=== PATIENT | female | born 1960 | race African-American/Black ===

== ENCOUNTER 2016-03-31 08:25 | Emergency (ER) | payer OTHER ==
[~2016-03-31] VITALS: Ht 162.6 cm; Wt 68.1 kg
[~2016-03-31 08:25] MED LIST: ALBU8HFA IH; COMBIH IH; GLYB5TAB8 PO; METF500T4 PO; PANT20TA PO; PRAV40 PO; QUET100T PO
[2016-03-31 09:14] LABS: BASOPHILS # (AUTO) 0.02 K/uL (0.00-0.20); BASOPHILS % (AUTO) 0.3 % (0.0-2.0); EOSINOPHILS % (AUTO) 8.27 % (1.0-6.0); HEMATOCRIT 48.9 % (36-46); HEMOGLOBIN 16.1 g/dL (12.0-16.0); MEAN CORPUSCULAR HEMOGLOBIN 30.4 pg (26.0-34.0); MEAN CORPUSCULAR HGB CONC 32.9 G/dL (31.0-37.0); MEAN CORPUSCULAR VOLUME 93 fL (80-100); MONOCYTES # (AUTO) 0.3 K/uL (0.1-1.0); NEUTROPHILS # (AUTO) 3.3 K/uL (1.8-7.7); NEUTROPHILS % (AUTO) 54.5 % (40.0-70.0); PLATELET COUNT (AUTO) 249 K/uL (150-450); RED BLOOD CELL COUNT(AUTO) 5.29 MIL/uL (4.00-5.20); RED CELL DISTRIBUTION WIDTH 14.2 % (11.5-14.5); WHITE BLOOD COUNT (AUTO) 6.1 K/uL (4.5-11.0)
[2016-03-31] MEDS ORDERED: INSULIN REGULAR, HUMAN 100 UNITS/ML IVP ONE ×2 (09:15→12:15)
[2016-03-31] MEDS ORDERED: ALBUTEROL SULFATE 5 MG/ML 20 ML NEB SOLN [BULK] NEB ONE (09:15)
[2016-03-31] MEDS ORDERED: IPRATROPIUM BROMIDE 0.5 MG/2.5 ML NEB SOLUTION NEB ONE ×2 (09:15→12:15)
[2016-03-31] MEDS ORDERED: 0.9% SODIUM CHLORIDE 5 ML NEB SOLUTION NEB ONE ×2 (09:21→12:27)
[2016-03-31 09:41] LABS: ANION GAP 8 mmol/L (8-16); CALCIUM, TOTAL 9.7 mg/dL (8.8-10.5); CARBON DIOXIDE 30 mmol/L (22-29); CHLORIDE 97 mmol/L (98-107); CREATININE 0.95 mg/dL (0.60-1.30); GLOMERULAR FILTR. RATE CALC > 60 mL/min (>60); POTASSIUM 4.5 mmol/L (3.5-5.1); SODIUM SERUM 135 mmol/L (136-145); UREA NITROGEN, BLOOD 11 mg/dL (7-18)
[2016-03-31 09:58] LABS: ALANINE AMINOTRANSFERASE 49 U/L (12-78); ALBUMIN 3.9 g/dL (3.4-5.0); ASPARTATE AMINOTRANSFERASE 34 U/L (15-37); BILIRUBIN,TOTAL 0.2 mg/dL (0.1-1.0); CREATINE KINASE MB 1.2 ng/mL (0-5); CREATINE KINASE, TOTAL 211 U/L (26-192); TOTAL PROTEIN, SERUM 8.2 g/dL (6.4-8.2)
[2016-03-31] MEDS ORDERED: KETOROLAC TROMETHAMINE 30 MG/ML VIAL IVP ONE (11:15)
[2016-03-31 11:51] LABS: GLUCOSE,POINT OF CARE 251 MG/DL (70-110)
[2016-03-31] MEDS ORDERED: ALBUTEROL SULFATE 2.5 MG/0.5 ML NEB SOLUTION NEB ONE (12:15)
[2016-03-31] MEDS ORDERED: PredniSONE 20 MG TABLET PO ONE (12:15)
[2016-03-31 12:16] LABS: GLUCOSE,POINT OF CARE 294 MG/DL (70-110)
[2016-03-31 13:01] LABS: GLUCOSE,POINT OF CARE 202 MG/DL (70-110)
[2016-03-31 13:20] VITALS: BP 135/75
[2016-08-25] MEDS ORDERED: PERCT PO (09:18)
[2016-08-25] MEDS ORDERED: PRED5 PO (09:19)
== END 2016-03-31 14:37 | disposition home or self-care (01) ==
LOC: EMS 08:28
DX: J44.1 Chronic obstructive pulmonary disease with (acute) exacerbation (principal); J45.901 Unspecified asthma with (acute) exacerbation; E11.9 Type 2 diabetes mellitus without complications; F17.210 Nicotine dependence, cigarettes, uncomplicated; Z88.0 Allergy status to penicillin; Z88.1 Allergy status to other antibiotic agents
CPT/HCPCS: 36415; 71010; 80053; 82550; 82553; 82962; 84484; 85025; 93005; 94644; 96374; 96375; 96376; 99285; 99406; J1815; J1885; J7512; J7611; J7613; 94640

== ENCOUNTER 2016-04-29 00:24 | Emergency (ER) | payer OTHER ==
[~2016-04-29] VITALS: Ht 162.6 cm; Wt 68.2 kg
[2016-04-29] MEDS ORDERED: IPRATROPIUM BROMIDE 0.5 MG/2.5 ML NEB SOLUTION NEB ONE ×2 (00:45→02:15)
[2016-04-29] MEDS ORDERED: ALBUTEROL SULFATE 5 MG/ML 20 ML NEB SOLN [BULK] NEB ONE ×2 (00:45→02:15)
[2016-04-29] MEDS ORDERED: 0.9% SODIUM CHLORIDE 5 ML NEB SOLUTION NEB ONE ×2 (00:57→02:28)
[2016-04-29] MEDS ORDERED: MethylPREDNISolone SOD SUCC 125 MG/2 ML VIAL IVP ONE (02:15)
[2016-04-29 03:50] VITALS: BP 125/81
[2016-08-25] MEDS ORDERED: PERCT PO (09:18)
[2016-08-25] MEDS ORDERED: PRED5 PO (09:19)
== END 2016-04-29 04:26 | disposition home or self-care (01) ==
LOC: EMS 00:26
DX: J45.901 Unspecified asthma with (acute) exacerbation (principal); J44.1 Chronic obstructive pulmonary disease with (acute) exacerbation; E11.9 Type 2 diabetes mellitus without complications; F17.210 Nicotine dependence, cigarettes, uncomplicated; Z88.1 Allergy status to other antibiotic agents; Z88.0 Allergy status to penicillin
CPT/HCPCS: 82962; 94644; 94645; 96374; 99285; 99406; J2930; J7611

== ENCOUNTER 2016-04-30 13:08 | Emergency (ER) | payer OTHER ==
[~2016-04-30] VITALS: Ht 167.6 cm; Wt 70.9 kg
[2016-04-30] MEDS ORDERED: ALBUTEROL SULFATE 5 MG/ML 20 ML NEB SOLN [BULK] NEB ONE (13:15)
[2016-04-30] MEDS ORDERED: IPRATROPIUM BROMIDE 0.5 MG/2.5 ML NEB SOLUTION NEB ONE (13:15)
[2016-04-30] MEDS ORDERED: 0.9% SODIUM CHLORIDE 15 ML NEB SOLUTION NEB ONE (13:20)
[2016-04-30 13:21] LABS: GLUCOSE,POINT OF CARE 467 MG/DL (70-110)
[2016-04-30] MEDS ORDERED: MethylPREDNISolone SOD SUCC 125 MG/2 ML VIAL IVP ONE (15:00)
[2016-04-30] MEDS ORDERED: AZITHROMYCIN 250 MG TABLET PO ONE (15:00)
[2016-04-30 15:05] LABS: BASOPHILS % (AUTO) 0.7 % (0.0-2.0); EOSINOPHILS % (AUTO) 3.3 % (1.0-6.0); HEMATOCRIT 48.5 % (36-46); HEMOGLOBIN 15.7 g/dL (12.0-16.0); LYMPHOCYTES # (AUTO) 3.1 K/uL (1.0-4.8); LYMPHOCYTES % (AUTO) 39.3 % (22.0-44.0); MEAN CORPUSCULAR HEMOGLOBIN 30.2 pg (26.0-34.0); MEAN CORPUSCULAR HGB CONC 32.4 G/dL (31.0-37.0); MEAN CORPUSCULAR VOLUME 93 fL (80-100); MONOCYTES # (AUTO) 0.4 K/uL (0.1-1.0); MONOCYTES % (AUTO) 5.3 % (2.0-9.0); NEUTROPHILS % (AUTO) 51.4 % (40.0-70.0); PLATELET COUNT (AUTO) 209 K/uL (150-450); RED BLOOD CELL COUNT(AUTO) 5.19 MIL/uL (4.00-5.20); WHITE BLOOD COUNT (AUTO) 7.9 K/uL (4.5-11.0)
[2016-04-30 15:22] LABS: ANION GAP 7 mmol/L (8-16); CALCIUM, TOTAL 9.8 mg/dL (8.8-10.5); CARBON DIOXIDE 31 mmol/L (22-29); CHLORIDE 97 mmol/L (98-107); CREATININE 1.12 mg/dL (0.60-1.30); GLOMERULAR FILTR. RATE CALC > 60 mL/min (>60); POTASSIUM 3.8 mmol/L (3.5-5.1); SODIUM SERUM 135 mmol/L (136-145); UREA NITROGEN, BLOOD 12 mg/dL (7-18)
[2016-04-30 15:26] LABS: ALANINE AMINOTRANSFERASE 24 U/L (12-78); ALBUMIN 3.7 g/dL (3.4-5.0); ASPARTATE AMINOTRANSFERASE 10 U/L (15-37); BILIRUBIN,TOTAL 0.2 mg/dL (0.1-1.0); TOTAL PROTEIN, SERUM 8.3 g/dL (6.4-8.2)
[2016-04-30 15:34] LABS: B-TYPE NATRIURETIC PEPTIDE 22 pg/mL (0-100)
[2016-04-30 15:46] VITALS: BP 137/72
[2016-08-25] MEDS ORDERED: PERCT PO (09:18)
[2016-08-25] MEDS ORDERED: PRED5 PO (09:19)
== END 2016-04-30 16:15 | disposition home or self-care (01) ==
LOC: EMS 13:09
DX: J45.901 Unspecified asthma with (acute) exacerbation (principal); J44.1 Chronic obstructive pulmonary disease with (acute) exacerbation; E11.9 Type 2 diabetes mellitus without complications; F17.210 Nicotine dependence, cigarettes, uncomplicated; Z88.1 Allergy status to other antibiotic agents; Z88.0 Allergy status to penicillin
CPT/HCPCS: 36415; 71010; 80053; 82962; 83880; 84484; 85025; 93005; 94644; 96374; 99285; J2930; J7611

== ENCOUNTER 2016-05-16 01:37 | Emergency (ER) | payer OTHER ==
[~2016-05-16] VITALS: Ht 165.1 cm; Wt 70.0 kg
[2016-05-16 01:55] VITALS: BP 148/98
[2016-05-16 02:11] LABS: GLUCOSE,POINT OF CARE 365 MG/DL (70-110)
[2016-05-16] MEDS ORDERED: ALBUTEROL SULFATE 2.5 MG/0.5 ML NEB SOLUTION NEB ONE (02:15)
[2016-05-16] MEDS ORDERED: IPRATROPIUM BROMIDE 0.5 MG/2.5 ML NEB SOLUTION NEB ONE (02:15)
[2016-05-16] MEDS ORDERED: 0.9% SODIUM CHLORIDE 5 ML NEB SOLUTION NEB ONE (02:22)
[2016-05-16 04:43] LABS: ADD UA MICROSCOPIC YES; APPEARANCE,URINE CLEAR (CLEAR); GLUCOSE, URINE (UA) 500 mg/dL (NEGATIVE); KETONES,URINE NEGATIVE (NEGATIVE); LEUKOCYTE ESTERASE ,URINE NEGATIVE (NEGATIVE); OCCULT BLOOD,URINE TRACE-LYSE (NEGATIVE); PROTEIN,URINE NEGATIVE (NEGATIVE)
[2016-05-16 04:49] LABS: SQUAMOUS EPITHELIAL CELL,UR Rare /LPF (None Seen)
[2016-05-16] MEDS ORDERED: DiphenhydrAMINE HCL 25 MG CAPSULE PO ONE (05:00)
[2016-08-25] MEDS ORDERED: PERCT PO (09:18)
[2016-08-25] MEDS ORDERED: PRED5 PO (09:19)
== END 2016-05-16 05:19 | disposition home or self-care (01) ==
LOC: EMS 01:40
DX: N76.0 Acute vaginitis (principal); J44.9 Chronic obstructive pulmonary disease, unspecified; J45.909 Unspecified asthma, uncomplicated; E11.9 Type 2 diabetes mellitus without complications; F17.210 Nicotine dependence, cigarettes, uncomplicated; Z88.0 Allergy status to penicillin; Z88.1 Allergy status to other antibiotic agents
CPT/HCPCS: 81001; 82962; 94640; 99283; J7613

== ENCOUNTER 2016-05-28 18:40 | Emergency (ER) | payer OTHER ==
[~2016-05-28] VITALS: Ht 162.6 cm; Wt 68.2 kg
[2016-05-28 18:52] LABS: GLUCOSE,POINT OF CARE 556 MG/DL (70-110)
[2016-05-28] MEDS ORDERED: ALBUTEROL SULFATE 5 MG/ML 20 ML NEB SOLN [BULK] NEB ONE (19:00)
[2016-05-28] MEDS ORDERED: IPRATROPIUM BROMIDE 0.5 MG/2.5 ML NEB SOLUTION NEB ONE (19:00)
[2016-05-28] MEDS ORDERED: 0.9% SODIUM CHLORIDE 5 ML NEB SOLUTION NEB ONE ×2 (19:02→19:43)
[2016-05-28] MEDS ORDERED: PredniSONE 20 MG TABLET PO ONE (19:15)
[2016-05-28 20:27] LABS: BASOPHILS % (AUTO) 0.5 % (0.0-2.0); EOSINOPHILS % (AUTO) 4.4 % (1.0-6.0); HEMATOCRIT 47.5 % (36-46); HEMOGLOBIN 15.7 g/dL (12.0-16.0); LYMPHOCYTES # (AUTO) 2.1 K/uL (1.0-4.8); LYMPHOCYTES % (AUTO) 39.2 % (22.0-44.0); MEAN CORPUSCULAR HEMOGLOBIN 30.4 pg (26.0-34.0); MEAN CORPUSCULAR HGB CONC 33.1 G/dL (31.0-37.0); MEAN CORPUSCULAR VOLUME 92 fL (80-100); MONOCYTES # (AUTO) 0.4 K/uL (0.1-1.0); MONOCYTES % (AUTO) 7.5 % (2.0-9.0); NEUTROPHILS # (AUTO) 2.6 K/uL (1.8-7.7); NEUTROPHILS % (AUTO) 48.4 % (40.0-70.0); PLATELET COUNT (AUTO) 220 K/uL (150-450); RED BLOOD CELL COUNT(AUTO) 5.18 MIL/uL (4.00-5.20); WHITE BLOOD COUNT (AUTO) 5.4 K/uL (4.5-11.0)
[2016-05-28 20:43] LABS: ALANINE AMINOTRANSFERASE 38 U/L (12-78); ALBUMIN 3.7 g/dL (3.4-5.0); ANION GAP 8 mmol/L (8-16); ASPARTATE AMINOTRANSFERASE 22 U/L (15-37); BILIRUBIN,TOTAL 0.3 mg/dL (0.1-1.0); CALCIUM, TOTAL 9.2 mg/dL (8.8-10.5); CARBON DIOXIDE 30 mmol/L (22-29); CHLORIDE 95 mmol/L (98-107); CREATININE 1.02 mg/dL (0.60-1.30); GLOMERULAR FILTR. RATE CALC > 60 mL/min (>60); POTASSIUM 4.5 mmol/L (3.5-5.1); SODIUM SERUM 133 mmol/L (136-145); TOTAL PROTEIN, SERUM 8.2 g/dL (6.4-8.2); UREA NITROGEN, BLOOD 12 mg/dL (7-18)
[2016-05-28] MEDS ORDERED: SODIUM CHLORIDE 0.9% 1,000 ML IV ONE ×2 (21:00→22:00)
[2016-05-28] MEDS ORDERED: INSULIN REGULAR, HUMAN 100 UNITS/ML IVP ONE ×2 (21:15→23:00)
[2016-05-28 22:12] LABS: GLUCOSE COMMENT 1 Doctor Notified; GLUCOSE,POINT OF CARE 341 MG/DL (70-110)
[2016-05-28 22:57] LABS: GLUCOSE COMMENT 1 Doctor Notified; GLUCOSE,POINT OF CARE 379 MG/DL (70-110)
[2016-05-28 23:29] VITALS: BP 140/78
[2016-05-28 23:32] LABS: GLUCOSE COMMENT 1 Doctor Notified; GLUCOSE,POINT OF CARE 396 MG/DL (70-110)
[2016-08-25] MEDS ORDERED: PERCT PO (09:18)
[2016-08-25] MEDS ORDERED: PRED5 PO (09:19)
== END 2016-05-28 23:45 | disposition home or self-care (01) ==
LOC: EMS 18:44
DX: J45.909 Unspecified asthma, uncomplicated (principal); E11.65 Type 2 diabetes mellitus with hyperglycemia; J44.9 Chronic obstructive pulmonary disease, unspecified; F17.210 Nicotine dependence, cigarettes, uncomplicated; Z88.0 Allergy status to penicillin; Z88.1 Allergy status to other antibiotic agents
CPT/HCPCS: 36415; 71010; 80053; 82948; 82962; 84484; 85025; 93005; 94644; 96361; 96374; 96376; 99285; J1815; J7030; J7512; J7611

== ENCOUNTER 2016-05-30 10:16 | Inpatient (IN) | payer OTHER ==
[~2016-05-30] VITALS: Ht 162.6 cm; Wt 68.3 kg
[2016-05-30] MEDS ORDERED: AZIT250T6 PO (10:20)
[2016-05-30] MEDS ORDERED: PRED1 PO (10:20)
[2016-05-30] MEDS ORDERED: MethylPREDNISolone SOD SUCC 125 MG/2 ML VIAL IVP ONE ×2 (11:30→13:45)
[2016-05-30] MEDS ORDERED: IPRATROPIUM BROMIDE 0.5 MG/2.5 ML NEB SOLUTION NEB ONE ×2 (11:30→15:00)
[2016-05-30] MEDS ORDERED: ALBUTEROL SULFATE 5 MG/ML 20 ML NEB SOLN [BULK] NEB ONE ×3 (11:30→15:00)
[2016-05-30 12:27] LABS: BASOPHILS % (AUTO) 0.6 % (0.0-2.0); EOSINOPHILS % (AUTO) 5.3 % (1.0-6.0); HEMOGLOBIN 16.4 g/dL (12.0-16.0); LYMPHOCYTES # (AUTO) 2.3 K/uL (1.0-4.8); LYMPHOCYTES % (AUTO) 42.2 % (22.0-44.0); MEAN CORPUSCULAR HEMOGLOBIN 30.4 pg (26.0-34.0); MEAN CORPUSCULAR HGB CONC 32.9 G/dL (31.0-37.0); MEAN CORPUSCULAR VOLUME 92 fL (80-100); MONOCYTES # (AUTO) 0.4 K/uL (0.1-1.0); MONOCYTES % (AUTO) 7.4 % (2.0-9.0); NEUTROPHILS # (AUTO) 2.5 K/uL (1.8-7.7); NEUTROPHILS % (AUTO) 44.5 % (40.0-70.0); PLATELET COUNT (AUTO) 211 K/uL (150-450); RED BLOOD CELL COUNT(AUTO) 5.41 MIL/uL (4.00-5.20); RED CELL DISTRIBUTION WIDTH 14.1 % (11.5-14.5); WHITE BLOOD COUNT (AUTO) 5.5 K/uL (4.5-11.0)
[2016-05-30 12:39] LABS: ANION GAP 7 mmol/L (8-16); CARBON DIOXIDE 31 mmol/L (22-29); CHLORIDE 96 mmol/L (98-107); CREATININE 0.78 mg/dL (0.60-1.30); GLOMERULAR FILTR. RATE CALC > 60 mL/min (>60); POTASSIUM 4.2 mmol/L (3.5-5.1); SODIUM SERUM 134 mmol/L (136-145); UREA NITROGEN, BLOOD 7 mg/dL (7-18)
[2016-05-30 12:54] LABS: ALANINE AMINOTRANSFERASE 44 U/L (12-78); ASPARTATE AMINOTRANSFERASE 34 U/L (15-37); BILIRUBIN,TOTAL 0.4 mg/dL (0.1-1.0); TOTAL PROTEIN, SERUM 8.6 g/dL (6.4-8.2)
[2016-05-30] MEDS ORDERED: TraMADol HCL 50 MG TABLET PO ONE (14:00)
[2016-05-30 14:52] LABS: GLUCOSE,POINT OF CARE 311 MG/DL (70-110)
[2016-05-30] MEDS ORDERED: SODIUM CHLORIDE 0.9% 500 ML IV ONE (15:00)
[2016-05-30] MEDS ORDERED: INSULIN REGULAR, HUMAN 100 UNITS/ML IVP ONE (15:00)
[2016-05-30] MEDS ORDERED: LEVOFLOXACIN 750 MG/D5% WATER 150 ML IV ONE (16:00)
[2016-05-30] MEDS ORDERED: 0.9% SODIUM CHLORIDE 10 ML SYRINGE IVP PRN (16:15)
[2016-05-30] MEDS ORDERED: ACETAMINOPHEN 325 MG TABLET PO PRN ×2 (16:15→21:00)
[2016-05-30] MEDS ORDERED: INSULIN ASPART 100 UNITS/ML SQ PRN (17:00)
[2016-05-30] MEDS ORDERED: DEXTROSE 50%-WATER 25 GM/50 ML SYRINGE IVP PRN ×2 (17:00→21:00)
[2016-05-30 17:02] LABS: GLUCOSE,POINT OF CARE 257 MG/DL (70-110)
[2016-05-30 17:32] LABS: GLUCOSE COMMENT 1 Doctor Notified; GLUCOSE,POINT OF CARE 294 MG/DL (70-110)
[2016-05-30 18:41] LABS: GLUCOSE COMMENT 1 Doctor Notified; GLUCOSE,POINT OF CARE 308 MG/DL (70-110)
[2016-05-30] MEDS ORDERED: ALBUTEROL SULFATE 2.5 MG/0.5 ML NEB SOLUTION NEB SCH (19:00)
[2016-05-30] MEDS ORDERED: IPRATROPIUM BROMIDE 0.5 MG/2.5 ML NEB SOLUTION NEB SCH (19:00)
[2016-05-30] MEDS ORDERED: IPRATROPIUM BROMIDE 0.5 MG/2.5 ML NEB SOLUTION NEB PRN (21:00)
[2016-05-30] MEDS ORDERED: MAGNESIUM HYDROXIDE SUSPENSION 30 ML UDCUP PO PRN (21:00)
[2016-05-30] MEDS ORDERED: ALBUTEROL SULFATE 2.5 MG/0.5 ML NEB SOLUTION NEB PRN (21:00)
[2016-05-30 21:27] VITALS: BP 139/81
[2016-05-30 21:29] VITALS: BP 139/52
[2016-05-30] MEDS ORDERED: INSULIN ASPART 100 UNITS/ML SQ ONE (21:45)
[2016-05-30] MEDS: DOCUSATE SODIUM 100 MG CAPSULE PO SCH (21:52)
[2016-05-30] MEDS: PANTOPRAZOLE SODIUM 40 MG DR TABLET PO SCH (21:52)
[2016-05-30] MEDS: OxyCODONE HCL/ACETAMINOPHEN 5-325 MG TABLET PO PRN (21:52)
[2016-05-30] MEDS: QUEtiapine FUMARATE 25 MG TABLET PO SCH (21:53)
[2016-05-30] MEDS: INSULIN ASPART 100 UNITS/ML SQ PRN (21:55)
[2016-05-30] MEDS ORDERED: INFLUENZA VIRUS VACCINE QVS 2016-17 (3YR+)/PF 60 MCG/0.5 ML SYRINGE IM ONE (23:15)
[2016-05-30 23:27] LABS: GLUCOSE COMMENT 1 Received Meds; GLUCOSE,POINT OF CARE 557 MG/DL (70-110)
[2016-05-30 23:27] LABS: GLUCOSE,POINT OF CARE 567 MG/DL (70-110)
[2016-05-31] MEDS ORDERED: MethylPREDNISolone SOD SUCC 125 MG/2 ML VIAL IVP SCH
[2016-05-31 00:02] VITALS: BP 143/54
[2016-05-31] MEDS: HEPARIN SODIUM,PORCINE 5,000 UNITS/ML VIAL SQ SCH ×4 (00:42→23:14)
[2016-05-31 05:06] VITALS: BP 148/89
[2016-05-31 06:31] LABS: BASOPHILS # (AUTO) 0.02 K/uL (0.00-0.20); BASOPHILS % (AUTO) 0.3 % (0.0-2.0); EOSINOPHILS # (AUTO) 0.01 K/uL (0.00-0.70); HEMATOCRIT 42.4 % (36-46); HEMOGLOBIN 13.9 g/dL (12.0-16.0); LYMPHOCYTES # (AUTO) 0.6 K/uL (1.0-4.8); LYMPHOCYTES % (AUTO) 9.8 % (22.0-44.0); MEAN CORPUSCULAR HEMOGLOBIN 30.2 pg (26.0-34.0); MEAN CORPUSCULAR HGB CONC 32.9 G/dL (31.0-37.0); MEAN CORPUSCULAR VOLUME 92 fL (80-100); MONOCYTES % (AUTO) 0.7 % (2.0-9.0); PLATELET COUNT (AUTO) 192 K/uL (150-450); RED BLOOD CELL COUNT(AUTO) 4.61 MIL/uL (4.00-5.20); RED CELL DISTRIBUTION WIDTH 13.7 % (11.5-14.5); WHITE BLOOD COUNT (AUTO) 5.6 K/uL (4.5-11.0)
[2016-05-31] MEDS: GlipiZIDE 5 MG TABLET PO SCH ×2 (06:31→17:51)
[2016-05-31] MEDS ORDERED: DEXTROSE 50%-WATER 25 GM/50 ML SYRINGE IVP PRN (06:45)
[2016-05-31] MEDS: INSULIN ASPART 100 UNITS/ML SQ PRN ×5 (06:53→21:09)
[2016-05-31 07:00] LABS: ALANINE AMINOTRANSFERASE 34 U/L (12-78); ALBUMIN 3.4 g/dL (3.4-5.0); ANION GAP 11 mmol/L (8-16); ASPARTATE AMINOTRANSFERASE 14 U/L (15-37); BILIRUBIN,TOTAL 0.3 mg/dL (0.1-1.0); CALCIUM, TOTAL 8.6 mg/dL (8.8-10.5); CARBON DIOXIDE 28 mmol/L (22-29); CHLORIDE 94 mmol/L (98-107); CREATININE 1.04 mg/dL (0.60-1.30); GLOMERULAR FILTR. RATE CALC > 60 mL/min (>60); POTASSIUM 4.3 mmol/L (3.5-5.1); SODIUM SERUM 133 mmol/L (136-145); TOTAL PROTEIN, SERUM 7.8 g/dL (6.4-8.2); UREA NITROGEN, BLOOD 17 mg/dL (7-18)
[2016-05-31 07:28] LABS: HEMOGLOBIN A1C 12.2 % (4.5-6.2)
[2016-05-31 07:30] VITALS: BP 141/79
[2016-05-31] MEDS: MethylPREDNISolone SOD SUCC 40 MG/ML VIAL IVP SCH ×2 (09:01→16:19)
[2016-05-31] MEDS: MetFORMIN HCL 850 MG TABLET PO SCH ×2 (09:01→17:51)
[2016-05-31] MEDS: DOCUSATE SODIUM 100 MG CAPSULE PO SCH ×2 (09:02→20:51)
[2016-05-31] MEDS: PANTOPRAZOLE SODIUM 40 MG DR TABLET PO SCH (09:02)
[2016-05-31] MEDS ORDERED: MAGNESIUM HYDROXIDE SUSPENSION 30 ML UDCUP PO PRN (09:45)
[2016-05-31 12:38] LABS: GLUCOSE COMMENT 1 Doctor Notified; GLUCOSE,POINT OF CARE 531 MG/DL (70-110)
[2016-05-31 12:38] LABS: GLUCOSE COMMENT 1 Received Meds; GLUCOSE,POINT OF CARE 241 MG/DL (70-110)
[2016-05-31 12:46] VITALS: BP 155/97
[2016-05-31] MEDS ORDERED: SODIUM CHLORIDE 0.9% 100 ML ONE (15:44)
[2016-05-31] MEDS ORDERED: LEVOFLOXACIN 500 MG/D5% WATER 100 ML IV SCH (16:00)
[2016-05-31 16:39] VITALS: BP 121/67
[2016-05-31] MEDS: QUEtiapine FUMARATE 25 MG TABLET PO SCH (20:52)
[2016-05-31] MEDS: OxyCODONE HCL/ACETAMINOPHEN 5-325 MG TABLET PO PRN (20:52)
[2016-05-31 21:37] LABS: GLUCOSE,POINT OF CARE 429 MG/DL (70-110)
[2016-05-31 22:22] LABS: GLUCOSE COMMENT 1 Received Meds; GLUCOSE,POINT OF CARE 161 MG/DL (70-110)
[2016-05-31 23:35] VITALS: BP 142/92
[2016-06-01 05:02] VITALS: BP 141/79
[2016-06-01] MEDS: GlipiZIDE 5 MG TABLET PO SCH (06:01)
[2016-06-01] MEDS: INSULIN ASPART 100 UNITS/ML SQ PRN (06:01)
[2016-06-01] MEDS: OxyCODONE HCL/ACETAMINOPHEN 5-325 MG TABLET PO PRN (06:05)
[2016-06-01 06:14] LABS: ALANINE AMINOTRANSFERASE 24 U/L (12-78); ALBUMIN 3.1 g/dL (3.4-5.0); ANION GAP 4 mmol/L (8-16); ASPARTATE AMINOTRANSFERASE 11 U/L (15-37); BILIRUBIN,TOTAL 0.2 mg/dL (0.1-1.0); CALCIUM, TOTAL 9.1 mg/dL (8.8-10.5); CARBON DIOXIDE 30 mmol/L (22-29); CHLORIDE 96 mmol/L (98-107); CREATININE 0.92 mg/dL (0.60-1.30); GLOMERULAR FILTR. RATE CALC > 60 mL/min (>60); POTASSIUM 3.9 mmol/L (3.5-5.1); SODIUM SERUM 130 mmol/L (136-145); TOTAL PROTEIN, SERUM 6.9 g/dL (6.4-8.2); UREA NITROGEN, BLOOD 16 mg/dL (7-18)
[2016-06-01 06:34] LABS: BASOPHILS # (AUTO) 0.01 K/uL (0.00-0.20); BASOPHILS % (AUTO) 0.1 % (0.0-2.0); EOSINOPHILS # (AUTO) 0.02 K/uL (0.00-0.70); EOSINOPHILS % (AUTO) 0.26 % (1.0-6.0); HEMATOCRIT 42.6 % (36-46); HEMOGLOBIN 14.3 g/dL (12.0-16.0); LYMPHOCYTES # (AUTO) 2.2 K/uL (1.0-4.8); LYMPHOCYTES % (AUTO) 23.4 % (22.0-44.0); MEAN CORPUSCULAR HEMOGLOBIN 31.2 pg (26.0-34.0); MEAN CORPUSCULAR HGB CONC 33.7 G/dL (31.0-37.0); MEAN CORPUSCULAR VOLUME 93 fL (80-100); MONOCYTES # (AUTO) 0.4 K/uL (0.1-1.0); MONOCYTES % (AUTO) 4.6 % (2.0-9.0); NEUTROPHILS # (AUTO) 6.7 K/uL (1.8-7.7); NEUTROPHILS % (AUTO) 71.6 % (40.0-70.0); PLATELET COUNT (AUTO) 192 K/uL (150-450); RED BLOOD CELL COUNT(AUTO) 4.59 MIL/uL (4.00-5.20); RED CELL DISTRIBUTION WIDTH 14.4 % (11.5-14.5); WHITE BLOOD COUNT (AUTO) 9.3 K/uL (4.5-11.0)
[2016-06-01 07:22] VITALS: BP 151/91
[2016-06-01 07:27] LABS: GLUCOSE COMMENT 1 Received Meds; GLUCOSE,POINT OF CARE 276 MG/DL (70-110)
[2016-06-01] MEDS: PANTOPRAZOLE SODIUM 40 MG DR TABLET PO SCH (08:13)
[2016-06-01] MEDS: HEPARIN SODIUM,PORCINE 5,000 UNITS/ML VIAL SQ SCH (08:14)
[2016-06-01] MEDS: DOCUSATE SODIUM 100 MG CAPSULE PO SCH (08:14)
[2016-06-01] MEDS: MetFORMIN HCL 850 MG TABLET PO SCH (08:14)
[2016-08-25] MEDS ORDERED: PERCT PO (09:18)
[2016-08-25] MEDS ORDERED: PRED5 PO (09:19)
== END 2016-06-01 10:00 | disposition home or self-care (01) | DRG 140 ==
LOC: EMS 10:17 → 6N 19:30
PROVIDERS: ADMIT Internal Medicine; ATTEND Internal Medicine
DX: J44.0 Chronic obstructive pulmonary disease with (acute) lower respiratory infection (principal); E11.65 Type 2 diabetes mellitus with hyperglycemia; J44.1 Chronic obstructive pulmonary disease with (acute) exacerbation; E78.5 Hyperlipidemia, unspecified; F31.9 Bipolar disorder, unspecified; J20.9 Acute bronchitis, unspecified; J45.909 Unspecified asthma, uncomplicated; K21.9 Gastro-esophageal reflux disease without esophagitis; F17.210 Nicotine dependence, cigarettes, uncomplicated; Z88.0 Allergy status to penicillin; Z88.1 Allergy status to other antibiotic agents; Z91.013 Allergy to seafood; Z79.84 Long term (current) use of oral hypoglycemic drugs; Z79.899 Other long term (current) drug therapy
CPT/HCPCS: 71020; 82306; 82962; 83036; 87040; 94640; 94644; 96361; 96365; 96372; 96375; 99285; 99406; J1644; J1815; J1956; J2920; J2930; J7040; J7050

== ENCOUNTER 2016-06-12 22:07 | Emergency (ER) | payer OTHER ==
[~2016-06-12] VITALS: Ht 162.6 cm; Wt 68.2 kg
[~2016-06-12 22:07] MED LIST changes: +AZIT250T6 PO; +PRED1 PO
[2016-06-12] MEDS ORDERED: ALBUTEROL SULFATE 5 MG/ML 20 ML NEB SOLN [BULK] NEB ONE (22:15)
[2016-06-12] MEDS ORDERED: IPRATROPIUM BROMIDE 0.5 MG/2.5 ML NEB SOLUTION NEB ONE (22:15)
[2016-06-12] MEDS ORDERED: 0.9% SODIUM CHLORIDE 5 ML NEB SOLUTION NEB ONE (22:30)
[2016-06-12 23:37] LABS: GLUCOSE,POINT OF CARE 376 MG/DL (70-110)
[2016-06-13 00:02] VITALS: BP 142/86
[2016-06-13] MEDS ORDERED: ACETAMINOPHEN 325 MG TABLET PO ONE (00:15)
== END 2016-06-13 00:34 | disposition home or self-care (01) ==
LOC: EMS 22:08
DX: J44.1 Chronic obstructive pulmonary disease with (acute) exacerbation (principal); J45.901 Unspecified asthma with (acute) exacerbation; L84 Corns and callosities; E11.9 Type 2 diabetes mellitus without complications; F17.210 Nicotine dependence, cigarettes, uncomplicated; Z88.0 Allergy status to penicillin; Z88.1 Allergy status to other antibiotic agents
CPT/HCPCS: 82962; 94644; 99285; J7611

== ENCOUNTER 2016-06-19 18:03 | Emergency (ER) | payer OTHER ==
[~2016-06-19] VITALS: Ht 162.6 cm; Wt 68.2 kg
[2016-06-19 18:22] LABS: GLUCOSE,POINT OF CARE 331 MG/DL (70-110)
[2016-06-19] MEDS ORDERED: 0.9% SODIUM CHLORIDE 5 ML NEB SOLUTION NEB ONE (19:05)
[2016-06-19] MEDS: IPRATROPIUM BROMIDE 0.5 MG/2.5 ML NEB SOLUTION NEB ONE (19:07)
[2016-06-19] MEDS: ALBUTEROL SULFATE 5 MG/ML 20 ML NEB SOLN [BULK] NEB ONE (19:08)
[2016-06-19] MEDS: DOXYCYCLINE 100 MG CAPSULE PO ONE (21:16)
[2016-06-19] MEDS: PredniSONE 20 MG TABLET PO ONE (21:16)
[2016-06-19 21:40] VITALS: BP 142/81
== END 2016-06-19 22:21 | disposition home or self-care (01) ==
LOC: EMS 18:04
DX: J44.1 Chronic obstructive pulmonary disease with (acute) exacerbation (principal); J45.909 Unspecified asthma, uncomplicated; F17.210 Nicotine dependence, cigarettes, uncomplicated; E11.9 Type 2 diabetes mellitus without complications; Z88.1 Allergy status to other antibiotic agents; Z88.0 Allergy status to penicillin
CPT/HCPCS: 82962; 94644; 99285; 99406; J7512; J7611

== ENCOUNTER 2016-07-04 14:58 | Emergency (ER) | payer OTHER ==
[~2016-07-04] VITALS: Ht 162.6 cm; Wt 68.2 kg
[~2016-07-04 14:58] MED LIST changes: -AZIT250T6 PO
[2016-07-04] MEDS ORDERED: INSULIN REGULAR, HUMAN 100 UNITS/ML SQ ONE (15:30)
[2016-07-04] MEDS ORDERED: ACETAMINOPHEN 325 MG TABLET PO ONE (15:30)
[2016-07-04] MEDS ORDERED: ALBUTEROL SULFATE 5 MG/ML 20 ML NEB SOLN [BULK] NEB ONE (15:30)
[2016-07-04] MEDS ORDERED: IPRATROPIUM BROMIDE 0.5 MG/2.5 ML NEB SOLUTION NEB ONE (15:30)
[2016-07-04 16:41] VITALS: BP 155/85
[2016-07-04 16:47] LABS: GLUCOSE,POINT OF CARE 408 MG/DL (70-110)
[2016-07-04 17:37] LABS: GLUCOSE,POINT OF CARE 358 MG/DL (70-110)
== END 2016-07-04 17:59 | disposition home or self-care (01) ==
LOC: EMS 15:01
DX: J45.909 Unspecified asthma, uncomplicated (principal); J44.9 Chronic obstructive pulmonary disease, unspecified; M54.5 Low back pain; G89.29 Other chronic pain; E11.65 Type 2 diabetes mellitus with hyperglycemia; F17.210 Nicotine dependence, cigarettes, uncomplicated; Z88.0 Allergy status to penicillin; Z88.1 Allergy status to other antibiotic agents
CPT/HCPCS: 82948; 82962; 94644; 96372; 99285; 99406; J1815; J7611

== ENCOUNTER 2016-07-26 15:19 | Emergency (ER) | payer OTHER ==
[~2016-07-26] VITALS: Ht 165.1 cm; Wt 70.5 kg
[2016-07-26] MEDS ORDERED: SODIUM CHLORIDE 0.9% 1,000 ML IV ONE (16:00)
[2016-07-26] MEDS ORDERED: INSULIN REGULAR, HUMAN 100 UNITS/ML IVP ONE (16:00)
[2016-07-26] MEDS ORDERED: KETOROLAC TROMETHAMINE 30 MG/ML VIAL IVP ONE (16:30)
[2016-07-26 17:39] VITALS: BP 170/92
[2016-07-26] MEDS ORDERED: DiphenhydrAMINE HCL 50 MG CAPSULE PO ONE (17:45)
[2016-07-26 17:47] LABS: GLUCOSE,POINT OF CARE 130 MG/DL (70-110)
[2016-07-26] MEDS ORDERED: ALBUTEROL SULFATE 2.5 MG/0.5 ML NEB SOLUTION NEB ONE (18:15)
[2016-07-26] MEDS ORDERED: IPRATROPIUM BROMIDE 0.5 MG/2.5 ML NEB SOLUTION NEB ONE (18:15)
[2016-07-26] MEDS ORDERED: 0.9% SODIUM CHLORIDE 5 ML NEB SOLUTION NEB ONE (18:34)
== END 2016-07-26 19:33 | disposition home or self-care (01) ==
LOC: EMS 15:20
DX: S60.222A Contusion of left hand, initial encounter (principal); E11.65 Type 2 diabetes mellitus with hyperglycemia; J45.909 Unspecified asthma, uncomplicated; J44.9 Chronic obstructive pulmonary disease, unspecified; E11.9 Type 2 diabetes mellitus without complications; F17.210 Nicotine dependence, cigarettes, uncomplicated; Z88.0 Allergy status to penicillin; Z88.1 Allergy status to other antibiotic agents; W23.0XXA Caught, crushed, jammed, or pinched between moving objects, initial encounter; Y93.89 Activity, other specified; Y92.89 Other specified places as the place of occurrence of the external cause; Y99.8 Other external cause status
CPT/HCPCS: 73130; 82962; 94640; 96374; 96375; 99284; 99406; J1815; J1885; J7030; J7613

== ENCOUNTER 2016-08-14 11:26 | Emergency (ER) | payer OTHER ==
[~2016-08-14] VITALS: Ht 167.6 cm; Wt 70.9 kg
[2016-08-14 11:37] LABS: GLUCOSE,POINT OF CARE 159 MG/DL (70-110)
[2016-08-14] MEDS ORDERED: ALBUTEROL SULFATE 2.5 MG/0.5 ML NEB SOLUTION NEB PRN (11:45)
[2016-08-14] MEDS ORDERED: IPRATROPIUM BROMIDE 0.5 MG/2.5 ML NEB SOLUTION NEB PRN (11:45)
[2016-08-14] MEDS ORDERED: DEXAMETHASONE SOD PHOS 4 MG/ML 5 ML VIAL IVP ONE (16:00)
[2016-08-14] MEDS ORDERED: LEVOFLOXACIN 750 MG/D5% WATER 150 ML IV ONE (16:00)
[2016-08-14 17:08] VITALS: BP 153/93
[2016-08-14] MEDS ORDERED: ALBUTEROL SULFATE HFA 90 MCG/PUFF 8 GM INHALER IH ONE (17:15)
== END 2016-08-14 17:47 | disposition home or self-care (01) ==
LOC: EMS 11:27
DX: J44.1 Chronic obstructive pulmonary disease with (acute) exacerbation (principal); J45.901 Unspecified asthma with (acute) exacerbation; J06.9 Acute upper respiratory infection, unspecified; K21.9 Gastro-esophageal reflux disease without esophagitis; E11.9 Type 2 diabetes mellitus without complications; I10 Essential (primary) hypertension; F17.210 Nicotine dependence, cigarettes, uncomplicated; Z88.0 Allergy status to penicillin; Z88.1 Allergy status to other antibiotic agents
CPT/HCPCS: 71010; 82962; 94640; 96365; 96375; 99284; J1100; J1956; J7613; J3535

== ENCOUNTER 2016-09-08 12:18 | Emergency (ER) | payer OTHER ==
[~2016-09-08] VITALS: Ht 162.6 cm; Wt 68.2 kg
[~2016-09-08 12:18] MED LIST changes: +PERCT PO; -PRED1 PO; +PRED5 PO
[2016-09-08 12:42] LABS: GLUCOSE,POINT OF CARE 330 MG/DL (70-110)
[2016-09-08] MEDS ORDERED: 0.9% SODIUM CHLORIDE 5 ML NEB SOLUTION NEB ONE ×2 (13:30)
[2016-09-08] MEDS ORDERED: ALBUTEROL SULFATE 5 MG/ML 20 ML NEB SOLN [BULK] NEB ONE (13:30)
[2016-09-08] MEDS ORDERED: IPRATROPIUM BROMIDE 0.5 MG/2.5 ML NEB SOLUTION NEB ONE (13:30)
[2016-09-08] MEDS ORDERED: DEXAMETHASONE SOD PHOS 4 MG/ML 5 ML VIAL IM ONE (13:30)
[2016-09-08 14:40] VITALS: BP 152/83
== END 2016-09-08 16:08 | disposition home or self-care (01) ==
LOC: EMS 12:21
DX: J44.1 Chronic obstructive pulmonary disease with (acute) exacerbation (principal); J45.901 Unspecified asthma with (acute) exacerbation; E11.9 Type 2 diabetes mellitus without complications; F31.9 Bipolar disorder, unspecified; F17.210 Nicotine dependence, cigarettes, uncomplicated; K21.9 Gastro-esophageal reflux disease without esophagitis; I10 Essential (primary) hypertension; Z88.0 Allergy status to penicillin; Z88.1 Allergy status to other antibiotic agents
CPT/HCPCS: 82962; 94644; 96372; 99285; 99407; J1100; J7611

== ENCOUNTER 2016-09-09 12:20 | Emergency (ER) | payer OTHER ==
[~2016-09-09] VITALS: Ht 162.6 cm; Wt 63.6 kg
[~2016-09-09 12:20] MED LIST changes: -PERCT PO; -PRED5 PO
[2016-09-09 12:57] LABS: GLUCOSE,POINT OF CARE 189 MG/DL (70-110)
[2016-09-09] MEDS ORDERED: IPRATROPIUM BROMIDE 0.5 MG/2.5 ML NEB SOLUTION NEB ONE (13:45)
[2016-09-09] MEDS ORDERED: MethylPREDNISolone SOD SUCC 125 MG/2 ML VIAL IVP ONE ×2 (13:45→15:15)
[2016-09-09] MEDS ORDERED: ALBUTEROL SULFATE 2.5 MG/0.5 ML NEB SOLUTION NEB ONE (13:45)
[2016-09-09 13:56] LABS: BASOPHILS # (AUTO) 0.06 K/uL (0.00-0.20); BASOPHILS % (AUTO) 0.8 % (0.0-2.0); EOSINOPHILS % (AUTO) 0.05 % (1.0-6.0); HEMATOCRIT 43.8 % (36-46); HEMOGLOBIN 14.4 g/dL (12.0-16.0); LYMPHOCYTES # (AUTO) 1.8 K/uL (1.0-4.8); LYMPHOCYTES % (AUTO) 22.3 % (22.0-44.0); MEAN CORPUSCULAR HGB CONC 32.8 G/dL (31.0-37.0); MEAN CORPUSCULAR VOLUME 94 fL (80-100); MONOCYTES # (AUTO) 0.4 K/uL (0.1-1.0); MONOCYTES % (AUTO) 4.5 % (2.0-9.0); NEUTROPHILS # (AUTO) 5.7 K/uL (1.8-7.7); NEUTROPHILS % (AUTO) 72.4 % (40.0-70.0); PLATELET COUNT (AUTO) 261 K/uL (150-450); RED BLOOD CELL COUNT(AUTO) 4.64 MIL/uL (4.00-5.20); WHITE BLOOD COUNT (AUTO) 7.9 K/uL (4.5-11.0)
[2016-09-09 14:04] LABS: ANION GAP 12 mmol/L (8-16); CALCIUM, TOTAL 9.5 mg/dL (8.8-10.5); CARBON DIOXIDE 24 mmol/L (22-29); CHLORIDE 104 mmol/L (98-107); CREATININE 1.19 mg/dL (0.60-1.30); GLOMERULAR FILTR. RATE CALC 57 mL/min (>60); POTASSIUM 3.7 mmol/L (3.5-5.1); SODIUM SERUM 140 mmol/L (136-145); UREA NITROGEN, BLOOD 11 mg/dL (7-18)
[2016-09-09 14:17] LABS: B-TYPE NATRIURETIC PEPTIDE 51 pg/mL (0-100)
[2016-09-09 14:30] LABS: ALANINE AMINOTRANSFERASE 35 U/L (12-78); ALBUMIN 3.9 g/dL (3.4-5.0); ASPARTATE AMINOTRANSFERASE 21 U/L (15-37); BILIRUBIN,TOTAL 0.4 mg/dL (0.1-1.0); CREATINE KINASE MB 1.4 ng/mL (0-5); CREATINE KINASE, TOTAL 163 U/L (26-192); TOTAL PROTEIN, SERUM 7.9 g/dL (6.4-8.2)
[2016-09-09] MEDS ORDERED: LEVOFLOXACIN 500 MG/D5% WATER 100 ML IV ONE (15:15)
[2016-09-09] MEDS ORDERED: ALBUTEROL SULFATE HFA 90 MCG/PUFF 8 GM INHALER IH ONE (16:00)
[2016-09-09 17:36] VITALS: BP 150/92
== END 2016-09-09 17:52 | disposition home or self-care (01) ==
LOC: EMS 12:24
DX: J44.9 Chronic obstructive pulmonary disease, unspecified (principal); J45.909 Unspecified asthma, uncomplicated; I10 Essential (primary) hypertension; E11.9 Type 2 diabetes mellitus without complications; K21.9 Gastro-esophageal reflux disease without esophagitis; F17.210 Nicotine dependence, cigarettes, uncomplicated; Z88.0 Allergy status to penicillin; Z88.1 Allergy status to other antibiotic agents
CPT/HCPCS: 36415; 71010; 80053; 82550; 82553; 82962; 83880; 84484; 85025; 93005; 94640; 96365; 96375; 96376; 99285; G0480; J1956; J2930; J7613; J3535

== ENCOUNTER 2016-09-17 01:48 | Emergency (ER) | payer OTHER ==
[~2016-09-17] VITALS: Ht 162.6 cm; Wt 73.0 kg
[2016-09-17 02:07] LABS: GLUCOSE,POINT OF CARE 301 MG/DL (70-110)
[2016-09-17] MEDS ORDERED: KETOROLAC TROMETHAMINE 30 MG/ML VIAL IVP ONE (05:45)
[2016-09-17] MEDS ORDERED: IPRATROPIUM BROMIDE 0.5 MG/2.5 ML NEB SOLUTION NEB ONE (05:45)
[2016-09-17] MEDS ORDERED: SODIUM CHLORIDE 0.9% 1,000 ML IV ONE (05:45)
[2016-09-17] MEDS ORDERED: LEVALBUTEROL HCL 1.25 MG/0.5 ML NEB SOLUTION NEB ONE (05:45)
[2016-09-17 06:03] LABS: GLUCOSE,POINT OF CARE 202 MG/DL (70-110)
[2016-09-17 06:17] LABS: BASOPHILS # (AUTO) 0.06 K/uL (0.00-0.20); BASOPHILS % (AUTO) 1.2 % (0.0-2.0); EOSINOPHILS # (AUTO) 0.09 K/uL (0.00-0.70); EOSINOPHILS % (AUTO) 1.89 % (1.0-6.0); HEMATOCRIT 41.7 % (36-46); HEMOGLOBIN 14.4 g/dL (12.0-16.0); LYMPHOCYTES # (AUTO) 2.1 K/uL (1.0-4.8); LYMPHOCYTES % (AUTO) 45.5 % (22.0-44.0); MEAN CORPUSCULAR HEMOGLOBIN 31.5 pg (26.0-34.0); MEAN CORPUSCULAR HGB CONC 34.5 G/dL (31.0-37.0); MEAN CORPUSCULAR VOLUME 91 fL (80-100); MONOCYTES # (AUTO) 0.4 K/uL (0.1-1.0); NEUTROPHILS % (AUTO) 42.4 % (40.0-70.0); PLATELET COUNT (AUTO) 234 K/uL (150-450); RED BLOOD CELL COUNT(AUTO) 4.56 MIL/uL (4.00-5.20); RED CELL DISTRIBUTION WIDTH 13.6 % (11.5-14.5); WHITE BLOOD COUNT (AUTO) 4.7 K/uL (4.5-11.0)
[2016-09-17 06:54] LABS: ANION GAP 7 mmol/L (8-16); CALCIUM, TOTAL 9.2 mg/dL (8.8-10.5); CARBON DIOXIDE 29 mmol/L (22-29); CHLORIDE 100 mmol/L (98-107); CREATININE 0.86 mg/dL (0.60-1.30); GLOMERULAR FILTR. RATE CALC > 60 mL/min (>60); POTASSIUM 4.2 mmol/L (3.5-5.1); SODIUM SERUM 136 mmol/L (136-145); UREA NITROGEN, BLOOD 12 mg/dL (7-18)
[2016-09-17 06:59] LABS: ALANINE AMINOTRANSFERASE 29 U/L (12-78); ALBUMIN 3.4 g/dL (3.4-5.0); ASPARTATE AMINOTRANSFERASE 14 U/L (15-37); BILIRUBIN,TOTAL 0.3 mg/dL (0.1-1.0); TOTAL PROTEIN, SERUM 7.1 g/dL (6.4-8.2)
[2016-09-17] MEDS ORDERED: ALBUTEROL SULFATE 2.5 MG/0.5 ML NEB SOLUTION NEB ONE (07:30)
[2016-09-17] MEDS ORDERED: 0.9% SODIUM CHLORIDE 5 ML NEB SOLUTION NEB ONE (07:35)
[2016-09-17 07:44] VITALS: BP 142/78
== END 2016-09-17 07:55 | disposition home or self-care (01) ==
LOC: EMS 01:49
DX: J44.9 Chronic obstructive pulmonary disease, unspecified (principal); J45.909 Unspecified asthma, uncomplicated; I10 Essential (primary) hypertension; E11.9 Type 2 diabetes mellitus without complications; K21.9 Gastro-esophageal reflux disease without esophagitis; F17.210 Nicotine dependence, cigarettes, uncomplicated; Z88.0 Allergy status to penicillin; Z88.1 Allergy status to other antibiotic agents
CPT/HCPCS: 36415; 71010; 80053; 82962; 85025; 94640; 96361; 96374; 99285; J1885; J7030; J7613

== ENCOUNTER 2016-10-02 09:32 | Emergency (ER) | payer OTHER ==
[~2016-10-02] VITALS: Ht 162.6 cm; Wt 68.2 kg
[2016-10-02 09:42] LABS: GLUCOSE,POINT OF CARE 186 MG/DL (70-110)
[2016-10-02] MEDS ORDERED: ALBUTEROL SULFATE 5 MG/ML 20 ML NEB SOLN [BULK] NEB ONE (10:00)
[2016-10-02] MEDS ORDERED: PredniSONE 20 MG TABLET PO ONE (10:00)
[2016-10-02] MEDS ORDERED: IPRATROPIUM BROMIDE 0.5 MG/2.5 ML NEB SOLUTION NEB ONE (10:00)
[2016-10-02 12:36] VITALS: BP 101/70
== END 2016-10-02 12:47 | disposition home or self-care (01) ==
LOC: EMS 09:33
DX: J45.901 Unspecified asthma with (acute) exacerbation (principal); J44.1 Chronic obstructive pulmonary disease with (acute) exacerbation; E11.9 Type 2 diabetes mellitus without complications; I10 Essential (primary) hypertension; F17.210 Nicotine dependence, cigarettes, uncomplicated; K21.9 Gastro-esophageal reflux disease without esophagitis; Z88.0 Allergy status to penicillin; Z88.1 Allergy status to other antibiotic agents
CPT/HCPCS: 82962; 94644; 99285; 99406; J7512

== ENCOUNTER 2016-10-10 10:25 | Emergency (ER) | payer OTHER ==
[~2016-10-10] VITALS: Ht 162.6 cm; Wt 68.2 kg
[2016-10-10 10:57] LABS: GLUCOSE,POINT OF CARE 208 MG/DL (70-110)
[2016-10-10] MEDS ORDERED: IPRATROPIUM BROMIDE 0.5 MG/2.5 ML NEB SOLUTION NEB ONE (11:15)
[2016-10-10] MEDS ORDERED: ALBUTEROL SULFATE 5 MG/ML 20 ML NEB SOLN [BULK] NEB ONE (11:15)
[2016-10-10] MEDS ORDERED: 0.9% SODIUM CHLORIDE 5 ML NEB SOLUTION NEB ONE (11:24)
[2016-10-10 13:32] VITALS: BP 141/84
== END 2016-10-10 13:41 | disposition home or self-care (01) ==
LOC: EMS 10:27
DX: J44.1 Chronic obstructive pulmonary disease with (acute) exacerbation (principal); F17.210 Nicotine dependence, cigarettes, uncomplicated; E11.9 Type 2 diabetes mellitus without complications; I10 Essential (primary) hypertension; J45.901 Unspecified asthma with (acute) exacerbation; K21.9 Gastro-esophageal reflux disease without esophagitis; Z88.0 Allergy status to penicillin; Z88.1 Allergy status to other antibiotic agents
CPT/HCPCS: 82962; 94644; 99285; 99406; J7611

== ENCOUNTER 2016-11-04 21:48 | Emergency (ER) | payer OTHER ==
[~2016-11-04] VITALS: Ht 162.6 cm; Wt 68.0 kg
[2016-11-04 22:13] LABS: GLUCOSE,POINT OF CARE 141 MG/DL (70-110)
[2016-11-04] MEDS ORDERED: ALBUTEROL SULFATE 2.5 MG/0.5 ML NEB SOLUTION NEB ONE (22:30)
[2016-11-04] MEDS ORDERED: IPRATROPIUM BROMIDE 0.5 MG/2.5 ML NEB SOLUTION NEB ONE (22:30)
[2016-11-04] MEDS ORDERED: 0.9% SODIUM CHLORIDE 5 ML NEB SOLUTION NEB ONE (22:40)
[2016-11-04] MEDS ORDERED: DiphenhydrAMINE HCL 50 MG CAPSULE PO ONE (22:45)
[2016-11-04 22:49] VITALS: BP 148/99
== END 2016-11-04 23:21 | disposition home or self-care (01) ==
LOC: EMS 21:51
DX: L85.3 Xerosis cutis (principal); J44.9 Chronic obstructive pulmonary disease, unspecified; J45.909 Unspecified asthma, uncomplicated; E11.9 Type 2 diabetes mellitus without complications; K21.9 Gastro-esophageal reflux disease without esophagitis; I10 Essential (primary) hypertension; F17.210 Nicotine dependence, cigarettes, uncomplicated; Z88.0 Allergy status to penicillin; Z88.1 Allergy status to other antibiotic agents
CPT/HCPCS: 82962; 94640; 99283; 99406; J7613

== ENCOUNTER 2016-11-10 12:33 | Emergency (ER) | payer OTHER ==
[~2016-11-10] VITALS: Ht 162.6 cm; Wt 76.0 kg
[2016-11-10 12:57] LABS: GLUCOSE,POINT OF CARE 210 MG/DL (70-110)
[2016-11-10] MEDS ORDERED: IPRATROPIUM BROMIDE 0.5 MG/2.5 ML NEB SOLUTION NEB ONE (14:45)
[2016-11-10] MEDS ORDERED: ALBUTEROL SULFATE 5 MG/ML 20 ML NEB SOLN [BULK] NEB ONE (14:45)
[2016-11-10] MEDS ORDERED: 0.9% SODIUM CHLORIDE 5 ML NEB SOLUTION NEB ONE (15:08)
[2016-11-10] MEDS ORDERED: PredniSONE 20 MG TABLET PO ONE (16:00)
[2016-11-10 16:10] VITALS: BP 148/89
== END 2016-11-10 16:11 | disposition home or self-care (01) ==
LOC: EMS 12:34
DX: J44.1 Chronic obstructive pulmonary disease with (acute) exacerbation (principal); E11.9 Type 2 diabetes mellitus without complications; K21.9 Gastro-esophageal reflux disease without esophagitis; I10 Essential (primary) hypertension; F17.210 Nicotine dependence, cigarettes, uncomplicated; Z88.0 Allergy status to penicillin; Z88.1 Allergy status to other antibiotic agents
CPT/HCPCS: 71010; 82962; 94640; 99283; 99406; J7512; J7611

== ENCOUNTER 2016-11-18 08:51 | Emergency (ER) | payer OTHER ==
[~2016-11-18] VITALS: Ht 162.6 cm; Wt 68.0 kg
[~2016-11-18 08:51] MED LIST changes: -PRAV40 PO; +PRAV40TA4 PO
[2016-11-18 09:08] LABS: GLUCOSE,POINT OF CARE 212 MG/DL (70-110)
[2016-11-18] MEDS ORDERED: ALBUTEROL SULFATE 2.5 MG/0.5 ML NEB SOLUTION NEB ONE (10:30)
[2016-11-18] MEDS ORDERED: IPRATROPIUM BROMIDE 0.5 MG/2.5 ML NEB SOLUTION NEB ONE (10:30)
[2016-11-18] MEDS ORDERED: IBUPROFEN 600 MG TABLET PO ONE (10:30)
[2016-11-18] MEDS ORDERED: 0.9% SODIUM CHLORIDE 5 ML NEB SOLUTION NEB ONE (10:31)
[2016-11-18 11:26] VITALS: BP 145/91
== END 2016-11-18 11:30 | disposition home or self-care (01) ==
LOC: EMS 08:53
DX: L02.412 Cutaneous abscess of left axilla (principal); J45.909 Unspecified asthma, uncomplicated; J44.9 Chronic obstructive pulmonary disease, unspecified; E11.9 Type 2 diabetes mellitus without complications; I10 Essential (primary) hypertension; K21.9 Gastro-esophageal reflux disease without esophagitis; F17.210 Nicotine dependence, cigarettes, uncomplicated; Z88.0 Allergy status to penicillin; Z88.1 Allergy status to other antibiotic agents
CPT/HCPCS: 82962; 94640; 99283; J7613

== ENCOUNTER 2016-11-28 21:30 | Emergency (ER) | payer OTHER ==
[~2016-11-28] VITALS: Ht 162.6 cm; Wt 68.0 kg
[2016-11-28 21:48] LABS: GLUCOSE,POINT OF CARE 366 MG/DL (70-110)
[2016-11-28] MEDS ORDERED: IPRATROPIUM BROMIDE 0.5 MG/2.5 ML NEB SOLUTION NEB ONE ×2 (22:15→23:45)
[2016-11-28] MEDS ORDERED: PredniSONE 20 MG TABLET PO ONE (22:15)
[2016-11-28] MEDS ORDERED: ALBUTEROL SULFATE 5 MG/ML 20 ML NEB SOLN [BULK] NEB ONE ×2 (22:15→23:45)
[2016-11-28 22:39] LABS: BASOPHILS % (AUTO) 0.6 % (0.0-2.0); HEMATOCRIT 45.1 % (36-46); HEMOGLOBIN 15.3 g/dL (12.0-16.0); LYMPHOCYTES # (AUTO) 2.1 K/uL (1.0-4.8); MEAN CORPUSCULAR HEMOGLOBIN 32.2 pg (26.0-34.0); MEAN CORPUSCULAR VOLUME 95 fL (80-100); MONOCYTES # (AUTO) 0.4 K/uL (0.1-1.0); MONOCYTES % (AUTO) 7.6 % (2.0-9.0); NEUTROPHILS % (AUTO) 51.8 % (40.0-70.0); PLATELET COUNT (AUTO) 244 K/uL (150-450); RED BLOOD CELL COUNT(AUTO) 4.77 MIL/uL (4.00-5.20); RED CELL DISTRIBUTION WIDTH 13.7 % (11.5-14.5); WHITE BLOOD COUNT (AUTO) 5.7 K/uL (4.5-11.0)
[2016-11-28] MEDS ORDERED: 0.9% SODIUM CHLORIDE 5 ML NEB SOLUTION NEB ONE ×2 (22:44→23:49)
[2016-11-28 22:47] LABS: ANION GAP 7 mmol/L (8-16); CALCIUM, TOTAL 9.6 mg/dL (8.8-10.5); CARBON DIOXIDE 31 mmol/L (22-29); CHLORIDE 101 mmol/L (98-107); CREATININE 1.03 mg/dL (0.60-1.30); GLOMERULAR FILTR. RATE CALC > 60 mL/min (>60); POTASSIUM 4.1 mmol/L (3.5-5.1); SODIUM SERUM 139 mmol/L (136-145); UREA NITROGEN, BLOOD 8 mg/dL (7-18)
[2016-11-28 22:53] LABS: ALANINE AMINOTRANSFERASE 22 U/L (12-78); ALBUMIN 3.9 g/dL (3.4-5.0); ASPARTATE AMINOTRANSFERASE 14 U/L (15-37); BILIRUBIN,TOTAL 0.3 mg/dL (0.1-1.0); TOTAL PROTEIN, SERUM 8.3 g/dL (6.4-8.2)
[2016-11-28 23:02] LABS: B-TYPE NATRIURETIC PEPTIDE 8 pg/mL (0-100)
[2016-11-28] MEDS ORDERED: INSULIN REGULAR, HUMAN 100 UNITS/ML IVP ONE (23:30)
[2016-11-28 23:53] LABS: GLUCOSE COMMENT 1 Doctor Notified; GLUCOSE,POINT OF CARE 242 MG/DL (70-110)
[2016-11-29 01:00] VITALS: BP 125/71
== END 2016-11-29 01:09 | disposition home or self-care (01) ==
LOC: EMS 21:33
DX: J44.9 Chronic obstructive pulmonary disease, unspecified (principal); K21.9 Gastro-esophageal reflux disease without esophagitis; I10 Essential (primary) hypertension; E11.9 Type 2 diabetes mellitus without complications; Z88.0 Allergy status to penicillin
CPT/HCPCS: 36415; 71010; 80053; 82962; 83880; 84484; 85025; 93005; 94640; 99285; J7512; J7611; J1815

== ENCOUNTER 2016-11-30 20:33 | Emergency (ER) | payer OTHER ==
[~2016-11-30] VITALS: Ht 162.6 cm; Wt 68.2 kg
[2016-11-30] MEDS ORDERED: IPRATROPIUM BROMIDE 0.5 MG/2.5 ML NEB SOLUTION NEB ONE (20:45)
[2016-11-30] MEDS ORDERED: ALBUTEROL SULFATE 5 MG/ML 20 ML NEB SOLN [BULK] NEB ONE (20:45)
[2016-11-30] MEDS ORDERED: 0.9% SODIUM CHLORIDE 15 ML NEB SOLUTION NEB ONE (21:08)
[2016-11-30 21:27] LABS: BASOPHILS % (AUTO) 0.3 % (0.0-2.0); EOSINOPHILS % (AUTO) 2.9 % (1.0-6.0); HEMATOCRIT 41.9 % (36-46); HEMOGLOBIN 14.4 g/dL (12.0-16.0); LYMPHOCYTES # (AUTO) 2.4 K/uL (1.0-4.8); LYMPHOCYTES % (AUTO) 41.4 % (22.0-44.0); MEAN CORPUSCULAR HEMOGLOBIN 32.4 pg (26.0-34.0); MEAN CORPUSCULAR HGB CONC 34.3 G/dL (31.0-37.0); MEAN CORPUSCULAR VOLUME 95 fL (80-100); MONOCYTES # (AUTO) 0.4 K/uL (0.1-1.0); NEUTROPHILS # (AUTO) 2.9 K/uL (1.8-7.7); NEUTROPHILS % (AUTO) 49.4 % (40.0-70.0); PLATELET COUNT (AUTO) 252 K/uL (150-450); RED BLOOD CELL COUNT(AUTO) 4.43 MIL/uL (4.00-5.20); WHITE BLOOD COUNT (AUTO) 5.8 K/uL (4.5-11.0)
[2016-11-30] MEDS ORDERED: ACETAMINOPHEN/CODEINE 300-30 MG TABLET PO ONE (21:30)
[2016-11-30] MEDS ORDERED: INSULIN REGULAR, HUMAN 100 UNITS/ML SQ ONE (21:30)
[2016-11-30] MEDS ORDERED: CEPHALEXIN MONOHYDRATE 500 MG CAPSULE PO ONE (21:30)
[2016-11-30] MEDS ORDERED: PredniSONE 20 MG TABLET PO ONE (21:30)
[2016-11-30 21:56] LABS: ANION GAP 10 mmol/L (8-16); CALCIUM, TOTAL 9.5 mg/dL (8.8-10.5); CARBON DIOXIDE 29 mmol/L (22-29); CHLORIDE 98 mmol/L (98-107); CREATININE 1.12 mg/dL (0.60-1.30); GLOMERULAR FILTR. RATE CALC > 60 mL/min (>60); POTASSIUM 4.2 mmol/L (3.5-5.1); SODIUM SERUM 137 mmol/L (136-145); UREA NITROGEN, BLOOD 14 mg/dL (7-18)
[2016-11-30 22:01] LABS: ALANINE AMINOTRANSFERASE 19 U/L (12-78); ALBUMIN 3.4 g/dL (3.4-5.0); ASPARTATE AMINOTRANSFERASE 7 U/L (15-37); BILIRUBIN,TOTAL 0.2 mg/dL (0.1-1.0); TOTAL PROTEIN, SERUM 7.5 g/dL (6.4-8.2)
[2016-12-01] VITALS: BP 133/81
[2016-12-01 00:43] LABS: GLUCOSE,POINT OF CARE 336 MG/DL (70-110)
[2016-12-01 09:59] LABS: GLUCOSE COMMENT 1 Doctor Notified; GLUCOSE,POINT OF CARE 333 MG/DL (70-110)
[2016-12-01 09:59] LABS: GLUCOSE COMMENT 1 Doctor Notified; GLUCOSE,POINT OF CARE 340 MG/DL (70-110)
== END 2016-12-01 00:27 | disposition home or self-care (01) ==
LOC: EMS 20:35
DX: J45.901 Unspecified asthma with (acute) exacerbation (principal); J44.1 Chronic obstructive pulmonary disease with (acute) exacerbation; E11.65 Type 2 diabetes mellitus with hyperglycemia; K21.9 Gastro-esophageal reflux disease without esophagitis; I10 Essential (primary) hypertension; F17.210 Nicotine dependence, cigarettes, uncomplicated; Z59.0 Homelessness; Z88.0 Allergy status to penicillin; Z88.1 Allergy status to other antibiotic agents
CPT/HCPCS: 36415; 71010; 80053; 82962; 84484; 85025; 94644; 96372; 99285; 99406; J1815; J7512; J7611

== ENCOUNTER 2016-12-10 03:43 | Emergency (ER) | payer OTHER ==
[~2016-12-10] VITALS: Ht 162.6 cm; Wt 68.0 kg
[2016-12-10 03:58] LABS: GLUCOSE,POINT OF CARE 251 MG/DL (70-110)
[2016-12-10] MEDS ORDERED: ALBUTEROL SULFATE 5 MG/ML 20 ML NEB SOLN [BULK] NEB ONE (04:30)
[2016-12-10] MEDS ORDERED: PredniSONE 20 MG TABLET PO ONE (04:30)
[2016-12-10] MEDS ORDERED: IPRATROPIUM BROMIDE 0.5 MG/2.5 ML NEB SOLUTION NEB ONE (04:45)
[2016-12-10 04:47] LABS: BASOPHILS # (AUTO) 0.05 K/uL (0.00-0.20); BASOPHILS % (AUTO) 0.8 % (0.0-2.0); EOSINOPHILS # (AUTO) 0.18 K/uL (0.00-0.70); HEMATOCRIT 44.8 % (36-46); HEMOGLOBIN 15.4 g/dL (12.0-16.0); LYMPHOCYTES # (AUTO) 2.4 K/uL (1.0-4.8); LYMPHOCYTES % (AUTO) 42.9 % (22.0-44.0); MEAN CORPUSCULAR HGB CONC 34.4 G/dL (31.0-37.0); MEAN CORPUSCULAR VOLUME 93 fL (80-100); MONOCYTES # (AUTO) 0.3 K/uL (0.1-1.0); MONOCYTES % (AUTO) 5.5 % (2.0-9.0); NEUTROPHILS # (AUTO) 2.7 K/uL (1.8-7.7); NEUTROPHILS % (AUTO) 47.5 % (40.0-70.0); PLATELET COUNT (AUTO) 230 K/uL (150-450); RED BLOOD CELL COUNT(AUTO) 4.81 MIL/uL (4.00-5.20); RED CELL DISTRIBUTION WIDTH 13.5 % (11.5-14.5); WHITE BLOOD COUNT (AUTO) 5.7 K/uL (4.5-11.0)
[2016-12-10] MEDS ORDERED: 0.9% SODIUM CHLORIDE 5 ML NEB SOLUTION NEB ONE (04:53)
[2016-12-10 04:55] LABS: ANION GAP 9 mmol/L (8-16); CALCIUM, TOTAL 9.3 mg/dL (8.8-10.5); CARBON DIOXIDE 29 mmol/L (22-29); CHLORIDE 95 mmol/L (98-107); GLOMERULAR FILTR. RATE CALC > 60 mL/min (>60); POTASSIUM 3.7 mmol/L (3.5-5.1); SODIUM SERUM 133 mmol/L (136-145); UREA NITROGEN, BLOOD 7 mg/dL (7-18)
[2016-12-10 05:01] LABS: ALANINE AMINOTRANSFERASE 23 U/L (12-78); ALBUMIN 3.8 g/dL (3.4-5.0); ASPARTATE AMINOTRANSFERASE 18 U/L (15-37); BILIRUBIN,TOTAL 0.4 mg/dL (0.1-1.0)
[2016-12-10 05:46] VITALS: BP 139/68
== END 2016-12-10 06:06 | disposition home or self-care (01) ==
LOC: EMS 03:45
DX: J44.9 Chronic obstructive pulmonary disease, unspecified (principal); M54.6 Pain in thoracic spine; J45.909 Unspecified asthma, uncomplicated; E11.9 Type 2 diabetes mellitus without complications; K21.9 Gastro-esophageal reflux disease without esophagitis; I10 Essential (primary) hypertension; F17.210 Nicotine dependence, cigarettes, uncomplicated; Z88.0 Allergy status to penicillin; Z88.1 Allergy status to other antibiotic agents
CPT/HCPCS: 36415; 71010; 80053; 82962; 84484; 85025; 85379; 94640; 99285; 99406; J7512; J7611

== ENCOUNTER 2016-12-31 23:37 | Emergency (ER) | payer OTHER ==
[~2016-12-31] VITALS: Ht 162.6 cm; Wt 63.5 kg
[2017-01-01] MEDS ORDERED: ALBUTEROL SULFATE 5 MG/ML 20 ML NEB SOLN [BULK] NEB ONE ×2 (01:00→02:15)
[2017-01-01] MEDS ORDERED: IPRATROPIUM BROMIDE 0.5 MG/2.5 ML NEB SOLUTION NEB ONE ×2 (01:00→02:15)
[2017-01-01] MEDS ORDERED: PredniSONE 20 MG TABLET PO ONE (01:00)
[2017-01-01] MEDS ORDERED: 0.9% SODIUM CHLORIDE 5 ML NEB SOLUTION NEB ONE ×2 (01:10→02:17)
[2017-01-01] MEDS ORDERED: INSULIN REGULAR, HUMAN 100 UNITS/ML SQ ONE ×2 (04:45→06:00)
[2017-01-01 04:47] LABS: GLUCOSE COMMENT 1 Doctor Notified; GLUCOSE COMMENT 2 Received Meds; GLUCOSE,POINT OF CARE > 600 MG/DL (70-110)
[2017-01-01 05:14] LABS: CALCIUM, TOTAL 9.2 mg/dL (8.8-10.5); CREATININE 1.21 mg/dL (0.60-1.30)
[2017-01-01] MEDS ORDERED: ACETAMINOPHEN 325 MG TABLET PO ONE (05:30)
[2017-01-01 05:58] LABS: GLUCOSE COMMENT 1 Doctor Notified; GLUCOSE COMMENT 2 Received Meds; GLUCOSE,POINT OF CARE > 600 MG/DL (70-110)
[2017-01-01] MEDS ORDERED: SODIUM CHLORIDE 0.9% 1,000 ML IV ONE ×2 (06:15→07:30)
[2017-01-01 07:32] LABS: GLUCOSE COMMENT 1 Doctor Notified; GLUCOSE,POINT OF CARE 471 MG/DL (70-110)
[2017-01-01 08:36] VITALS: BP 156/87
[2017-01-01 08:52] LABS: GLUCOSE,POINT OF CARE 358 MG/DL (70-110)
== END 2017-01-01 09:28 | disposition home or self-care (01) ==
LOC: EMS 23:38
DX: J44.1 Chronic obstructive pulmonary disease with (acute) exacerbation (principal); S00.31XA Abrasion of nose, initial encounter; E11.9 Type 2 diabetes mellitus without complications; I10 Essential (primary) hypertension; F17.210 Nicotine dependence, cigarettes, uncomplicated; K21.9 Gastro-esophageal reflux disease without esophagitis; Z79.4 Long term (current) use of insulin; Z88.0 Allergy status to penicillin; X58.XXXA Exposure to other specified factors, initial encounter; Y93.89 Activity, other specified; Y92.89 Other specified places as the place of occurrence of the external cause; Y99.8 Other external cause status
CPT/HCPCS: 36415; 80048; 82948; 82962; 94644; 94645; 96360; 96361; 96372; 99285; J1815; J7030; J7512; J7611

== ENCOUNTER 2017-01-07 11:12 | Emergency (ER) | payer OTHER ==
[~2017-01-07] VITALS: Ht 162.6 cm; Wt 63.6 kg
[2017-01-07 11:22] LABS: GLUCOSE,POINT OF CARE 282 MG/DL (70-110)
[2017-01-07] MEDS ORDERED: IPRATROPIUM BROMIDE 0.5 MG/2.5 ML NEB SOLUTION NEB ONE ×2 (11:30→13:00)
[2017-01-07] MEDS ORDERED: ALBUTEROL SULFATE 5 MG/ML 20 ML NEB SOLN [BULK] NEB ONE ×3 (11:30→15:00)
[2017-01-07] MEDS ORDERED: 0.9% SODIUM CHLORIDE 15 ML NEB SOLUTION NEB ONE ×3 (11:37→15:24)
[2017-01-07] MEDS ORDERED: PredniSONE 20 MG TABLET PO ONE (15:00)
[2017-01-07] MEDS ORDERED: AZITHROMYCIN 250 MG TABLET PO ONE (15:00)
[2017-01-07 17:24] VITALS: BP 136/84
== END 2017-01-07 17:25 | disposition home or self-care (01) ==
LOC: EMS 11:14
DX: J44.1 Chronic obstructive pulmonary disease with (acute) exacerbation (principal); J45.901 Unspecified asthma with (acute) exacerbation; E11.9 Type 2 diabetes mellitus without complications; K21.9 Gastro-esophageal reflux disease without esophagitis; F17.210 Nicotine dependence, cigarettes, uncomplicated; I10 Essential (primary) hypertension; Z88.1 Allergy status to other antibiotic agents; Z88.0 Allergy status to penicillin
CPT/HCPCS: 82962; 94644; 94645; 99285; 99406; J7512; J7611; 94640

== ENCOUNTER 2017-01-11 13:03 | Emergency (ER) | payer OTHER ==
[~2017-01-11] VITALS: Ht 162.6 cm; Wt 54.0 kg
[2017-01-11 13:20] LABS: GLUCOSE,POINT OF CARE 407 MG/DL (70-110)
[2017-01-11 14:00] LABS: BASOPHILS % (AUTO) 0.5 % (0.0-2.0); EOSINOPHILS % (AUTO) 4.1 % (1.0-6.0); HEMATOCRIT 47.9 % (36-46); HEMOGLOBIN 16.4 g/dL (12.0-16.0); LYMPHOCYTES # (AUTO) 1.8 K/uL (1.0-4.8); MEAN CORPUSCULAR HEMOGLOBIN 31.9 pg (26.0-34.0); MEAN CORPUSCULAR HGB CONC 34.3 G/dL (31.0-37.0); MEAN CORPUSCULAR VOLUME 93 fL (80-100); MONOCYTES # (AUTO) 0.4 K/uL (0.1-1.0); MONOCYTES % (AUTO) 9.8 % (2.0-9.0); NEUTROPHILS # (AUTO) 1.9 K/uL (1.8-7.7); NEUTROPHILS % (AUTO) 43.6 % (40.0-70.0); PLATELET COUNT (AUTO) 249 K/uL (150-450); RED BLOOD CELL COUNT(AUTO) 5.16 MIL/uL (4.00-5.20)
[2017-01-11] MEDS ORDERED: ALBUTEROL SULFATE 5 MG/ML 20 ML NEB SOLN [BULK] NEB ONE ×2 (14:30→16:00)
[2017-01-11] MEDS ORDERED: SODIUM CHLORIDE 0.9% 1,000 ML IV ONE (14:30)
[2017-01-11] MEDS ORDERED: IPRATROPIUM BROMIDE 0.5 MG/2.5 ML NEB SOLUTION NEB ONE ×2 (14:30→16:00)
[2017-01-11 14:37] LABS: ALANINE AMINOTRANSFERASE 22 U/L (12-78); ALBUMIN 3.8 g/dL (3.4-5.0); ALKALINE PHOSPHATASE 164 U/L (46-116); ANION GAP 8 mmol/L (8-16); ASPARTATE AMINOTRANSFERASE 13 U/L (15-37); BILIRUBIN,TOTAL 0.3 mg/dL (0.1-1.0); CALCIUM, TOTAL 9.8 mg/dL (8.8-10.5); CARBON DIOXIDE 29 mmol/L (22-29); CHLORIDE 98 mmol/L (98-107); CREATININE 1.04 mg/dL (0.60-1.30); GLOMERULAR FILTR. RATE CALC > 60 mL/min (>60); LIPASE 275 U/L (73-393); POTASSIUM 4.1 mmol/L (3.5-5.1); SODIUM SERUM 135 mmol/L (136-145); UREA NITROGEN, BLOOD 14 mg/dL (7-18)
[2017-01-11 14:38] LABS: GLUCOSE,RANDOM 458 mg/dL (70-110)
[2017-01-11] MEDS ORDERED: 0.9% SODIUM CHLORIDE 5 ML NEB SOLUTION NEB ONE ×2 (14:45→16:23)
[2017-01-11] MEDS ORDERED: INSULIN REGULAR, HUMAN 100 UNITS/ML IVP ONE ×2 (15:15→16:00)
[2017-01-11 15:59] LABS: GLUCOSE,POINT OF CARE 303 MG/DL (70-110)
[2017-01-11 16:54] LABS: GLUCOSE,POINT OF CARE 291 MG/DL (70-110)
[2017-01-11] MEDS ORDERED: KETOROLAC TROMETHAMINE 30 MG/ML VIAL IM ONE (17:30)
[2017-01-11 17:34] VITALS: BP 120/82
[2017-01-11] MEDS ORDERED: KETOROLAC TROMETHAMINE 30 MG/ML VIAL IVP ONE (17:45)
== END 2017-01-11 17:56 | disposition home or self-care (01) ==
LOC: EMS 13:04
DX: J44.9 Chronic obstructive pulmonary disease, unspecified (principal); J45.909 Unspecified asthma, uncomplicated; E11.9 Type 2 diabetes mellitus without complications; K21.9 Gastro-esophageal reflux disease without esophagitis; I10 Essential (primary) hypertension; F17.210 Nicotine dependence, cigarettes, uncomplicated; Z88.0 Allergy status to penicillin; Z88.1 Allergy status to other antibiotic agents
CPT/HCPCS: 36415; 71010; 80053; 82948; 82962; 83690; 83880; 84484; 85025; 93005; 94644; 96361; 96374; 96375; 96376; 99291; J1815; J1885; J7030; J7611

== ENCOUNTER 2017-01-14 22:57 | Emergency (ER) | payer OTHER ==
[~2017-01-14] VITALS: Ht 162.6 cm; Wt 68.0 kg
[2017-01-14 23:13] LABS: GLUCOSE,POINT OF CARE 276 MG/DL (70-110)
[2017-01-15] MEDS ORDERED: LORazepam 2 MG/ML VIAL IM ONE (01:00)
[2017-01-15] MEDS ORDERED: DEXAMETHASONE SOD PHOS 4 MG/ML 5 ML VIAL IM ONE (01:00)
[2017-01-15] MEDS ORDERED: MORPHINE SULFATE 4 MG/ML SYRINGE IM ONE (01:00)
[2017-01-15 05:27] VITALS: BP 127/65
== END 2017-01-15 05:29 | disposition home or self-care (01) ==
LOC: EMS 23:00
DX: M54.41 Lumbago with sciatica, right side (principal); J45.909 Unspecified asthma, uncomplicated; J44.9 Chronic obstructive pulmonary disease, unspecified; E11.9 Type 2 diabetes mellitus without complications; K21.9 Gastro-esophageal reflux disease without esophagitis; I10 Essential (primary) hypertension; F17.210 Nicotine dependence, cigarettes, uncomplicated; Z88.0 Allergy status to penicillin; Z88.1 Allergy status to other antibiotic agents
CPT/HCPCS: 73502; 82962; 96372; 99284; J1100; J2060; J2270

== ENCOUNTER 2017-01-19 10:26 | Inpatient (IN) | payer OTHER ==
[~2017-01-19] VITALS: Ht 162.6 cm; Wt 60.6 kg
[2017-01-19 10:43] LABS: GLUCOSE,POINT OF CARE 256 MG/DL (70-110)
[2017-01-19] MEDS ORDERED: IPRATROPIUM BROMIDE 0.5 MG/2.5 ML NEB SOLUTION NEB ONE ×2 (10:45→12:00)
[2017-01-19] MEDS ORDERED: PredniSONE 20 MG TABLET PO ONE (10:45)
[2017-01-19] MEDS ORDERED: ALBUTEROL SULFATE 5 MG/ML 20 ML NEB SOLN [BULK] NEB ONE ×2 (10:45→12:00)
[2017-01-19] MEDS ORDERED: ACETAMINOPHEN 500 MG TABLET PO ONE (10:45)
[2017-01-19] MEDS ORDERED: 0.9% SODIUM CHLORIDE 5 ML NEB SOLUTION NEB ONE ×3 (10:48→12:01)
[2017-01-19 13:44] LABS: BASOPHILS # (AUTO) 0.01 K/uL (0.00-0.20); BASOPHILS % (AUTO) 0.1 % (0.0-2.0); EOSINOPHILS # (AUTO) 0.03 K/uL (0.00-0.70); EOSINOPHILS % (AUTO) 0.33 % (1.0-6.0); HEMATOCRIT 44.8 % (36-46); HEMOGLOBIN 14.9 g/dL (12.0-16.0); LYMPHOCYTES # (AUTO) 1.9 K/uL (1.0-4.8); LYMPHOCYTES % (AUTO) 19.1 % (22.0-44.0); MEAN CORPUSCULAR HEMOGLOBIN 31.2 pg (26.0-34.0); MEAN CORPUSCULAR HGB CONC 33.2 G/dL (31.0-37.0); MEAN CORPUSCULAR VOLUME 94 fL (80-100); MONOCYTES % (AUTO) 0.3 % (2.0-9.0); NEUTROPHILS # (AUTO) 8.1 K/uL (1.8-7.7); NEUTROPHILS % (AUTO) 80.1 % (40.0-70.0); PLATELET COUNT (AUTO) 201 K/uL (150-450); RED BLOOD CELL COUNT(AUTO) 4.76 MIL/uL (4.00-5.20); RED CELL DISTRIBUTION WIDTH 12.9 % (11.5-14.5); WHITE BLOOD COUNT (AUTO) 10.1 K/uL (4.5-11.0)
[2017-01-19 14:08] LABS: CREATININE 1.17 mg/dL (0.60-1.30); POTASSIUM 3.8 mmol/L (3.5-5.1)
[2017-01-19] MEDS ORDERED: ACETAMINOPHEN 325 MG TABLET PO PRN ×2 (14:30→16:45)
[2017-01-19] MEDS ORDERED: SODIUM CHLORIDE 0.9% 1,000 ML IV ONE ×2 (14:30)
[2017-01-19] MEDS ORDERED: INSULIN REGULAR, HUMAN 100 UNITS/ML IVP ONE (14:30)
[2017-01-19] MEDS ORDERED: INSULIN REGULAR, HUMAN 100 UNITS/ML SQ PRN (14:30)
[2017-01-19] MEDS ORDERED: ONDANSETRON HCL 4 MG/2 ML VIAL IVP PRN ×2 (14:30→16:45)
[2017-01-19] MEDS ORDERED: DEXTROSE 50%-WATER 25 GM/50 ML SYRINGE IVP PRN ×2 (14:30→19:00)
[2017-01-19 14:37] LABS: GLUCOSE COMMENT 1 Repeated; GLUCOSE,POINT OF CARE > 600 MG/DL (70-110)
[2017-01-19] MEDS ORDERED: ALBUTEROL SULFATE 2.5 MG/0.5 ML NEB SOLUTION NEB SCH (15:00)
[2017-01-19] MEDS ORDERED: IPRATROPIUM BROMIDE 0.5 MG/2.5 ML NEB SOLUTION NEB SCH (15:00)
[2017-01-19 15:52] LABS: GLUCOSE COMMENT 1 Repeated; GLUCOSE COMMENT 2 Doctor Notified; GLUCOSE,POINT OF CARE 591 MG/DL (70-110)
[2017-01-19 16:25] VITALS: BP 111/75
[2017-01-19] MEDS ORDERED: ZOLPIDEM TARTRATE 5 MG TABLET PO PRN (16:45)
[2017-01-19] MEDS ORDERED: BISACODYL 10 MG RECTAL RECTAL SUPPOSITORY PR PRN (16:45)
[2017-01-19] MEDS ORDERED: ALBUTEROL SULFATE 2.5 MG/0.5 ML NEB SOLUTION NEB PRN (16:45)
[2017-01-19] MEDS ORDERED: MAGNESIUM HYDROXIDE SUSPENSION 30 ML UDCUP PO PRN (16:45)
[2017-01-19] MEDS ORDERED: IPRATROPIUM BROMIDE 0.5 MG/2.5 ML NEB SOLUTION NEB PRN (16:45)
[2017-01-19] MEDS ORDERED: MORPHINE SULFATE 2 MG/ML SYRINGE IVP PRN (16:45)
[2017-01-19] MEDS: MethylPREDNISolone SOD SUCC 125 MG/2 ML VIAL IVP SCH ×2 (17:24→23:54)
[2017-01-19] MEDS: MetFORMIN HCL 500 MG TABLET PO SCH (17:26)
[2017-01-19] MEDS: GlyBURIDE 5 MG TABLET PO SCH (17:26)
[2017-01-19] MEDS ORDERED: INFLUENZA VIRUS VACCINE QVS 2017-18 (3YR+)/PF 60 MCG/0.5 ML SYRINGE IM ONE (18:00)
[2017-01-19 18:58] LABS: GLUCOSE COMMENT 1 Doctor Notified; GLUCOSE COMMENT 2 Received Meds; GLUCOSE,POINT OF CARE 508 MG/DL (70-110)
[2017-01-19] MEDS ORDERED: PNEUMOCOCCAL VACCINE POLYVALENT 0.5 ML VIAL [PPSV23] IM ONE (19:00)
[2017-01-19] MEDS ORDERED: INSULIN ASPART 100 UNITS/ML SQ ONE (19:00)
[2017-01-19] MEDS: IPRATROPIUM BROMIDE 0.5 MG/2.5 ML NEB SOLUTION NEB SCH ×2 (19:05→23:08)
[2017-01-19] MEDS: ALBUTEROL SULFATE 2.5 MG/0.5 ML NEB SOLUTION NEB SCH ×2 (19:05→23:08)
[2017-01-19 19:46] VITALS: BP 160/73
[2017-01-19] MEDS ORDERED: QUEtiapine FUMARATE 100 MG TABLET PO SCH (21:00)
[2017-01-19] MEDS ORDERED: PRAVASTATIN SODIUM 40 MG TABLET PO SCH (21:00)
[2017-01-19] MEDS: DOCUSATE SODIUM 100 MG CAPSULE PO SCH (21:25)
[2017-01-19] MEDS: OxyCODONE HCL/ACETAMINOPHEN 5-325 MG TABLET PO PRN (21:25)
[2017-01-19] MEDS: INSULIN ASPART 100 UNITS/ML SQ PRN (21:26)
[2017-01-19 23:48] LABS: GLUCOSE,POINT OF CARE 333 MG/DL (70-110)
[2017-01-19] MEDS: HEPARIN SODIUM,PORCINE 5,000 UNITS/ML VIAL SQ SCH (23:53)
[2017-01-19 23:59] VITALS: BP 124/65
[2017-01-20] MEDS: ALBUTEROL SULFATE 2.5 MG/0.5 ML NEB SOLUTION NEB SCH ×4 (02:54→15:36)
[2017-01-20] MEDS: IPRATROPIUM BROMIDE 0.5 MG/2.5 ML NEB SOLUTION NEB SCH ×4 (02:54→15:36)
[2017-01-20 03:30] VITALS: BP 126/68
[2017-01-20] MEDS ORDERED: INSULIN ASPART 100 UNITS/ML SQ ONE (05:30)
[2017-01-20] MEDS: MethylPREDNISolone SOD SUCC 125 MG/2 ML VIAL IVP SCH ×2 (05:57→12:00)
[2017-01-20 06:13] LABS: GLUCOSE COMMENT 1 Doctor Notified; GLUCOSE,POINT OF CARE 476 MG/DL (70-110)
[2017-01-20 07:44] VITALS: BP 141/71
[2017-01-20] MEDS: DOCUSATE SODIUM 100 MG CAPSULE PO SCH (08:17)
[2017-01-20] MEDS: HEPARIN SODIUM,PORCINE 5,000 UNITS/ML VIAL SQ SCH (08:17)
[2017-01-20] MEDS: MetFORMIN HCL 500 MG TABLET PO SCH (08:17)
[2017-01-20] MEDS: GlyBURIDE 5 MG TABLET PO SCH (08:17)
[2017-01-20] MEDS ORDERED: [UNRECOGNIZED DRUG - OTHER] PO SCH (09:00)
[2017-01-20] MEDS ORDERED: PANTOPRAZOLE SODIUM 40 MG DR TABLET PO SCH (09:00)
[2017-01-20 11:07] LABS: GLUCOSE COMMENT 1 Doctor Notified; GLUCOSE COMMENT 2 Received Meds; GLUCOSE,POINT OF CARE 467 MG/DL (70-110)
[2017-01-20] MEDS: INSULIN ASPART 100 UNITS/ML SQ PRN (11:34)
[2017-01-20] MEDS: OxyCODONE HCL/ACETAMINOPHEN 5-325 MG TABLET PO PRN (11:38)
[2017-01-20 11:42] VITALS: BP 139/85
[2017-01-20 14:13] LABS: GLUCOSE COMMENT 1 Repeated; GLUCOSE,POINT OF CARE 156 MG/DL (70-110)
[2017-01-20] MEDS ORDERED: PRED5 PO (15:35)
[2017-01-20] MEDS ORDERED: HYDR-305 PO (15:35)
== END 2017-01-20 15:55 | disposition home or self-care (01) | DRG 140 ==
LOC: EMS 10:30 → 6N 14:45
PROVIDERS: ADMIT Hospitalist; ATTEND Hospitalist
DX: J44.1 Chronic obstructive pulmonary disease with (acute) exacerbation (principal); I42.9 Cardiomyopathy, unspecified; E11.42 Type 2 diabetes mellitus with diabetic polyneuropathy; E11.65 Type 2 diabetes mellitus with hyperglycemia; I10 Essential (primary) hypertension; F31.9 Bipolar disorder, unspecified; F41.9 Anxiety disorder, unspecified; K21.9 Gastro-esophageal reflux disease without esophagitis; M54.40 Lumbago with sciatica, unspecified side; F17.210 Nicotine dependence, cigarettes, uncomplicated; I25.10 Atherosclerotic heart disease of native coronary artery without angina pectoris; E78.00 Pure hypercholesterolemia, unspecified; Z90.710 Acquired absence of both cervix and uterus; Z98.891 History of uterine scar from previous surgery; Z82.3 Family history of stroke; Z83.3 Family history of diabetes mellitus; Z88.1 Allergy status to other antibiotic agents; Z79.899 Other long term (current) drug therapy; Z88.0 Allergy status to penicillin; Z91.013 Allergy to seafood; Z79.84 Long term (current) use of oral hypoglycemic drugs; Z95.0 Presence of cardiac pacemaker; Z84.89 Family history of other specified conditions; Z80.9 Family history of malignant neoplasm, unspecified; Z82.5 Family history of asthma and other chronic lower respiratory diseases; Z82.0 Family history of epilepsy and other diseases of the nervous system; Z59.0 Homelessness; Z82.49 Family history of ischemic heart disease and other diseases of the circulatory system; E87.1 Hypo-osmolality and hyponatremia
CPT/HCPCS: 82962; 94640; 94644; 94645; 96360; 99285; J1644; J1815; J2930; J7030

== ENCOUNTER 2017-01-26 09:43 | Emergency (ER) | payer OTHER ==
[~2017-01-26] VITALS: Ht 167.6 cm; Wt 79.5 kg
[~2017-01-26 09:43] MED LIST changes: +HYDR-305 PO; +PRED5 PO
[2017-01-26 09:52] LABS: GLUCOSE,POINT OF CARE 267 MG/DL (70-110)
[2017-01-26] MEDS ORDERED: ALBUTEROL SULFATE 2.5 MG/0.5 ML NEB SOLUTION NEB ONE (10:15)
[2017-01-26] MEDS ORDERED: IPRATROPIUM BROMIDE 0.5 MG/2.5 ML NEB SOLUTION NEB ONE ×2 (10:15→10:30)
[2017-01-26] MEDS ORDERED: PredniSONE 20 MG TABLET PO ONE (10:30)
[2017-01-26] MEDS ORDERED: ALBUTEROL SULFATE 5 MG/ML 20 ML NEB SOLN [BULK] NEB ONE (10:30)
[2017-01-26] MEDS ORDERED: LEVOFLOXACIN 250 MG TABLET PO ONE (10:30)
[2017-01-26 12:08] VITALS: BP 150/90
== END 2017-01-26 12:21 | disposition home or self-care (01) ==
LOC: EMS 09:45
DX: J44.1 Chronic obstructive pulmonary disease with (acute) exacerbation (principal); J45.901 Unspecified asthma with (acute) exacerbation; I10 Essential (primary) hypertension; E11.9 Type 2 diabetes mellitus without complications; F17.210 Nicotine dependence, cigarettes, uncomplicated; Z88.0 Allergy status to penicillin; Z88.1 Allergy status to other antibiotic agents
CPT/HCPCS: 71010; 82962; 94640; 99284; J7512; J7611; J7613

== ENCOUNTER 2017-01-30 05:15 | Inpatient (IN) | payer OTHER ==
[~2017-01-30] VITALS: Ht 162.6 cm; Wt 64.1 kg
[2017-01-30] MEDS ORDERED: ALBUTEROL SULFATE 5 MG/ML 20 ML NEB SOLN [BULK] NEB ONE ×2 (05:30→08:00)
[2017-01-30] MEDS ORDERED: IPRATROPIUM BROMIDE 0.5 MG/2.5 ML NEB SOLUTION NEB ONE ×2 (05:30→08:00)
[2017-01-30] MEDS ORDERED: 0.9% SODIUM CHLORIDE 5 ML NEB SOLUTION NEB ONE (05:31)
[2017-01-30 05:38] LABS: GLUCOSE,POINT OF CARE 300 MG/DL (70-110)
[2017-01-30] MEDS ORDERED: 0.9% SODIUM CHLORIDE 15 ML NEB SOLUTION NEB ONE (07:53)
[2017-01-30] MEDS ORDERED: SODIUM CHLORIDE 0.9% 1,000 ML IV ONE (08:00)
[2017-01-30] MEDS ORDERED: DEXAMETHASONE SOD PHOS 4 MG/ML 5 ML VIAL IVP ONE (08:00)
[2017-01-30 08:03] LABS: BASOPHILS # (AUTO) 0.06 K/uL (0.00-0.20); BASOPHILS % (AUTO) 0.9 % (0.0-2.0); EOSINOPHILS # (AUTO) 0.13 K/uL (0.00-0.70); EOSINOPHILS % (AUTO) 1.87 % (1.0-6.0); HEMATOCRIT 43.8 % (36-46); HEMOGLOBIN 14.4 g/dL (12.0-16.0); LYMPHOCYTES # (AUTO) 2.6 K/uL (1.0-4.8); LYMPHOCYTES % (AUTO) 37.2 % (22.0-44.0); MEAN CORPUSCULAR HGB CONC 32.9 G/dL (31.0-37.0); MEAN CORPUSCULAR VOLUME 94 fL (80-100); MONOCYTES # (AUTO) 0.5 K/uL (0.1-1.0); MONOCYTES % (AUTO) 7.4 % (2.0-9.0); NEUTROPHILS # (AUTO) 3.6 K/uL (1.8-7.7); NEUTROPHILS % (AUTO) 52.7 % (40.0-70.0); PLATELET COUNT (AUTO) 215 K/uL (150-450); RED BLOOD CELL COUNT(AUTO) 4.65 MIL/uL (4.00-5.20); RED CELL DISTRIBUTION WIDTH 13.8 % (11.5-14.5); WHITE BLOOD COUNT (AUTO) 6.9 K/uL (4.5-11.0)
[2017-01-30 08:19] LABS: ANION GAP 5 mmol/L (8-16); CALCIUM, TOTAL 9.3 mg/dL (8.8-10.5); CARBON DIOXIDE 31 mmol/L (22-29); CHLORIDE 100 mmol/L (98-107); CREATININE 1.21 mg/dL (0.60-1.30); GLOMERULAR FILTR. RATE CALC 56 mL/min (>60); POTASSIUM 3.8 mmol/L (3.5-5.1); SODIUM SERUM 136 mmol/L (136-145); UREA NITROGEN, BLOOD 13 mg/dL (7-18)
[2017-01-30 08:24] LABS: ALANINE AMINOTRANSFERASE 31 U/L (12-78); ALBUMIN 3.6 g/dL (3.4-5.0); ASPARTATE AMINOTRANSFERASE 17 U/L (15-37); BILIRUBIN,TOTAL 0.3 mg/dL (0.1-1.0); TOTAL PROTEIN, SERUM 7.1 g/dL (6.4-8.2)
[2017-01-30 08:28] LABS: B-TYPE NATRIURETIC PEPTIDE 13 pg/mL (0-100)
[2017-01-30 08:46] LABS: INFLUENZA TYPE B NEGATIVE FOR TYPE B (NEGATIVE)
[2017-01-30] MEDS ORDERED: ALBUTEROL SULFATE 2.5 MG/0.5 ML NEB SOLUTION NEB PRN (09:30)
[2017-01-30] MEDS ORDERED: DEXTROSE 50%-WATER 25 GM/50 ML SYRINGE IVP PRN ×2 (09:30→17:30)
[2017-01-30] MEDS ORDERED: ACETAMINOPHEN 325 MG TABLET PO PRN (09:30)
[2017-01-30] MEDS ORDERED: IPRATROPIUM BROMIDE 0.5 MG/2.5 ML NEB SOLUTION NEB PRN (09:30)
[2017-01-30] MEDS ORDERED: INSULIN ASPART 100 UNITS/ML SQ PRN (09:30)
[2017-01-30] MEDS: PANTOPRAZOLE SODIUM 40 MG DR TABLET PO SCH (09:30)
[2017-01-30] MEDS ORDERED: MAGNESIUM HYDROXIDE SUSPENSION 30 ML UDCUP PO PRN (09:30)
[2017-01-30 09:42] VITALS: BP 134/51
[2017-01-30] MEDS: MethylPREDNISolone SOD SUCC 125 MG/2 ML VIAL IVP SCH ×3 (12:00→23:53)
[2017-01-30 12:05] VITALS: BP 147/76
[2017-01-30 15:34] VITALS: BP 156/79
[2017-01-30] MEDS: HEPARIN SODIUM,PORCINE 5,000 UNITS/ML VIAL SQ SCH ×2 (16:00→23:54)
[2017-01-30 16:30] VITALS: BP 134/67
[2017-01-30 16:54] LABS: GLUCOSE,POINT OF CARE 323 MG/DL (70-110)
[2017-01-30] MEDS: GlipiZIDE 5 MG TABLET PO SCH (17:41)
[2017-01-30] MEDS: INSULIN ASPART 100 UNITS/ML SQ PRN ×2 (17:43→20:37)
[2017-01-30 18:52] LABS: GLUCOSE COMMENT 1 Doctor Notified; GLUCOSE COMMENT 2 Received Meds; GLUCOSE,POINT OF CARE 465 MG/DL (70-110)
[2017-01-30 19:20] VITALS: BP 163/91
[2017-01-30] MEDS ORDERED: INSULIN ASPART 100 UNITS/ML SQ ONE (20:45)
[2017-01-30] MEDS: DOCUSATE SODIUM 100 MG CAPSULE PO SCH ×2 (20:46→22:03)
[2017-01-30 22:28] LABS: GLUCOSE COMMENT 1 Doctor Notified; GLUCOSE COMMENT 2 Received Meds; GLUCOSE,POINT OF CARE 511 MG/DL (70-110)
[2017-01-30 23:08] VITALS: BP 160/94
[2017-01-31] MEDS: ALBUTEROL SULFATE 2.5 MG/0.5 ML NEB SOLUTION NEB PRN ×2 (01:30→14:32)
[2017-01-31] MEDS: IPRATROPIUM BROMIDE 0.5 MG/2.5 ML NEB SOLUTION NEB PRN ×2 (01:30→14:31)
[2017-01-31 04:38] VITALS: BP 140/81
[2017-01-31] MEDS: GlipiZIDE 5 MG TABLET PO SCH ×2 (06:05→15:56)
[2017-01-31] MEDS: INSULIN ASPART 100 UNITS/ML SQ PRN ×4 (06:06→20:50)
[2017-01-31 07:07] VITALS: BP 97/47
[2017-01-31 07:23] LABS: GLUCOSE COMMENT 1 Received Meds; GLUCOSE,POINT OF CARE 390 MG/DL (70-110)
[2017-01-31] MEDS: HEPARIN SODIUM,PORCINE 5,000 UNITS/ML VIAL SQ SCH ×3 (08:18→23:43)
[2017-01-31] MEDS: MethylPREDNISolone SOD SUCC 125 MG/2 ML VIAL IVP SCH ×3 (08:18→23:43)
[2017-01-31] MEDS: PANTOPRAZOLE SODIUM 40 MG DR TABLET PO SCH (08:18)
[2017-01-31] MEDS: DOCUSATE SODIUM 100 MG CAPSULE PO SCH ×2 (08:18→20:44)
[2017-01-31 11:25] VITALS: BP 152/95
[2017-01-31 11:53] LABS: GLUCOSE,POINT OF CARE 260 MG/DL (70-110)
[2017-01-31] MEDS: OxyCODONE HCL/ACETAMINOPHEN 5-325 MG TABLET PO PRN ×2 (14:31→21:50)
[2017-01-31 15:42] VITALS: BP 140/81
[2017-01-31 19:38] VITALS: BP 161/80
[2017-01-31 19:58] LABS: GLUCOSE COMMENT 1 Doctor Notified; GLUCOSE COMMENT 2 Received Meds; GLUCOSE,POINT OF CARE 409 MG/DL (70-110)
[2017-01-31] MEDS: FLUTICASONE/VILANTEROL 100-25 MCG/INH INHALER [14] IH SCH (20:45)
[2017-01-31] MEDS: TIOTROPIUM BROMIDE 18 MCG/INH HANDIHALER [5] IH SCH (20:45)
[2017-01-31] MEDS ORDERED: INSULIN DETEMIR 100 UNITS/ML SQ SCH (21:00)
[2017-01-31 21:02] LABS: GLUCOSE COMMENT 1 Received Meds; GLUCOSE,POINT OF CARE 353 MG/DL (70-110)
[2017-01-31 23:36] VITALS: BP 144/98
[2017-02-01 05:12] VITALS: BP 146/82
[2017-02-01] MEDS: GlipiZIDE 5 MG TABLET PO SCH (05:46)
[2017-02-01] MEDS: INSULIN ASPART 100 UNITS/ML SQ PRN (05:50)
[2017-02-01] MEDS ORDERED: INSULIN DETEMIR 100 UNITS/ML SQ ONE (06:00)
[2017-02-01] MEDS: OxyCODONE HCL/ACETAMINOPHEN 5-325 MG TABLET PO PRN (06:16)
[2017-02-01 07:06] LABS: EOSINOPHILS % (AUTO) 0.04 % (1.0-6.0); HEMATOCRIT 42.3 % (36-46); HEMOGLOBIN 13.7 g/dL (12.0-16.0); LYMPHOCYTES # (AUTO) 0.7 K/uL (1.0-4.8); LYMPHOCYTES % (AUTO) 6.1 % (22.0-44.0); MEAN CORPUSCULAR HEMOGLOBIN 31.2 pg (26.0-34.0); MEAN CORPUSCULAR HGB CONC 32.5 G/dL (31.0-37.0); MEAN CORPUSCULAR VOLUME 96 fL (80-100); MONOCYTES # (AUTO) 0.1 K/uL (0.1-1.0); MONOCYTES % (AUTO) 1.1 % (2.0-9.0); NEUTROPHILS # (AUTO) 11.2 K/uL (1.8-7.7); PLATELET COUNT (AUTO) 216 K/uL (150-450); RED CELL DISTRIBUTION WIDTH 13.8 % (11.5-14.5)
[2017-02-01 07:10] LABS: NEUTROPHILS % (AUTO) 92.8 % (40.0-70.0)
[2017-02-01 07:29] LABS: HEMOGLOBIN A1C 10.3 % (4.5-6.2)
[2017-02-01] MEDS: MethylPREDNISolone SOD SUCC 125 MG/2 ML VIAL IVP SCH (07:57)
[2017-02-01] MEDS: HEPARIN SODIUM,PORCINE 5,000 UNITS/ML VIAL SQ SCH (07:57)
[2017-02-01 07:58] LABS: ALBUMIN 3.1 g/dL (3.4-5.0); BILIRUBIN,TOTAL 0.2 mg/dL (0.1-1.0); CALCIUM, TOTAL 9.3 mg/dL (8.8-10.5); CREATININE 1.15 mg/dL (0.60-1.30); POTASSIUM 4.6 mmol/L (3.5-5.1); TOTAL PROTEIN, SERUM 6.5 g/dL (6.4-8.2)
[2017-02-01] MEDS: INSULIN ASPART 100 UNITS/ML SQ SCH ×2 (08:00→11:30)
[2017-02-01] MEDS: TIOTROPIUM BROMIDE 18 MCG/INH HANDIHALER [5] IH SCH (08:01)
[2017-02-01] MEDS: DOCUSATE SODIUM 100 MG CAPSULE PO SCH (08:02)
[2017-02-01] MEDS: PANTOPRAZOLE SODIUM 40 MG DR TABLET PO SCH (08:02)
[2017-02-01] MEDS: FLUTICASONE/VILANTEROL 100-25 MCG/INH INHALER [14] IH SCH (08:03)
[2017-02-01 08:07] VITALS: BP 143/86
[2017-02-01 08:47] LABS: GLUCOSE COMMENT 1 Doctor Notified; GLUCOSE COMMENT 2 Received Meds; GLUCOSE,POINT OF CARE > 600 MG/DL (70-110)
[2017-02-01 10:36] LABS: RBC MORPHOLOGY COMMENT NORMAL RBC MORPH
[2017-02-01 11:39] VITALS: BP 138/77
[2017-02-01 11:58] LABS: GLUCOSE COMMENT 1 Received Meds; GLUCOSE,POINT OF CARE 156 MG/DL (70-110)
[2017-02-01] MEDS ORDERED: FLUT1AER IH (14:24)
[2017-02-01] MEDS ORDERED: TIOT185 IH (14:25)
[2017-02-01] MEDS ORDERED: INSU100V12 SQ (14:25)
[2017-02-01] MEDS ORDERED: INSNOV SQ (14:35)
[2017-02-01] MEDS ORDERED: NICO1PAT49 TD (14:37)
[2017-02-01] MEDS ORDERED: METH4TAB3 PO (14:45)
== END 2017-02-01 15:15 | disposition home or self-care (01) | DRG 140 ==
LOC: EMS 05:16 → 5S 08:05 → 6N 09:37
PROVIDERS: ADMIT Internal Medicine; ATTEND Internal Medicine
DX: J44.1 Chronic obstructive pulmonary disease with (acute) exacerbation (principal); E11.65 Type 2 diabetes mellitus with hyperglycemia; I10 Essential (primary) hypertension; F14.10 Cocaine abuse, uncomplicated; F12.10 Cannabis abuse, uncomplicated; F17.210 Nicotine dependence, cigarettes, uncomplicated; M54.30 Sciatica, unspecified side; F31.9 Bipolar disorder, unspecified; K21.9 Gastro-esophageal reflux disease without esophagitis; Z59.0 Homelessness; Z82.49 Family history of ischemic heart disease and other diseases of the circulatory system; Z83.3 Family history of diabetes mellitus; Z91.19 Patient's noncompliance with other medical treatment and regimen; Z88.1 Allergy status to other antibiotic agents; Z88.0 Allergy status to penicillin; Z91.013 Allergy to seafood; Z79.899 Other long term (current) drug therapy; Z71.51 Drug abuse counseling and surveillance of drug abuser; Z71.6 Tobacco abuse counseling; F91.9 Conduct disorder, unspecified
CPT/HCPCS: 80307; 82962; 83036; 87804; 93005; 94640; 94644; 96361; 96374; 99285; 99407; G0480; J1100; J1644; J1815; J2930; J7030

== ENCOUNTER 2017-03-03 11:45 | Inpatient (IN) | payer OTHER ==
[~2017-03-03] VITALS: Ht 162.6 cm; Wt 62.1 kg
[~2017-03-03 11:45] MED LIST changes: +FLUT1AER IH; -HYDR-305 PO; +INSNOV SQ; +INSU100V12 SQ; +METH4TAB3 PO; +NICO1PAT49 TD; +TIOT185 IH
[2017-03-03] MEDS ORDERED: IPRATROPIUM BROMIDE 0.5 MG/2.5 ML NEB SOLUTION NEB ONE ×2 (12:00→14:45)
[2017-03-03] MEDS ORDERED: ALBUTEROL SULFATE 5 MG/ML 20 ML NEB SOLN [BULK] NEB ONE ×2 (12:00→14:45)
[2017-03-03 12:02] LABS: GLUCOSE,POINT OF CARE 311 MG/DL (70-110)
[2017-03-03 13:14] LABS: BASOPHILS % (AUTO) 0.8 % (0.0-2.0); EOSINOPHILS % (AUTO) 2.7 % (1.0-6.0); HEMATOCRIT 45.9 % (36-46); HEMOGLOBIN 15.5 g/dL (12.0-16.0); LYMPHOCYTES # (AUTO) 1.7 K/uL (1.0-4.8); LYMPHOCYTES % (AUTO) 39.2 % (22.0-44.0); MEAN CORPUSCULAR HEMOGLOBIN 31.5 pg (26.0-34.0); MEAN CORPUSCULAR HGB CONC 33.9 G/dL (31.0-37.0); MEAN CORPUSCULAR VOLUME 93 fL (80-100); MONOCYTES # (AUTO) 0.4 K/uL (0.1-1.0); MONOCYTES % (AUTO) 9.4 % (2.0-9.0); NEUTROPHILS % (AUTO) 47.9 % (40.0-70.0); PLATELET COUNT (AUTO) 240 K/uL (150-450); RED BLOOD CELL COUNT(AUTO) 4.93 MIL/uL (4.00-5.20); RED CELL DISTRIBUTION WIDTH 13.7 % (11.5-14.5); WHITE BLOOD COUNT (AUTO) 4.3 K/uL (4.5-11.0)
[2017-03-03 13:17] LABS: ANION GAP 7 mmol/L (8-16); CALCIUM, TOTAL 9.2 mg/dL (8.8-10.5); CARBON DIOXIDE 30 mmol/L (22-29); CHLORIDE 100 mmol/L (98-107); CREATININE 0.99 mg/dL (0.60-1.30); GLOMERULAR FILTR. RATE CALC > 60 mL/min (>60); POTASSIUM 4.1 mmol/L (3.5-5.1); SODIUM SERUM 137 mmol/L (136-145); UREA NITROGEN, BLOOD 12 mg/dL (7-18)
[2017-03-03 13:22] LABS: ALANINE AMINOTRANSFERASE 31 U/L (12-78); ALBUMIN 3.6 g/dL (3.4-5.0); ASPARTATE AMINOTRANSFERASE 26 U/L (15-37); BILIRUBIN,TOTAL 0.2 mg/dL (0.1-1.0); TOTAL PROTEIN, SERUM 7.9 g/dL (6.4-8.2)
[2017-03-03 13:41] LABS: B-TYPE NATRIURETIC PEPTIDE 19 pg/mL (0-100)
[2017-03-03] MEDS ORDERED: LEVOFLOXACIN 750 MG/D5% WATER 150 ML IV ONE (14:45)
[2017-03-03] MEDS ORDERED: MethylPREDNISolone SOD SUCC 125 MG/2 ML VIAL IVP ONE (14:45)
[2017-03-03 18:11] VITALS: BP 150/87
[2017-03-03 19:57] LABS: GLUCOSE COMMENT 1 Doctor Notified; GLUCOSE,POINT OF CARE 526 MG/DL (70-110)
[2017-03-03] MEDS: ALBUTEROL SULFATE 2.5 MG/0.5 ML NEB SOLUTION NEB SCH (20:07)
[2017-03-03] MEDS: IPRATROPIUM BROMIDE 0.5 MG/2.5 ML NEB SOLUTION NEB SCH (20:08)
[2017-03-03] MEDS ORDERED: INSULIN REGULAR, HUMAN 100 UNITS/ML ONE (20:11)
[2017-03-03] MEDS ORDERED: DEXTROSE 50%-WATER 25 GM/50 ML SYRINGE IVP PRN ×2 (20:15→23:00)
[2017-03-03] MEDS: INSULIN ASPART 100 UNITS/ML SQ PRN (20:21)
[2017-03-03 20:57] VITALS: BP 156/99
[2017-03-03] MEDS ORDERED: 0.9% SODIUM CHLORIDE 10 ML SYRINGE IVP PRN (23:00)
[2017-03-03] MEDS ORDERED: PRAVASTATIN SODIUM 40 MG TABLET PO SCH (23:00)
[2017-03-03] MEDS ORDERED: INSULIN DETEMIR 100 UNITS/ML SQ SCH (23:00)
[2017-03-03] MEDS ORDERED: INSULIN ASPART 100 UNITS/ML SQ PRN (23:00)
[2017-03-03] MEDS ORDERED: ALBUTEROL SULFATE 2.5 MG/0.5 ML NEB SOLUTION NEB PRN (23:00)
[2017-03-03] MEDS ORDERED: OxyCODONE HCL/ACETAMINOPHEN 5-325 MG TABLET PO PRN ×2 (23:00)
[2017-03-03] MEDS ORDERED: *CLINICAL-LEVOFLOXACIN IVPB DOSING CLINICAL ONE ×2 (23:00)
[2017-03-03] MEDS: DOCUSATE SODIUM 100 MG CAPSULE PO SCH (23:13)
[2017-03-03] MEDS ORDERED: QUEtiapine FUMARATE 100 MG TABLET PO SCH (23:30)
[2017-03-03] MEDS: MethylPREDNISolone SOD SUCC 125 MG/2 ML VIAL IVP SCH (23:31)
[2017-03-04] MEDS ORDERED: IPRATROPIUM BROMIDE 0.5 MG/2.5 ML NEB SOLUTION NEB SCH (02:00)
[2017-03-04] MEDS ORDERED: ALBUTEROL SULFATE 2.5 MG/0.5 ML NEB SOLUTION NEB SCH (02:00)
[2017-03-04] MEDS: ALBUTEROL SULFATE 2.5 MG/0.5 ML NEB SOLUTION NEB SCH ×3 (02:34→14:52)
[2017-03-04] MEDS: IPRATROPIUM BROMIDE 0.5 MG/2.5 ML NEB SOLUTION NEB SCH ×3 (02:34→14:52)
[2017-03-04 03:07] LABS: GLUCOSE COMMENT 1 Juice/Food/D50 Given; GLUCOSE,POINT OF CARE 433 MG/DL (70-110)
[2017-03-04 03:07] LABS: GLUCOSE COMMENT 1 Juice/Food/D50 Given; GLUCOSE,POINT OF CARE 563 MG/DL (70-110)
[2017-03-04 05:01] VITALS: BP 146/71
[2017-03-04] MEDS: INSULIN ASPART 100 UNITS/ML SQ PRN (05:48)
[2017-03-04] MEDS ORDERED: SODIUM CHLORIDE 0.9% 250 ML IV ONE (06:05)
[2017-03-04 07:02] LABS: ANION GAP 9 mmol/L (8-16); CALCIUM, TOTAL 9.5 mg/dL (8.8-10.5); CARBON DIOXIDE 27 mmol/L (22-29); CHLORIDE 98 mmol/L (98-107); CREATININE 1.04 mg/dL (0.60-1.30); GLOMERULAR FILTR. RATE CALC > 60 mL/min (>60); POTASSIUM 4.2 mmol/L (3.5-5.1); SODIUM SERUM 134 mmol/L (136-145); UREA NITROGEN, BLOOD 20 mg/dL (7-18)
[2017-03-04 07:36] LABS: BASOPHILS % (AUTO) 0.1 % (0.0-2.0); EOSINOPHILS % (AUTO) 0 % (1.0-6.0); HEMATOCRIT 43.2 % (36-46); HEMOGLOBIN 14.6 g/dL (12.0-16.0); LYMPHOCYTES # (AUTO) 0.5 K/uL (1.0-4.8); LYMPHOCYTES % (AUTO) 17.1 % (22.0-44.0); MEAN CORPUSCULAR HEMOGLOBIN 31.6 pg (26.0-34.0); MEAN CORPUSCULAR HGB CONC 33.9 G/dL (31.0-37.0); MEAN CORPUSCULAR VOLUME 93 fL (80-100); MONOCYTES % (AUTO) 1.2 % (2.0-9.0); NEUTROPHILS # (AUTO) 2.5 K/uL (1.8-7.7); NEUTROPHILS % (AUTO) 81.6 % (40.0-70.0); RED BLOOD CELL COUNT(AUTO) 4.62 MIL/uL (4.00-5.20); RED CELL DISTRIBUTION WIDTH 13.4 % (11.5-14.5); WHITE BLOOD COUNT (AUTO) 3.1 K/uL (4.5-11.0)
[2017-03-04 08:00] VITALS: BP 150/93
[2017-03-04] MEDS: DOCUSATE SODIUM 100 MG CAPSULE PO SCH (08:11)
[2017-03-04] MEDS: MethylPREDNISolone SOD SUCC 125 MG/2 ML VIAL IVP SCH (08:16)
[2017-03-04 08:47] LABS: GLUCOSE COMMENT 1 Juice/Food/D50 Given; GLUCOSE,POINT OF CARE 398 MG/DL (70-110)
[2017-03-04] MEDS ORDERED: PANTOPRAZOLE SODIUM 40 MG/VIAL IVP SCH (09:00)
[2017-03-04] MEDS ORDERED: FLUTICASONE/VILANTEROL 100-25 MCG/INH INHALER [14] IH SCH (09:00)
[2017-03-04] MEDS ORDERED: TIOTROPIUM BROMIDE 18 MCG/INH HANDIHALER [5] IH SCH (09:00)
[2017-03-04] MEDS ORDERED: NICOTINE 14 MG/24 HOUR PATCH TD SCH (09:00)
[2017-03-04 09:53] LABS: PLATELET COUNT (AUTO) 204 K/uL (150-450)
[2017-03-04 11:58] VITALS: BP 154/96
[2017-03-04 12:53] LABS: GLUCOSE COMMENT 1 Received Meds; GLUCOSE,POINT OF CARE 333 MG/DL (70-110)
[2017-03-04] MEDS ORDERED: AMLO2.5T2 PO (14:09)
[2017-03-04] MEDS ORDERED: LEVOFLOXACIN 750 MG/D5% WATER 150 ML IV SCH (15:00)
== END 2017-03-04 15:12 | disposition home or self-care (01) | DRG 420 ==
LOC: EMS 11:46 → AHU 17:23 → 6N 20:31
PROVIDERS: ADMIT Internal Medicine; ATTEND Internal Medicine
DX: E11.65 Type 2 diabetes mellitus with hyperglycemia (principal); J44.0 Chronic obstructive pulmonary disease with (acute) lower respiratory infection; J45.901 Unspecified asthma with (acute) exacerbation; J44.1 Chronic obstructive pulmonary disease with (acute) exacerbation; K21.9 Gastro-esophageal reflux disease without esophagitis; I10 Essential (primary) hypertension; M54.30 Sciatica, unspecified side; E78.00 Pure hypercholesterolemia, unspecified; F17.210 Nicotine dependence, cigarettes, uncomplicated; E78.5 Hyperlipidemia, unspecified; Z82.49 Family history of ischemic heart disease and other diseases of the circulatory system; Z83.3 Family history of diabetes mellitus; Z91.19 Patient's noncompliance with other medical treatment and regimen; Z88.1 Allergy status to other antibiotic agents; Z88.0 Allergy status to penicillin; Z91.013 Allergy to seafood; Z79.899 Other long term (current) drug therapy
CPT/HCPCS: 82962; 93005; 94060; 94640; 94644; 96374; 96375; 99285; C9113; J1815; J1956; J2930; J7050

== ENCOUNTER 2017-03-12 01:27 | Emergency (ER) | payer OTHER ==
[~2017-03-12] VITALS: Ht 160 cm; Wt 86.4 kg
[~2017-03-12 01:27] MED LIST changes: +AMLO2.5T2 PO; -COMBIH IH; -METH4TAB3 PO; -PANT20TA PO; -PRED5 PO
[2017-03-12 01:42] LABS: GLUCOSE,POINT OF CARE 305 MG/DL (70-110)
[2017-03-12] MEDS ORDERED: IPRATROPIUM BROMIDE 0.5 MG/2.5 ML NEB SOLUTION NEB ONE ×3 (01:45→04:00)
[2017-03-12] MEDS ORDERED: ALBUTEROL SULFATE 2.5 MG/0.5 ML NEB SOLUTION NEB ONE (02:00)
[2017-03-12] MEDS ORDERED: ALBUTEROL SULFATE 5 MG/ML 20 ML NEB SOLN [BULK] NEB ONE (04:00)
[2017-03-12] MEDS ORDERED: 0.9% SODIUM CHLORIDE 5 ML NEB SOLUTION NEB ONE (04:22)
[2017-03-12 05:40] VITALS: BP 139/82
== END 2017-03-12 05:53 | disposition home or self-care (01) ==
LOC: EMS 01:28
DX: J44.1 Chronic obstructive pulmonary disease with (acute) exacerbation (principal); J45.901 Unspecified asthma with (acute) exacerbation; I10 Essential (primary) hypertension; E11.9 Type 2 diabetes mellitus without complications; K21.9 Gastro-esophageal reflux disease without esophagitis; J45.909 Unspecified asthma, uncomplicated; F14.90 Cocaine use, unspecified, uncomplicated; F17.210 Nicotine dependence, cigarettes, uncomplicated; Z79.4 Long term (current) use of insulin; Z88.0 Allergy status to penicillin; Z88.1 Allergy status to other antibiotic agents
CPT/HCPCS: 82962; 94644; 99285; J7611; J7613; 94640

== ENCOUNTER 2017-03-13 07:13 | Emergency (ER) | payer OTHER ==
[~2017-03-13] VITALS: Ht 154.9 cm; Wt 59.1 kg
[2017-03-13 07:42] LABS: GLUCOSE,POINT OF CARE 271 MG/DL (70-110)
[2017-03-13] MEDS ORDERED: IPRATROPIUM BROMIDE 0.5 MG/2.5 ML NEB SOLUTION NEB ONE ×2 (08:00→09:15)
[2017-03-13] MEDS ORDERED: ALBUTEROL SULFATE 5 MG/ML 20 ML NEB SOLN [BULK] NEB ONE ×2 (08:00→09:15)
[2017-03-13] MEDS ORDERED: PredniSONE 20 MG TABLET PO ONE (08:00)
[2017-03-13] MEDS ORDERED: 0.9% SODIUM CHLORIDE 5 ML NEB SOLUTION NEB ONE ×2 (10:22)
[2017-03-13 10:51] VITALS: BP 147/82
[2017-03-13] MEDS ORDERED: ALBUTEROL SULFATE HFA 90 MCG/PUFF 8 GM INHALER IH ONE (11:00)
== END 2017-03-13 11:00 | disposition home or self-care (01) ==
LOC: EMS 07:15
DX: J44.1 Chronic obstructive pulmonary disease with (acute) exacerbation (principal); J45.909 Unspecified asthma, uncomplicated; E11.9 Type 2 diabetes mellitus without complications; I10 Essential (primary) hypertension; K21.9 Gastro-esophageal reflux disease without esophagitis; F17.210 Nicotine dependence, cigarettes, uncomplicated; F14.90 Cocaine use, unspecified, uncomplicated; Z79.4 Long term (current) use of insulin; Z88.0 Allergy status to penicillin; Z88.1 Allergy status to other antibiotic agents
CPT/HCPCS: 82962; 94640; 99285; J7512; J7611; J3535

== ENCOUNTER 2017-03-16 23:22 | Emergency (ER) | payer OTHER ==
[~2017-03-16] VITALS: Ht 162.6 cm; Wt 59.1 kg
[2017-03-16 23:33] LABS: GLUCOSE,POINT OF CARE 216 MG/DL (70-110)
[2017-03-17] MEDS ORDERED: MORPHINE SULFATE 4 MG/ML SYRINGE IVP ONE (03:30)
[2017-03-17] MEDS ORDERED: ONDANSETRON HCL 4 MG/2 ML VIAL IVP ONE (03:30)
[2017-03-17] MEDS ORDERED: IPRATROPIUM BROMIDE 0.5 MG/2.5 ML NEB SOLUTION NEB ONE (03:30)
[2017-03-17] MEDS ORDERED: SODIUM CHLORIDE 0.9% 500 ML IV ONE (03:30)
[2017-03-17] MEDS ORDERED: ALBUTEROL SULFATE 5 MG/ML 20 ML NEB SOLN [BULK] NEB ONE (03:30)
[2017-03-17] MEDS ORDERED: ALBUTEROL SULFATE 2.5 MG/0.5 ML NEB SOLUTION NEB ONE ×3 (03:47→06:15)
[2017-03-17 05:32] VITALS: BP 127/80
[2017-03-17] MEDS ORDERED: DEXAMETHASONE SOD PHOS 4 MG/ML 5 ML VIAL IVP ONE (06:15)
== END 2017-03-17 06:13 | disposition home or self-care (01) ==
LOC: EMS 23:23
DX: J44.1 Chronic obstructive pulmonary disease with (acute) exacerbation (principal); B34.9 Viral infection, unspecified; E11.9 Type 2 diabetes mellitus without complications; K21.9 Gastro-esophageal reflux disease without esophagitis; I10 Essential (primary) hypertension; F17.210 Nicotine dependence, cigarettes, uncomplicated; Z88.0 Allergy status to penicillin; Z88.1 Allergy status to other antibiotic agents; Z79.4 Long term (current) use of insulin; Z79.899 Other long term (current) drug therapy
CPT/HCPCS: 71045; 82962; 94640; 96361; 96374; 96375; 99284; J2270; J2405; J7040; J7613

== ENCOUNTER 2017-03-17 10:38 | Inpatient (IN) | payer OTHER ==
[~2017-03-17] VITALS: Ht 162.6 cm; Wt 60.2 kg
[2017-03-17] MEDS ORDERED: ALBUTEROL SULFATE 5 MG/ML 20 ML NEB SOLN [BULK] NEB ONE (11:00)
[2017-03-17] MEDS ORDERED: IPRATROPIUM BROMIDE 0.5 MG/2.5 ML NEB SOLUTION NEB ONE (11:00)
[2017-03-17 11:08] LABS: GLUCOSE,POINT OF CARE 210 MG/DL (70-110)
[2017-03-17 15:21] LABS: BASOPHILS # (AUTO) 0.01 K/uL (0.00-0.20); BASOPHILS % (AUTO) 0.1 % (0.0-2.0); EOSINOPHILS # (AUTO) 0.07 K/uL (0.00-0.70); EOSINOPHILS % (AUTO) 0.93 % (1.0-6.0); HEMATOCRIT 47.5 % (36-46); HEMOGLOBIN 15.5 g/dL (12.0-16.0); LYMPHOCYTES % (AUTO) 25.5 % (22.0-44.0); MEAN CORPUSCULAR HEMOGLOBIN 30.6 pg (26.0-34.0); MEAN CORPUSCULAR HGB CONC 32.6 G/dL (31.0-37.0); MEAN CORPUSCULAR VOLUME 94 fL (80-100); MONOCYTES # (AUTO) 0.3 K/uL (0.1-1.0); MONOCYTES % (AUTO) 3.5 % (2.0-9.0); NEUTROPHILS # (AUTO) 5.5 K/uL (1.8-7.7); NEUTROPHILS % (AUTO) 70.1 % (40.0-70.0); PLATELET COUNT (AUTO) 234 K/uL (150-450); RED BLOOD CELL COUNT(AUTO) 5.07 MIL/uL (4.00-5.20); RED CELL DISTRIBUTION WIDTH 13.6 % (11.5-14.5)
[2017-03-17] MEDS ORDERED: ACETAMINOPHEN 325 MG TABLET PO PRN (15:30)
[2017-03-17] MEDS ORDERED: BISACODYL 10 MG RECTAL RECTAL SUPPOSITORY PR PRN (15:30)
[2017-03-17 15:38] LABS: ANION GAP 6 mmol/L (8-16); CALCIUM, TOTAL 9.3 mg/dL (8.8-10.5); CARBON DIOXIDE 32 mmol/L (22-29); CHLORIDE 94 mmol/L (98-107); CREATININE 0.87 mg/dL (0.60-1.30); GLOMERULAR FILTR. RATE CALC > 60 mL/min (>60); GLUCOSE,RANDOM 301 mg/dL (70-110); INR 0.9 (0.9-1.1); POTASSIUM 4.2 mmol/L (3.5-5.1); SODIUM SERUM 132 mmol/L (136-145); UREA NITROGEN, BLOOD 11 mg/dL (7-18)
[2017-03-17 15:45] LABS: ALANINE AMINOTRANSFERASE 24 U/L (12-78); ALBUMIN 3.5 g/dL (3.4-5.0); ALKALINE PHOSPHATASE 102 U/L (46-116); ASPARTATE AMINOTRANSFERASE 16 U/L (15-37); BILIRUBIN,TOTAL 0.5 mg/dL (0.1-1.0); CREATINE KINASE, TOTAL 57 U/L (26-192); TOTAL PROTEIN, SERUM 7.8 g/dL (6.4-8.2)
[2017-03-17] MEDS ORDERED: DEXTROSE 50%-WATER 25 GM/50 ML SYRINGE IVP PRN (15:45)
[2017-03-17] MEDS: AZITHROMYCIN 500 MG/NS 250 ML IV SCH (15:50)
[2017-03-17 16:44] LABS: B-TYPE NATRIURETIC PEPTIDE 5 pg/mL (0-100)
[2017-03-17] MEDS: MethylPREDNISolone SOD SUCC 125 MG/2 ML VIAL IVP SCH (17:10)
[2017-03-17] MEDS: ALBUTEROL SULFATE 2.5 MG/0.5 ML NEB SOLUTION NEB SCH (18:36)
[2017-03-17] MEDS: IPRATROPIUM BROMIDE 0.5 MG/2.5 ML NEB SOLUTION NEB SCH (18:37)
[2017-03-17] MEDS: DOCUSATE SODIUM 100 MG CAPSULE PO SCH (20:43)
[2017-03-17 21:08] LABS: GLUCOSE,POINT OF CARE 217 MG/DL (70-110)
[2017-03-17] MEDS: INSULIN DETEMIR 100 UNITS/ML SQ SCH (21:14)
[2017-03-17] MEDS: HEPARIN SODIUM,PORCINE 5,000 UNITS/ML VIAL SQ SCH (21:14)
[2017-03-17] MEDS: OxyCODONE HCL/ACETAMINOPHEN 5-325 MG TABLET PO PRN (22:15)
[2017-03-17] MEDS: OSELTAMIVIR PHOSPHATE 75 MG CAPSULE PO SCH (22:15)
[2017-03-17 22:50] VITALS: BP 153/95
[2017-03-17] MEDS: INSULIN ASPART 100 UNITS/ML SQ PRN (23:01)
[2017-03-18] MEDS: ALBUTEROL SULFATE 2.5 MG/0.5 ML NEB SOLUTION NEB SCH ×7 (00:01→23:35)
[2017-03-18] MEDS: IPRATROPIUM BROMIDE 0.5 MG/2.5 ML NEB SOLUTION NEB SCH ×7 (00:01→23:36)
[2017-03-18] MEDS: MethylPREDNISolone SOD SUCC 125 MG/2 ML VIAL IVP SCH ×3 (00:27→21:36)
[2017-03-18 05:10] VITALS: BP 137/82
[2017-03-18] MEDS: INSULIN ASPART 100 UNITS/ML SQ PRN ×4 (06:11→21:34)
[2017-03-18 07:36] VITALS: BP 132/69
[2017-03-18] MEDS: PANTOPRAZOLE SODIUM 40 MG DR TABLET PO SCH (08:12)
[2017-03-18] MEDS: OSELTAMIVIR PHOSPHATE 75 MG CAPSULE PO SCH ×2 (08:12→21:36)
[2017-03-18] MEDS: DOCUSATE SODIUM 100 MG CAPSULE PO SCH ×2 (08:12→21:36)
[2017-03-18] MEDS: HEPARIN SODIUM,PORCINE 5,000 UNITS/ML VIAL SQ SCH ×2 (08:13→21:35)
[2017-03-18] MEDS: ASPIRIN 81 MG CHEWABLE TABLET PO SCH (08:13)
[2017-03-18 08:21] LABS: GLUCOMETER DEV NAME(LOC) 5N 1M; GLUCOSE,POINT OF CARE 213 MG/DL (70-110)
[2017-03-18 10:41] VITALS: BP 161/101
[2017-03-18] MEDS: OxyCODONE HCL/ACETAMINOPHEN 5-325 MG TABLET PO PRN ×2 (10:52→19:02)
[2017-03-18] MEDS ORDERED: SODIUM CHLORIDE 0.9% 100 ML ONE (15:10)
[2017-03-18] MEDS: AZITHROMYCIN 500 MG/NS 250 ML IV SCH (15:24)
[2017-03-18 15:55] VITALS: BP 143/86
[2017-03-18 19:47] VITALS: BP 152/90
[2017-03-18 21:29] LABS: GLUCOMETER DEV NAME(LOC) 5S 2N; GLUCOSE,POINT OF CARE 398 MG/DL (70-110)
[2017-03-18 21:29] LABS: GLUCOMETER DEV NAME(LOC) 5S 2N; GLUCOSE,POINT OF CARE 387 MG/DL (70-110)
[2017-03-18] MEDS: INSULIN DETEMIR 100 UNITS/ML SQ SCH (21:33)
[2017-03-18 23:40] VITALS: BP 149/91
[2017-03-19 00:08] LABS: GLUCOMETER DEV NAME(LOC) PV 4E; GLUCOSE,POINT OF CARE 167 MG/DL (70-110)
[2017-03-19] MEDS: OxyCODONE HCL/ACETAMINOPHEN 5-325 MG TABLET PO PRN ×3 (02:02→20:20)
[2017-03-19] MEDS: IPRATROPIUM BROMIDE 0.5 MG/2.5 ML NEB SOLUTION NEB SCH ×7 (03:00→23:00)
[2017-03-19] MEDS: ALBUTEROL SULFATE 2.5 MG/0.5 ML NEB SOLUTION NEB SCH ×7 (03:00→23:00)
[2017-03-19 05:12] VITALS: BP 139/84
[2017-03-19] MEDS: INSULIN ASPART 100 UNITS/ML SQ PRN ×4 (05:54→22:23)
[2017-03-19 06:28] LABS: GLUCOMETER DEV NAME(LOC) PV 4E; GLUCOSE,POINT OF CARE 538 MG/DL (70-110)
[2017-03-19 06:58] LABS: GLUCOMETER DEV NAME(LOC) 5N 1M; GLUCOSE,POINT OF CARE 290 MG/DL (70-110)
[2017-03-19 08:19] VITALS: BP 140/84
[2017-03-19] MEDS: PANTOPRAZOLE SODIUM 40 MG DR TABLET PO SCH (09:22)
[2017-03-19] MEDS: ASPIRIN 81 MG CHEWABLE TABLET PO SCH (09:22)
[2017-03-19] MEDS: HEPARIN SODIUM,PORCINE 5,000 UNITS/ML VIAL SQ SCH ×2 (09:22→20:20)
[2017-03-19] MEDS: MethylPREDNISolone SOD SUCC 125 MG/2 ML VIAL IVP SCH ×2 (09:22→20:18)
[2017-03-19] MEDS: DOCUSATE SODIUM 100 MG CAPSULE PO SCH ×2 (09:27→20:19)
[2017-03-19] MEDS: OSELTAMIVIR PHOSPHATE 75 MG CAPSULE PO SCH ×2 (10:06→20:20)
[2017-03-19 12:29] VITALS: BP 162/77
[2017-03-19] MEDS: AZITHROMYCIN 500 MG/NS 250 ML IV SCH (16:38)
[2017-03-19] MEDS ORDERED: SODIUM CHLORIDE 0.9% 500 ML IV ONE (16:44)
[2017-03-19 17:08] VITALS: BP 157/97
[2017-03-19 19:45] VITALS: BP 144/90
[2017-03-19] MEDS: INSULIN DETEMIR 100 UNITS/ML SQ SCH (22:24)
[2017-03-19 22:26] LABS: AMPHET/METH SCREEN,URINE NEGATIVE (NEGATIVE); BARBITURATE SCREEN, URINE NEGATIVE (NEGATIVE); BENZODIAZEPINES SCREEN,URINE NEGATIVE (NEGATIVE); CANNABINOID SCREEN,URINE NEGATIVE (NEGATIVE); COCAINE SCREEN,URINE POSITIVE (NEGATIVE); METHADONE SCREEN, URINE NEGATIVE (NEGATIVE); OPIATE SCREEN,URINE NEGATIVE (NEGATIVE)
[2017-03-19 22:27] LABS: PHENCYCLIDINE SCREEN,URINE NEGATIVE (NEGATIVE)
[2017-03-19 22:38] LABS: GLUCOMETER DEV NAME(LOC) PV 4E; GLUCOSE,POINT OF CARE 433 MG/DL (70-110)
[2017-03-19 22:38] LABS: GLUCOMETER DEV NAME(LOC) PV 4E; GLUCOSE,POINT OF CARE 200 MG/DL (70-110)
[2017-03-19 22:38] LABS: GLUCOMETER DEV NAME(LOC) PV 4E; GLUCOSE,POINT OF CARE 282 MG/DL (70-110)
[2017-03-19 22:54] VITALS: BP 153/89
[2017-03-20] MEDS: IPRATROPIUM BROMIDE 0.5 MG/2.5 ML NEB SOLUTION NEB SCH ×3 (02:41→10:26)
[2017-03-20] MEDS: ALBUTEROL SULFATE 2.5 MG/0.5 ML NEB SOLUTION NEB SCH ×3 (02:41→10:26)
[2017-03-20 05:04] VITALS: BP 149/84
[2017-03-20] MEDS: INSULIN ASPART 100 UNITS/ML SQ PRN ×2 (05:42→12:01)
[2017-03-20 06:09] LABS: GLUCOMETER DEV NAME(LOC) PV 4E; GLUCOSE,POINT OF CARE 502 MG/DL (70-110)
[2017-03-20 07:01] LABS: ANION GAP 6 mmol/L (8-16); CALCIUM, TOTAL 9.9 mg/dL (8.8-10.5); CARBON DIOXIDE 30 mmol/L (22-29); CHLORIDE 91 mmol/L (98-107); CREATININE 0.89 mg/dL (0.60-1.30); GLOMERULAR FILTR. RATE CALC > 60 mL/min (>60); POTASSIUM 4.2 mmol/L (3.5-5.1); SODIUM SERUM 127 mmol/L (136-145); UREA NITROGEN, BLOOD 16 mg/dL (7-18)
[2017-03-20 07:24] LABS: GLUCOSE,RANDOM 437 mg/dL (70-110)
[2017-03-20 07:26] LABS: BASOPHILS % (AUTO) 0.4 % (0.0-2.0); EOSINOPHILS % (AUTO) 0 % (1.0-6.0); HEMATOCRIT 40.1 % (36-46); HEMOGLOBIN 13.8 g/dL (12.0-16.0); LYMPHOCYTES # (AUTO) 1.4 K/uL (1.0-4.8); LYMPHOCYTES % (AUTO) 17.7 % (22.0-44.0); MEAN CORPUSCULAR HEMOGLOBIN 31.4 pg (26.0-34.0); MEAN CORPUSCULAR HGB CONC 34.3 G/dL (31.0-37.0); MEAN CORPUSCULAR VOLUME 92 fL (80-100); MONOCYTES # (AUTO) 0.2 K/uL (0.1-1.0); NEUTROPHILS # (AUTO) 6.2 K/uL (1.8-7.7); NEUTROPHILS % (AUTO) 78.9 % (40.0-70.0); PLATELET COUNT (AUTO) 227 K/uL (150-450); RED BLOOD CELL COUNT(AUTO) 4.38 MIL/uL (4.00-5.20); RED CELL DISTRIBUTION WIDTH 13.6 % (11.5-14.5)
[2017-03-20 07:57] VITALS: BP 160/106
[2017-03-20] MEDS ORDERED: INSULIN DETEMIR 100 UNITS/ML SQ SCH (09:00)
[2017-03-20] MEDS: OSELTAMIVIR PHOSPHATE 75 MG CAPSULE PO SCH (10:26)
[2017-03-20] MEDS: HEPARIN SODIUM,PORCINE 5,000 UNITS/ML VIAL SQ SCH (10:27)
[2017-03-20] MEDS: DOCUSATE SODIUM 100 MG CAPSULE PO SCH (10:27)
[2017-03-20] MEDS: ASPIRIN 81 MG CHEWABLE TABLET PO SCH (10:27)
[2017-03-20] MEDS: PANTOPRAZOLE SODIUM 40 MG DR TABLET PO SCH (10:27)
[2017-03-20] MEDS: MethylPREDNISolone SOD SUCC 125 MG/2 ML VIAL IVP SCH (10:28)
[2017-03-20 11:50] VITALS: BP 156/82
[2017-03-20 16:37] LABS: GLUCOMETER DEV NAME(LOC) PV 4E; GLUCOSE,POINT OF CARE 173 MG/DL (70-110)
[2017-03-20 16:37] LABS: GLUCOMETER DEV NAME(LOC) PV 4E; GLUCOSE,POINT OF CARE 216 MG/DL (70-110)
== END 2017-03-20 13:33 | disposition home or self-care (01) | DRG 420 ==
LOC: EMS 10:41 → 5S 21:13 → 4E 03-18 18:00
PROVIDERS: ADMIT Internal Medicine; ATTEND Internal Medicine
DX: E11.65 Type 2 diabetes mellitus with hyperglycemia (principal); J44.0 Chronic obstructive pulmonary disease with (acute) lower respiratory infection; J44.1 Chronic obstructive pulmonary disease with (acute) exacerbation; J45.901 Unspecified asthma with (acute) exacerbation; K21.9 Gastro-esophageal reflux disease without esophagitis; I10 Essential (primary) hypertension; J20.9 Acute bronchitis, unspecified; B34.9 Viral infection, unspecified; F19.10 Other psychoactive substance abuse, uncomplicated; F17.210 Nicotine dependence, cigarettes, uncomplicated; M54.30 Sciatica, unspecified side; Z88.0 Allergy status to penicillin; Z91.19 Patient's noncompliance with other medical treatment and regimen; Z88.1 Allergy status to other antibiotic agents; Z79.4 Long term (current) use of insulin; Z91.11 Patient's noncompliance with dietary regimen; Z91.013 Allergy to seafood; Z71.6 Tobacco abuse counseling; Z22.322 Carrier or suspected carrier of Methicillin resistant Staphylococcus aureus; Z82.49 Family history of ischemic heart disease and other diseases of the circulatory system; Z83.3 Family history of diabetes mellitus
CPT/HCPCS: 80307; 82962; 87040; 87081; 93005; 94640; 94644; 99285; J0456; J1644; J2930; J7040; J7050

== ENCOUNTER 2017-04-10 16:39 | Emergency (ER) | payer OTHER ==
[~2017-04-10] VITALS: Ht 162.6 cm; Wt 63.6 kg
[~2017-04-10 16:39] MED LIST changes: -GLYB5TAB8 PO
[2017-04-10 17:03] LABS: GLUCOSE,POINT OF CARE 310 MG/DL (70-110)
[2017-04-10] MEDS ORDERED: DEXAMETHASONE SOD PHOS 4 MG/ML 5 ML VIAL IVP ONE (17:30)
[2017-04-10] MEDS ORDERED: ALBUTEROL SULFATE 5 MG/ML 20 ML NEB SOLN [BULK] NEB ONE (17:30)
[2017-04-10] MEDS ORDERED: IPRATROPIUM BROMIDE 0.5 MG/2.5 ML NEB SOLUTION NEB ONE (17:30)
[2017-04-10] MEDS ORDERED: INSULIN REGULAR, HUMAN 100 UNITS/ML IVP ONE (17:30)
[2017-04-10] MEDS ORDERED: SODIUM CHLORIDE 0.9% 1,000 ML IV ONE (17:30)
[2017-04-10 17:52] LABS: BASOPHILS % (AUTO) 1.2 % (0.0-2.0); EOSINOPHILS % (AUTO) 3.3 % (1.0-6.0); HEMATOCRIT 45.7 % (36-46); HEMOGLOBIN 15.7 g/dL (12.0-16.0); LYMPHOCYTES # (AUTO) 1.3 K/uL (1.0-4.8); LYMPHOCYTES % (AUTO) 36.9 % (22.0-44.0); MEAN CORPUSCULAR HEMOGLOBIN 31.6 pg (26.0-34.0); MEAN CORPUSCULAR HGB CONC 34.4 G/dL (31.0-37.0); MEAN CORPUSCULAR VOLUME 92 fL (80-100); MONOCYTES # (AUTO) 0.3 K/uL (0.1-1.0); NEUTROPHILS # (AUTO) 1.8 K/uL (1.8-7.7); NEUTROPHILS % (AUTO) 49.6 % (40.0-70.0); PLATELET COUNT (AUTO) 252 K/uL (150-450); RED BLOOD CELL COUNT(AUTO) 4.99 MIL/uL (4.00-5.20); RED CELL DISTRIBUTION WIDTH 13.8 % (11.5-14.5)
[2017-04-10 18:03] LABS: ANION GAP 8 mmol/L (8-16); CALCIUM, TOTAL 9.8 mg/dL (8.8-10.5); CARBON DIOXIDE 31 mmol/L (22-29); CHLORIDE 100 mmol/L (98-107); GLOMERULAR FILTR. RATE CALC > 60 mL/min (>60); GLUCOSE,RANDOM 281 mg/dL (70-110); POTASSIUM 4.2 mmol/L (3.5-5.1); SODIUM SERUM 139 mmol/L (136-145); UREA NITROGEN, BLOOD 13 mg/dL (7-18)
[2017-04-10 18:09] LABS: ALANINE AMINOTRANSFERASE 39 U/L (12-78); ALKALINE PHOSPHATASE 178 U/L (46-116); ASPARTATE AMINOTRANSFERASE 24 U/L (15-37); BILIRUBIN,TOTAL 0.5 mg/dL (0.1-1.0); TOTAL PROTEIN, SERUM 8.4 g/dL (6.4-8.2)
[2017-04-10 18:38] LABS: GLUCOSE,POINT OF CARE 125 MG/DL (70-110)
[2017-04-10 18:46] VITALS: BP 152/97
[2017-04-10] MEDS ORDERED: ALBUTEROL SULFATE HFA 90 MCG/PUFF 8 GM INHALER IH ONE (19:45)
== END 2017-04-10 19:24 | disposition home or self-care (01) ==
LOC: EMS 16:40
DX: J45.901 Unspecified asthma with (acute) exacerbation (principal); J44.1 Chronic obstructive pulmonary disease with (acute) exacerbation; E11.65 Type 2 diabetes mellitus with hyperglycemia; I10 Essential (primary) hypertension; K21.9 Gastro-esophageal reflux disease without esophagitis; F17.210 Nicotine dependence, cigarettes, uncomplicated; F14.10 Cocaine abuse, uncomplicated; Z91.14 Patient's other noncompliance with medication regimen; Z79.4 Long term (current) use of insulin; Z88.0 Allergy status to penicillin
CPT/HCPCS: 36415; 80053; 82948; 82962; 85025; 94644; 96374; 96375; 99285; 99406; J1100; J1815; J7030; J7611; J3535

== ENCOUNTER 2017-04-19 05:39 | Emergency (ER) | payer OTHER ==
[~2017-04-19] VITALS: Ht 162.6 cm; Wt 68.0 kg
[2017-04-19] MEDS ORDERED: ALBUTEROL SULFATE 5 MG/ML 20 ML NEB SOLN [BULK] NEB ONE (05:45)
[2017-04-19] MEDS ORDERED: IPRATROPIUM BROMIDE 0.5 MG/2.5 ML NEB SOLUTION NEB ONE (05:45)
[2017-04-19] MEDS ORDERED: 0.9% SODIUM CHLORIDE 5 ML NEB SOLUTION NEB ONE (05:49)
[2017-04-19 05:52] LABS: GLUCOSE,POINT OF CARE 244 MG/DL (70-110)
[2017-04-19] MEDS ORDERED: SODIUM CHLORIDE 0.9% 1,000 ML IV ONE (06:45)
[2017-04-19] MEDS ORDERED: ACETAMINOPHEN 325 MG TABLET PO ONE (06:45)
[2017-04-19 07:20] LABS: HEMATOCRIT 44.4 % (36-46); HEMOGLOBIN 15.1 g/dL (12.0-16.0); MEAN CORPUSCULAR HEMOGLOBIN 31.5 pg (26.0-34.0); MEAN CORPUSCULAR HGB CONC 34.1 G/dL (31.0-37.0); MEAN CORPUSCULAR VOLUME 93 fL (80-100); PLATELET COUNT (AUTO) 227 K/uL (150-450)
[2017-04-19 07:40] LABS: BASOPHILS % (MANUAL) 1 % (0-2); LYMPHOCYTES % (MANUAL) 40 % (22-44); MONOCYTES % (MANUAL) 7 % (2-9); REACTIVE LYMPHOCYTES 19 % (0-0); SEGMENTED NEUTROPHILS % 33 % (40-70)
[2017-04-19 07:45] LABS: ALANINE AMINOTRANSFERASE 35 U/L (12-78); ALBUMIN 4.1 g/dL (3.4-5.0); ALKALINE PHOSPHATASE 102 U/L (46-116); ANION GAP 9 mmol/L (8-16); ASPARTATE AMINOTRANSFERASE 28 U/L (15-37); BILIRUBIN,TOTAL 0.5 mg/dL (0.1-1.0); CALCIUM, TOTAL 9.1 mg/dL (8.8-10.5); CARBON DIOXIDE 29 mmol/L (22-29); CHLORIDE 97 mmol/L (98-107); CREATININE 0.65 mg/dL (0.60-1.30); GLOMERULAR FILTR. RATE CALC > 60 mL/min (>60); GLUCOSE,RANDOM 218 mg/dL (70-110); POTASSIUM 3.5 mmol/L (3.5-5.1); SODIUM SERUM 135 mmol/L (136-145); TOTAL PROTEIN, SERUM 8.1 g/dL (6.4-8.2); UREA NITROGEN, BLOOD 7 mg/dL (7-18)
[2017-04-19 08:01] VITALS: BP 127/72
== END 2017-04-19 08:47 | disposition home or self-care (01) ==
LOC: EMS 05:40
DX: J40 Bronchitis, not specified as acute or chronic (principal); R51 Headache; J45.909 Unspecified asthma, uncomplicated; J44.9 Chronic obstructive pulmonary disease, unspecified; E11.9 Type 2 diabetes mellitus without complications; K21.9 Gastro-esophageal reflux disease without esophagitis; I10 Essential (primary) hypertension; F14.90 Cocaine use, unspecified, uncomplicated; F17.210 Nicotine dependence, cigarettes, uncomplicated; Z79.4 Long term (current) use of insulin; Z88.0 Allergy status to penicillin
CPT/HCPCS: 36415; 71045; 80053; 82962; 84484; 85025; 93005; 94644; 99285; J7030; J7611

== ENCOUNTER 2017-04-19 13:06 | Emergency (ER) | payer OTHER ==
[~2017-04-19] VITALS: Ht 162.6 cm; Wt 65.9 kg
[2017-04-19] MEDS ORDERED: KETOROLAC TROMETHAMINE 60 MG/2 ML VIAL IM ONE (15:15)
[2017-04-19 15:55] VITALS: BP 147/86
== END 2017-04-19 16:45 | disposition home or self-care (01) ==
LOC: EMS 13:08
DX: R51 Headache (principal); K21.9 Gastro-esophageal reflux disease without esophagitis; I10 Essential (primary) hypertension; E11.9 Type 2 diabetes mellitus without complications; J44.9 Chronic obstructive pulmonary disease, unspecified; Z79.4 Long term (current) use of insulin; Z88.0 Allergy status to penicillin
CPT/HCPCS: 96372; 99283; J1885

== ENCOUNTER 2017-05-08 10:26 | Emergency (ER) | payer OTHER ==
[~2017-05-08] VITALS: Ht 162.6 cm; Wt 68.0 kg
[2017-05-08 10:47] LABS: GLUCOSE,POINT OF CARE 229 MG/DL (70-110)
[2017-05-08] MEDS ORDERED: IPRATROPIUM BROMIDE 0.5 MG/2.5 ML NEB SOLUTION NEB ONE (11:45)
[2017-05-08] MEDS ORDERED: MethylPREDNISolone SOD SUCC 125 MG/2 ML VIAL IM ONE (11:45)
[2017-05-08] MEDS ORDERED: ALBUTEROL SULFATE 5 MG/ML 20 ML NEB SOLN [BULK] NEB ONE (11:45)
[2017-05-08] MEDS ORDERED: ACETAMINOPHEN 500 MG TABLET PO ONE (12:15)
[2017-05-08 15:05] VITALS: BP 150/93
== END 2017-05-08 15:15 | disposition home or self-care (01) ==
LOC: EMS 10:27
DX: J45.901 Unspecified asthma with (acute) exacerbation (principal); E11.9 Type 2 diabetes mellitus without complications; K21.9 Gastro-esophageal reflux disease without esophagitis; I10 Essential (primary) hypertension; K05.10 Chronic gingivitis, plaque induced; F17.210 Nicotine dependence, cigarettes, uncomplicated; Z71.6 Tobacco abuse counseling; Z79.4 Long term (current) use of insulin; Z79.899 Other long term (current) drug therapy; Z88.0 Allergy status to penicillin; Z88.1 Allergy status to other antibiotic agents
CPT/HCPCS: 82962; 94644; 96372; 99285; 99406; J2930

== ENCOUNTER 2017-05-10 11:20 | Emergency (ER) | payer OTHER ==
[~2017-05-10] VITALS: Ht 162.6 cm; Wt 68.2 kg
[2017-05-10 12:12] LABS: GLUCOSE,POINT OF CARE 235 MG/DL (70-110)
[2017-05-10] MEDS ORDERED: IPRATROPIUM BROMIDE 0.5 MG/2.5 ML NEB SOLUTION NEB ONE ×2 (12:15→16:45)
[2017-05-10] MEDS ORDERED: ALBUTEROL SULFATE 5 MG/ML 20 ML NEB SOLN [BULK] NEB ONE (12:15)
[2017-05-10] MEDS ORDERED: AMLO-511 PO (12:20)
[2017-05-10] MEDS ORDERED: MethylPREDNISolone SOD SUCC 125 MG/2 ML VIAL IVP ONE (15:00)
[2017-05-10 15:26] LABS: BASOPHILS % (AUTO) 1.3 % (0.0-2.0); HEMATOCRIT 44.5 % (36-46); HEMOGLOBIN 15.2 g/dL (12.0-16.0); LYMPHOCYTES # (AUTO) 2.4 K/uL (1.0-4.8); LYMPHOCYTES % (AUTO) 43.5 % (22.0-44.0); MEAN CORPUSCULAR HEMOGLOBIN 31.8 pg (26.0-34.0); MEAN CORPUSCULAR HGB CONC 34.1 G/dL (31.0-37.0); MEAN CORPUSCULAR VOLUME 93 fL (80-100); MONOCYTES # (AUTO) 0.4 K/uL (0.1-1.0); MONOCYTES % (AUTO) 7.7 % (2.0-9.0); NEUTROPHILS # (AUTO) 2.5 K/uL (1.8-7.7); NEUTROPHILS % (AUTO) 45.5 % (40.0-70.0); PLATELET COUNT (AUTO) 247 K/uL (150-450); RED BLOOD CELL COUNT(AUTO) 4.76 MIL/uL (4.00-5.20); RED CELL DISTRIBUTION WIDTH 13.7 % (11.5-14.5)
[2017-05-10 15:37] LABS: ANION GAP 8 mmol/L (8-16); CALCIUM, TOTAL 9.9 mg/dL (8.8-10.5); CARBON DIOXIDE 31 mmol/L (22-29); CHLORIDE 98 mmol/L (98-107); CREATININE 0.88 mg/dL (0.60-1.30); GLOMERULAR FILTR. RATE CALC > 60 mL/min (>60); GLUCOSE,RANDOM 343 mg/dL (70-110); POTASSIUM 4.2 mmol/L (3.5-5.1); SODIUM SERUM 137 mmol/L (136-145); UREA NITROGEN, BLOOD 17 mg/dL (7-18)
[2017-05-10 15:53] LABS: INR 0.9 (0.9-1.1); PROTHROMBIN TIME 9.8 SEC (9.4-11.6)
[2017-05-10 16:00] LABS: ALANINE AMINOTRANSFERASE 40 U/L (12-78); ALBUMIN 3.7 g/dL (3.4-5.0); ALKALINE PHOSPHATASE 122 U/L (46-116); ASPARTATE AMINOTRANSFERASE 35 U/L (15-37); BILIRUBIN,TOTAL 0.3 mg/dL (0.1-1.0); CREATINE KINASE MB 1.5 ng/mL (0-5); CREATINE KINASE, TOTAL 163 U/L (26-192); TOTAL PROTEIN, SERUM 7.5 g/dL (6.4-8.2)
[2017-05-10 16:04] LABS: B-TYPE NATRIURETIC PEPTIDE 33 pg/mL (0-100)
[2017-05-10] MEDS ORDERED: ALBUTEROL SULFATE 2.5 MG/0.5 ML NEB SOLUTION NEB ONE (16:45)
[2017-05-10 18:00] VITALS: BP 152/89
== END 2017-05-10 18:03 | disposition home or self-care (01) ==
LOC: EMS 11:23
DX: J44.1 Chronic obstructive pulmonary disease with (acute) exacerbation (principal); E11.9 Type 2 diabetes mellitus without complications; F17.210 Nicotine dependence, cigarettes, uncomplicated; I10 Essential (primary) hypertension; K21.9 Gastro-esophageal reflux disease without esophagitis; F14.10 Cocaine abuse, uncomplicated; Z79.4 Long term (current) use of insulin; Z88.0 Allergy status to penicillin
CPT/HCPCS: 36415; 71045; 80053; 82550; 82553; 82962; 83880; 84484; 85025; 85610; 85730; 93005; 94644; 96374; 99285; J2930; J7611; J7613; 94640

== ENCOUNTER 2017-05-12 09:13 | Emergency (ER) | payer OTHER ==
[~2017-05-12] VITALS: Ht 162.6 cm; Wt 69.0 kg
[~2017-05-12 09:13] MED LIST changes: +AMLO-511 PO; -AMLO2.5T2 PO
[2017-05-12 09:32] LABS: GLUCOSE,POINT OF CARE 222 MG/DL (70-110)
[2017-05-12] MEDS ORDERED: IPRATROPIUM BROMIDE 0.5 MG/2.5 ML NEB SOLUTION NEB ONE (10:30)
[2017-05-12] MEDS ORDERED: LEVALBUTEROL HCL 1.25 MG/0.5 ML NEB SOLUTION NEB ONE (10:30)
[2017-05-12 12:55] VITALS: BP 142/87
== END 2017-05-12 13:37 | disposition home or self-care (01) ==
LOC: EMS 09:14
DX: J45.901 Unspecified asthma with (acute) exacerbation (principal); F17.210 Nicotine dependence, cigarettes, uncomplicated; E11.9 Type 2 diabetes mellitus without complications; K21.9 Gastro-esophageal reflux disease without esophagitis; I10 Essential (primary) hypertension; Z88.0 Allergy status to penicillin; Z79.899 Other long term (current) drug therapy
CPT/HCPCS: 71045; 82962; 94644; 99285; Z7610

== ENCOUNTER 2017-05-19 13:05 | Emergency (ER) | payer OTHER ==
[~2017-05-19] VITALS: Ht 165.1 cm; Wt 68.2 kg
[2017-05-19 13:22] LABS: GLUCOSE,POINT OF CARE 232 MG/DL (70-110)
[2017-05-19] MEDS ORDERED: ALBUTEROL SULFATE 5 MG/ML 20 ML NEB SOLN [BULK] NEB ONE (14:00)
[2017-05-19] MEDS ORDERED: IPRATROPIUM BROMIDE 0.5 MG/2.5 ML NEB SOLUTION NEB ONE (14:00)
[2017-05-19] MEDS ORDERED: MethylPREDNISolone SOD SUCC 125 MG/2 ML VIAL IM ONE (15:15)
[2017-05-19] MEDS ORDERED: DEXAMETHASONE SOD PHOS 4 MG/ML 5 ML VIAL IM ONE (16:00)
[2017-05-19 16:30] VITALS: BP 134/73
[2017-05-19] MEDS ORDERED: ALBUTEROL SULFATE 2.5 MG/0.5 ML NEB SOLUTION NEB ONE (16:51)
== END 2017-05-19 17:28 | disposition home or self-care (01) ==
LOC: EMS 13:07
DX: J44.9 Chronic obstructive pulmonary disease, unspecified (principal); E11.9 Type 2 diabetes mellitus without complications; I10 Essential (primary) hypertension; K21.9 Gastro-esophageal reflux disease without esophagitis; F17.210 Nicotine dependence, cigarettes, uncomplicated; F14.10 Cocaine abuse, uncomplicated; Z79.4 Long term (current) use of insulin; Z88.0 Allergy status to penicillin; Z79.899 Other long term (current) drug therapy
CPT/HCPCS: 71045; 82962; 94644; 96372; 99285; J1100; J7611; 94640; J2930

== ENCOUNTER 2017-06-12 08:17 | Emergency (ER) | payer OTHER ==
[~2017-06-12] VITALS: Ht 162.6 cm; Wt 68.2 kg
[2017-06-12 08:27] LABS: GLUCOSE,POINT OF CARE 425 MG/DL (70-110)
[2017-06-12] MEDS ORDERED: IPRATROPIUM BROMIDE 0.5 MG/2.5 ML NEB SOLUTION NEB ONE (08:45)
[2017-06-12] MEDS ORDERED: SODIUM CHLORIDE 0.9% 1,000 ML IV ONE (08:45)
[2017-06-12] MEDS ORDERED: INSULIN REGULAR, HUMAN 100 UNITS/ML IVP ONE (08:45)
[2017-06-12] MEDS ORDERED: ALBUTEROL SULFATE 5 MG/ML 20 ML NEB SOLN [BULK] NEB ONE (08:45)
[2017-06-12 09:32] LABS: HEMATOCRIT 45.1 % (36-46); HEMOGLOBIN 15.2 g/dL (12.0-16.0); LYMPHOCYTES # (AUTO) 2.2 K/uL (1.0-4.8); MEAN CORPUSCULAR HEMOGLOBIN 31.4 pg (26.0-34.0); MEAN CORPUSCULAR HGB CONC 33.6 G/dL (31.0-37.0); MEAN CORPUSCULAR VOLUME 93 fL (80-100); MONOCYTES # (AUTO) 0.5 K/uL (0.1-1.0); MONOCYTES % (AUTO) 9.9 % (2.0-9.0); NEUTROPHILS # (AUTO) 1.9 K/uL (1.8-7.7); NEUTROPHILS % (AUTO) 41.1 % (40.0-70.0); PLATELET COUNT (AUTO) 240 K/uL (150-450); RED BLOOD CELL COUNT(AUTO) 4.83 MIL/uL (4.00-5.20); RED CELL DISTRIBUTION WIDTH 13.6 % (11.5-14.5)
[2017-06-12 09:42] LABS: ANION GAP 6 mmol/L (8-16); CALCIUM, TOTAL 8.9 mg/dL (8.8-10.5); CARBON DIOXIDE 30 mmol/L (22-29); CHLORIDE 97 mmol/L (98-107); CREATININE 0.98 mg/dL (0.60-1.30); GLOMERULAR FILTR. RATE CALC > 60 mL/min (>60); GLUCOSE,RANDOM 346 mg/dL (70-110); SODIUM SERUM 133 mmol/L (136-145); UREA NITROGEN, BLOOD 13 mg/dL (7-18)
[2017-06-12] MEDS ORDERED: DEXAMETHASONE SOD PHOS 4 MG/ML 5 ML VIAL IVP ONE (09:45)
[2017-06-12 09:49] LABS: ALANINE AMINOTRANSFERASE 27 U/L (12-78); ALBUMIN 3.5 g/dL (3.4-5.0); ALKALINE PHOSPHATASE 150 U/L (46-116); ASPARTATE AMINOTRANSFERASE 19 U/L (15-37); BILIRUBIN,TOTAL 0.3 mg/dL (0.1-1.0); TOTAL PROTEIN, SERUM 7.3 g/dL (6.4-8.2)
[2017-06-12 11:17] LABS: GLUCOSE,POINT OF CARE 128 MG/DL (70-110)
[2017-06-12 11:34] VITALS: BP 132/80
[2017-06-12] MEDS ORDERED: ALBUTEROL SULFATE HFA 90 MCG/PUFF 8 GM INHALER IH ONE (11:45)
== END 2017-06-12 12:01 | disposition home or self-care (01) ==
LOC: EMS 08:18
DX: J44.1 Chronic obstructive pulmonary disease with (acute) exacerbation (principal); J45.909 Unspecified asthma, uncomplicated; E11.65 Type 2 diabetes mellitus with hyperglycemia; F31.9 Bipolar disorder, unspecified; I10 Essential (primary) hypertension; K21.9 Gastro-esophageal reflux disease without esophagitis; F17.210 Nicotine dependence, cigarettes, uncomplicated; F14.90 Cocaine use, unspecified, uncomplicated; Z79.4 Long term (current) use of insulin; Z88.0 Allergy status to penicillin; Z88.1 Allergy status to other antibiotic agents
CPT/HCPCS: 36415; 80053; 82948; 82962; 85025; 93005; 94644; 96361; 96374; 96375; 99285; 99406; J1100; J1815; J7030; J3535

== ENCOUNTER 2017-06-26 08:35 | Emergency (ER) | payer OTHER ==
[~2017-06-26] VITALS: Ht 162.6 cm; Wt 68.2 kg
[2017-06-26 08:52] LABS: GLUCOSE,POINT OF CARE 212 MG/DL (70-110)
[2017-06-26] MEDS ORDERED: PredniSONE 20 MG TABLET PO ONE (10:00)
[2017-06-26] MEDS ORDERED: IPRATROPIUM BROMIDE 0.5 MG/2.5 ML NEB SOLUTION NEB ONE (10:00)
[2017-06-26] MEDS ORDERED: ALBUTEROL SULFATE 5 MG/ML 20 ML NEB SOLN [BULK] NEB ONE (10:00)
[2017-06-26] MEDS ORDERED: ALBUTEROL SULFATE HFA 90 MCG/PUFF 8 GM INHALER IH ONE (11:30)
[2017-06-26 13:00] VITALS: BP 142/76
[2017-07-01] MEDS ORDERED: PRED20 PO (11:12)
== END 2017-06-26 13:17 | disposition home or self-care (01) ==
LOC: EMS 08:43
DX: J45.901 Unspecified asthma with (acute) exacerbation (principal); J44.1 Chronic obstructive pulmonary disease with (acute) exacerbation; E11.9 Type 2 diabetes mellitus without complications; K21.9 Gastro-esophageal reflux disease without esophagitis; I10 Essential (primary) hypertension; F17.210 Nicotine dependence, cigarettes, uncomplicated; F14.90 Cocaine use, unspecified, uncomplicated; Z79.4 Long term (current) use of insulin; Z88.0 Allergy status to penicillin
CPT/HCPCS: 82962; 94644; 99285; J7512; J7611; J3535

== ENCOUNTER 2017-06-28 08:57 | Emergency (ER) | payer OTHER ==
[~2017-06-28] VITALS: Ht 162.6 cm; Wt 68.2 kg
[~2017-06-28 08:57] MED LIST changes: -NICO1PAT49 TD
[2017-06-28] MEDS ORDERED: SODIUM CHLORIDE 0.9% 1,000 ML IV ONE (11:07)
[2017-06-28] MEDS ORDERED: IPRATROPIUM BROMIDE 0.5 MG/2.5 ML NEB SOLUTION NEB ONE ×2 (11:15→16:00)
[2017-06-28] MEDS ORDERED: PredniSONE 20 MG TABLET PO ONE (11:15)
[2017-06-28] MEDS ORDERED: ALBUTEROL SULFATE 2.5 MG/0.5 ML NEB SOLUTION NEB ONE ×2 (11:15→16:00)
[2017-06-28] MEDS ORDERED: ONDANSETRON HCL 4 MG/2 ML VIAL IVP ONE (11:15)
[2017-06-28 11:35] LABS: BASOPHILS % (AUTO) 0.8 % (0.0-2.0); EOSINOPHILS % (AUTO) 0.7 % (1.0-6.0); HEMATOCRIT 45.7 % (36-46); HEMOGLOBIN 15.5 g/dL (12.0-16.0); LYMPHOCYTES # (AUTO) 2.9 K/uL (1.0-4.8); LYMPHOCYTES % (AUTO) 38.6 % (22.0-44.0); MEAN CORPUSCULAR HEMOGLOBIN 31.4 pg (26.0-34.0); MEAN CORPUSCULAR HGB CONC 33.9 G/dL (31.0-37.0); MEAN CORPUSCULAR VOLUME 93 fL (80-100); MONOCYTES # (AUTO) 0.4 K/uL (0.1-1.0); MONOCYTES % (AUTO) 5.7 % (2.0-9.0); NEUTROPHILS % (AUTO) 54.2 % (40.0-70.0); PLATELET COUNT (AUTO) 268 K/uL (150-450); RED BLOOD CELL COUNT(AUTO) 4.93 MIL/uL (4.00-5.20); RED CELL DISTRIBUTION WIDTH 13.4 % (11.5-14.5)
[2017-06-28 11:44] LABS: ANION GAP 6 mmol/L (8-16); CALCIUM, TOTAL 10.5 mg/dL (8.8-10.5); CARBON DIOXIDE 32 mmol/L (22-29); CHLORIDE 98 mmol/L (98-107); CREATININE 1.04 mg/dL (0.60-1.30); GLOMERULAR FILTR. RATE CALC > 60 mL/min (>60); GLUCOSE,RANDOM 152 mg/dL (70-110); POTASSIUM 3.7 mmol/L (3.5-5.1); SODIUM SERUM 136 mmol/L (136-145); UREA NITROGEN, BLOOD 14 mg/dL (7-18)
[2017-06-28 11:51] LABS: ALANINE AMINOTRANSFERASE 34 U/L (12-78); ALBUMIN 4.1 g/dL (3.4-5.0); ALKALINE PHOSPHATASE 136 U/L (46-116); ASPARTATE AMINOTRANSFERASE 16 U/L (15-37); BILIRUBIN,TOTAL 0.5 mg/dL (0.1-1.0); LIPASE 186 U/L (73-393); TOTAL PROTEIN, SERUM 8.7 g/dL (6.4-8.2)
[2017-06-28] MEDS ORDERED: ACETAMINOPHEN/CODEINE 300-30 MG TABLET PO ONE (16:00)
[2017-06-28 16:57] VITALS: BP 161/101
[2017-06-29 11:17] LABS: GLUCOSE,POINT OF CARE 245 MG/DL (70-110)
[2017-07-01] MEDS ORDERED: PRED20 PO (11:12)
[2017-07-02] MEDS ORDERED: ATOR40TA28 PO (13:12)
[2017-07-02] MEDS ORDERED: TICA90TA PO (13:12)
[2017-07-02] MEDS ORDERED: CIPR-278 PO (13:20)
== END 2017-06-28 17:20 | disposition home or self-care (01) ==
LOC: EMS 08:59
DX: R11.2 Nausea with vomiting, unspecified (principal); R19.7 Diarrhea, unspecified; J45.901 Unspecified asthma with (acute) exacerbation; E86.0 Dehydration; J44.9 Chronic obstructive pulmonary disease, unspecified; I10 Essential (primary) hypertension; E11.9 Type 2 diabetes mellitus without complications; K21.9 Gastro-esophageal reflux disease without esophagitis; F14.90 Cocaine use, unspecified, uncomplicated; F17.210 Nicotine dependence, cigarettes, uncomplicated; Z79.4 Long term (current) use of insulin; Z88.0 Allergy status to penicillin; Z88.1 Allergy status to other antibiotic agents
CPT/HCPCS: 80053; 82962; 83690; 85025; 94640; 96361; 96374; 99284; 99406; J2405; J7030; J7512; J7613

== ENCOUNTER 2017-07-15 07:25 | Emergency (ER) | payer OTHER ==
[~2017-07-15] VITALS: Ht 162.6 cm; Wt 68.2 kg
[~2017-07-15 07:25] MED LIST changes: -INSNOV SQ; -METF500T4 PO; +METF500T6 PO; +PRED20 PO
[2017-07-15 08:07] LABS: GLUCOSE,POINT OF CARE 410 MG/DL (70-110)
[2017-07-15] MEDS ORDERED: 0.9% SODIUM CHLORIDE 5 ML NEB SOLUTION NEB ONE (08:13)
[2017-07-15] MEDS ORDERED: SODIUM CHLORIDE 0.9% 1,000 ML IV ONE (08:15)
[2017-07-15] MEDS ORDERED: IPRATROPIUM BROMIDE 0.5 MG/2.5 ML NEB SOLUTION NEB ONE ×2 (08:15→11:15)
[2017-07-15] MEDS ORDERED: ALBUTEROL SULFATE 5 MG/ML 20 ML NEB SOLN [BULK] NEB ONE ×2 (08:15→11:15)
[2017-07-15] MEDS ORDERED: INSULIN REGULAR, HUMAN 100 UNITS/ML IVP ONE (08:15)
[2017-07-15 08:47] LABS: ANION GAP 6 mmol/L (8-16); CALCIUM, TOTAL 9.2 mg/dL (8.8-10.5); CARBON DIOXIDE 29 mmol/L (22-29); CHLORIDE 96 mmol/L (98-107); CREATININE 1.08 mg/dL (0.60-1.30); GLOMERULAR FILTR. RATE CALC > 60 mL/min (>60); POTASSIUM 4.5 mmol/L (3.5-5.1); SODIUM SERUM 131 mmol/L (136-145); UREA NITROGEN, BLOOD 13 mg/dL (7-18)
[2017-07-15 08:49] LABS: GLUCOSE,RANDOM 561 mg/dL (70-110)
[2017-07-15 09:52] LABS: GLUCOSE,POINT OF CARE 109 MG/DL (70-110)
[2017-07-15] MEDS ORDERED: PredniSONE 20 MG TABLET PO ONE (11:15)
[2017-07-15] MEDS ORDERED: ALBUTEROL SULFATE HFA 90 MCG/PUFF 8 GM INHALER IH ONE (13:15)
[2017-07-15 14:15] VITALS: BP 146/81
== END 2017-07-15 14:20 | disposition home or self-care (01) ==
LOC: EMS 07:26
DX: J44.1 Chronic obstructive pulmonary disease with (acute) exacerbation (principal); E11.65 Type 2 diabetes mellitus with hyperglycemia; F31.9 Bipolar disorder, unspecified; I10 Essential (primary) hypertension; K21.9 Gastro-esophageal reflux disease without esophagitis; F17.210 Nicotine dependence, cigarettes, uncomplicated; F14.10 Cocaine abuse, uncomplicated; Z79.4 Long term (current) use of insulin; Z88.0 Allergy status to penicillin; Z79.899 Other long term (current) drug therapy
CPT/HCPCS: 36415; 71045; 80048; 82948; 82962; 94644; 96361; 96374; 99285; 99406; J1815; J7030; J7512; J7611; J3535

== ENCOUNTER 2017-07-19 00:58 | Emergency (ER) | payer OTHER ==
[~2017-07-19] VITALS: Ht 162.6 cm; Wt 68.2 kg
[2017-07-19 01:07] LABS: GLUCOSE,POINT OF CARE 202 MG/DL (70-110)
[2017-07-19] MEDS ORDERED: 0.9% SODIUM CHLORIDE 5 ML NEB SOLUTION NEB ONE (01:13)
[2017-07-19] MEDS ORDERED: IPRATROPIUM BROMIDE 0.5 MG/2.5 ML NEB SOLUTION NEB ONE (01:15)
[2017-07-19] MEDS ORDERED: ALBUTEROL SULFATE 2.5 MG/0.5 ML NEB SOLUTION NEB ONE (01:15)
[2017-07-19 04:58] VITALS: BP 149/90
== END 2017-07-19 05:00 | disposition home or self-care (01) ==
LOC: EMS 00:59
DX: J45.901 Unspecified asthma with (acute) exacerbation (principal); J44.1 Chronic obstructive pulmonary disease with (acute) exacerbation; F31.9 Bipolar disorder, unspecified; F17.210 Nicotine dependence, cigarettes, uncomplicated; E11.9 Type 2 diabetes mellitus without complications; K21.9 Gastro-esophageal reflux disease without esophagitis; I10 Essential (primary) hypertension; F14.90 Cocaine use, unspecified, uncomplicated; Z79.4 Long term (current) use of insulin; Z88.0 Allergy status to penicillin
CPT/HCPCS: 82962; 94640; 99283; 99406; J7613

== ENCOUNTER 2017-07-19 06:45 | Emergency (ER) | payer OTHER ==
[~2017-07-19] VITALS: Ht 167.6 cm; Wt 63.6 kg
[2017-07-19] MEDS ORDERED: IPRATROPIUM BROMIDE 0.5 MG/2.5 ML NEB SOLUTION NEB ONE (07:15)
[2017-07-19] MEDS ORDERED: ALBUTEROL SULFATE 2.5 MG/0.5 ML NEB SOLUTION NEB ONE (07:15)
[2017-07-19] MEDS ORDERED: MethylPREDNISolone SOD SUCC 125 MG/2 ML VIAL IVP ONE (07:30)
[2017-07-19 08:02] LABS: BASOPHILS % (AUTO) 1.3 % (0.0-2.0); EOSINOPHILS % (AUTO) 1.7 % (1.0-6.0); HEMATOCRIT 40.5 % (36-46); HEMOGLOBIN 13.9 g/dL (12.0-16.0); LYMPHOCYTES # (AUTO) 1.2 K/uL (1.0-4.8); LYMPHOCYTES % (AUTO) 25.8 % (22.0-44.0); MEAN CORPUSCULAR HEMOGLOBIN 31.8 pg (26.0-34.0); MEAN CORPUSCULAR HGB CONC 34.2 G/dL (31.0-37.0); MEAN CORPUSCULAR VOLUME 93 fL (80-100); MONOCYTES # (AUTO) 0.5 K/uL (0.1-1.0); MONOCYTES % (AUTO) 9.6 % (2.0-9.0); NEUTROPHILS # (AUTO) 2.9 K/uL (1.8-7.7); NEUTROPHILS % (AUTO) 61.6 % (40.0-70.0); PLATELET COUNT (AUTO) 235 K/uL (150-450); RED BLOOD CELL COUNT(AUTO) 4.36 MIL/uL (4.00-5.20); RED CELL DISTRIBUTION WIDTH 13.6 % (11.5-14.5)
[2017-07-19 08:14] LABS: ALANINE AMINOTRANSFERASE 37 U/L (12-78); ALBUMIN 3.4 g/dL (3.4-5.0); ALKALINE PHOSPHATASE 206 U/L (46-116); ASPARTATE AMINOTRANSFERASE 25 U/L (15-37); BILIRUBIN,TOTAL 0.2 mg/dL (0.1-1.0); CARBON DIOXIDE 30 mmol/L (22-29); CREATININE 0.98 mg/dL (0.60-1.30); GLOMERULAR FILTR. RATE CALC > 60 mL/min (>60); TOTAL PROTEIN, SERUM 7.1 g/dL (6.4-8.2); UREA NITROGEN, BLOOD 11 mg/dL (7-18)
[2017-07-19 08:23] LABS: ANION GAP 5 mmol/L (8-16); CHLORIDE 96 mmol/L (98-107); POTASSIUM 4.3 mmol/L (3.5-5.1); SODIUM SERUM 131 mmol/L (136-145)
[2017-07-19 08:29] LABS: GLUCOSE,RANDOM 439 mg/dL (70-110)
[2017-07-19] MEDS ORDERED: INSULIN REGULAR, HUMAN 100 UNITS/ML IVP ONE (08:30)
[2017-07-19 09:42] LABS: GLUCOSE,POINT OF CARE 279 MG/DL (70-110)
[2017-07-19] MEDS ORDERED: ACETAMINOPHEN 500 MG TABLET PO ONE (09:45)
[2017-07-19 10:08] VITALS: BP 145/80
== END 2017-07-19 10:24 | disposition home or self-care (01) ==
LOC: EMS 06:45
DX: J45.909 Unspecified asthma, uncomplicated (principal); E11.9 Type 2 diabetes mellitus without complications; J44.9 Chronic obstructive pulmonary disease, unspecified; K21.9 Gastro-esophageal reflux disease without esophagitis; F17.210 Nicotine dependence, cigarettes, uncomplicated; F14.90 Cocaine use, unspecified, uncomplicated; Z79.4 Long term (current) use of insulin; Z88.0 Allergy status to penicillin
CPT/HCPCS: 36415; 71046; 80053; 82962; 85025; 94640; 96374; 96375; 99285; 99406; J1815; J2930; J7613

== ENCOUNTER 2017-07-26 11:07 | Emergency (ER) | payer OTHER ==
[~2017-07-26] VITALS: Ht 162.6 cm; Wt 68.2 kg
[2017-07-26 11:18] LABS: GLUCOSE,POINT OF CARE 305 MG/DL (70-110)
[2017-07-26] MEDS ORDERED: DiphenhydrAMINE HCL 25 MG CAPSULE PO ONE (11:30)
[2017-07-26 11:42] LABS: BASOPHILS % (AUTO) 0.9 % (0.0-2.0); EOSINOPHILS % (AUTO) 1.5 % (1.0-6.0); HEMATOCRIT 41.1 % (36-46); HEMOGLOBIN 14.3 g/dL (12.0-16.0); MEAN CORPUSCULAR HGB CONC 34.7 G/dL (31.0-37.0); MEAN CORPUSCULAR VOLUME 92 fL (80-100); MONOCYTES # (AUTO) 0.3 K/uL (0.1-1.0); MONOCYTES % (AUTO) 5.6 % (2.0-9.0); NEUTROPHILS # (AUTO) 2.5 K/uL (1.8-7.7); PLATELET COUNT (AUTO) 232 K/uL (150-450); RED BLOOD CELL COUNT(AUTO) 4.46 MIL/uL (4.00-5.20); RED CELL DISTRIBUTION WIDTH 13.4 % (11.5-14.5)
[2017-07-26 12:02] LABS: ANION GAP 9 mmol/L (8-16); CALCIUM, TOTAL 8.6 mg/dL (8.8-10.5); CARBON DIOXIDE 26 mmol/L (22-29); CHLORIDE 97 mmol/L (98-107); CREATININE 0.92 mg/dL (0.60-1.30); GLOMERULAR FILTR. RATE CALC > 60 mL/min (>60); GLUCOSE,RANDOM 287 mg/dL (70-110); POTASSIUM 4.1 mmol/L (3.5-5.1); SODIUM SERUM 132 mmol/L (136-145); UREA NITROGEN, BLOOD 15 mg/dL (7-18)
[2017-07-26 12:33] VITALS: BP 145/95
== END 2017-07-26 12:37 | disposition home or self-care (01) ==
LOC: EMS 11:09
DX: J32.9 Chronic sinusitis, unspecified (principal); F25.9 Schizoaffective disorder, unspecified; E11.9 Type 2 diabetes mellitus without complications; F31.9 Bipolar disorder, unspecified; J45.909 Unspecified asthma, uncomplicated; J44.9 Chronic obstructive pulmonary disease, unspecified; K21.9 Gastro-esophageal reflux disease without esophagitis; I10 Essential (primary) hypertension; F14.90 Cocaine use, unspecified, uncomplicated; F17.210 Nicotine dependence, cigarettes, uncomplicated; Z79.4 Long term (current) use of insulin; Z88.0 Allergy status to penicillin
CPT/HCPCS: 99284; 99406

== ENCOUNTER 2017-07-28 22:44 | Emergency (ER) | payer OTHER ==
[~2017-07-28] VITALS: Ht 162.6 cm; Wt 72.0 kg
[~2017-07-28 22:44] MED LIST changes: -PRED20 PO
[2017-07-28 23:08] LABS: GLUCOSE,POINT OF CARE 263 MG/DL (70-110)
[2017-07-29] MEDS ORDERED: ALBUTEROL SULFATE 5 MG/ML 20 ML NEB SOLN [BULK] NEB ONE (01:30)
[2017-07-29] MEDS ORDERED: IPRATROPIUM BROMIDE 0.5 MG/2.5 ML NEB SOLUTION NEB ONE (01:30)
[2017-07-29] MEDS ORDERED: MethylPREDNISolone SOD SUCC 125 MG/2 ML VIAL IVP ONE (01:30)
[2017-07-29 01:57] LABS: BASOPHILS % (AUTO) 0.6 % (0.0-2.0); HEMATOCRIT 41.8 % (36-46); HEMOGLOBIN 14.7 g/dL (12.0-16.0); LYMPHOCYTES # (AUTO) 2.3 K/uL (1.0-4.8); LYMPHOCYTES % (AUTO) 37.5 % (22.0-44.0); MEAN CORPUSCULAR HEMOGLOBIN 32.5 pg (26.0-34.0); MEAN CORPUSCULAR HGB CONC 35.1 G/dL (31.0-37.0); MEAN CORPUSCULAR VOLUME 93 fL (80-100); MONOCYTES # (AUTO) 0.5 K/uL (0.1-1.0); MONOCYTES % (AUTO) 8.2 % (2.0-9.0); NEUTROPHILS # (AUTO) 3.2 K/uL (1.8-7.7); NEUTROPHILS % (AUTO) 51.7 % (40.0-70.0); PLATELET COUNT (AUTO) 211 K/uL (150-450); RED BLOOD CELL COUNT(AUTO) 4.53 MIL/uL (4.00-5.20); RED CELL DISTRIBUTION WIDTH 13.7 % (11.5-14.5)
[2017-07-29] MEDS ORDERED: 0.9% SODIUM CHLORIDE 15 ML NEB SOLUTION NEB ONE (02:03)
[2017-07-29 02:04] LABS: ANION GAP 6 mmol/L (8-16); CALCIUM, TOTAL 9.1 mg/dL (8.8-10.5); CARBON DIOXIDE 30 mmol/L (22-29); CHLORIDE 97 mmol/L (98-107); CREATININE 0.84 mg/dL (0.60-1.30); GLOMERULAR FILTR. RATE CALC > 60 mL/min (>60); GLUCOSE,RANDOM 233 mg/dL (70-110); POTASSIUM 3.8 mmol/L (3.5-5.1); SODIUM SERUM 133 mmol/L (136-145); UREA NITROGEN, BLOOD 10 mg/dL (7-18)
[2017-07-29 02:11] LABS: ALANINE AMINOTRANSFERASE 29 U/L (12-78); ALBUMIN 3.7 g/dL (3.4-5.0); ALKALINE PHOSPHATASE 82 U/L (46-116); ASPARTATE AMINOTRANSFERASE 16 U/L (15-37); BILIRUBIN,TOTAL 0.7 mg/dL (0.1-1.0); CREATINE KINASE, TOTAL 69 U/L (26-192); TOTAL PROTEIN, SERUM 7.7 g/dL (6.4-8.2)
[2017-07-29 04:50] VITALS: BP 123/70
== END 2017-07-29 05:30 | disposition home or self-care (01) ==
LOC: EMS 22:46
DX: J44.1 Chronic obstructive pulmonary disease with (acute) exacerbation (principal); I10 Essential (primary) hypertension; K21.9 Gastro-esophageal reflux disease without esophagitis; F17.210 Nicotine dependence, cigarettes, uncomplicated; F14.10 Cocaine abuse, uncomplicated; E11.9 Type 2 diabetes mellitus without complications; F31.9 Bipolar disorder, unspecified; Z79.4 Long term (current) use of insulin; Z88.0 Allergy status to penicillin
CPT/HCPCS: 36415; 71045; 80053; 82550; 82962; 84484; 85025; 93005; 94640; 94644; 96374; 99285; G0480; J2930; J7611

== ENCOUNTER 2017-08-02 07:52 | Inpatient (IN) | payer OTHER ==
[~2017-08-02] VITALS: Ht 162.6 cm; Wt 68.2 kg
[2017-08-02 08:07] LABS: GLUCOSE,POINT OF CARE 292 MG/DL (70-110)
[2017-08-02] MEDS ORDERED: KETOROLAC TROMETHAMINE 30 MG/ML VIAL IVP ONE (09:45)
[2017-08-02] MEDS ORDERED: MethylPREDNISolone SOD SUCC 125 MG/2 ML VIAL IVP ONE (09:45)
[2017-08-02] MEDS ORDERED: IPRATROPIUM BROMIDE 0.5 MG/2.5 ML NEB SOLUTION NEB ONE ×2 (09:45→13:15)
[2017-08-02] MEDS ORDERED: CefTRIAXone SODIUM 1 GM in DEXTROSE 5%-WATER 10 ML IV ONE (09:45)
[2017-08-02] MEDS ORDERED: ALBUTEROL SULFATE 2.5 MG/0.5 ML NEB SOLUTION NEB ONE (09:45)
[2017-08-02 09:58] LABS: BASOPHILS % (AUTO) 0.5 % (0.0-2.0); HEMATOCRIT 41.9 % (36-46); HEMOGLOBIN 14.6 g/dL (12.0-16.0); LYMPHOCYTES # (AUTO) 1.6 K/uL (1.0-4.8); LYMPHOCYTES % (AUTO) 22.3 % (22.0-44.0); MEAN CORPUSCULAR HEMOGLOBIN 32.3 pg (26.0-34.0); MEAN CORPUSCULAR HGB CONC 34.8 G/dL (31.0-37.0); MEAN CORPUSCULAR VOLUME 93 fL (80-100); MONOCYTES # (AUTO) 0.5 K/uL (0.1-1.0); MONOCYTES % (AUTO) 6.3 % (2.0-9.0); NEUTROPHILS # (AUTO) 5.1 K/uL (1.8-7.7); NEUTROPHILS % (AUTO) 69.9 % (40.0-70.0); PLATELET COUNT (AUTO) 248 K/uL (150-450); RED BLOOD CELL COUNT(AUTO) 4.51 MIL/uL (4.00-5.20); RED CELL DISTRIBUTION WIDTH 13.7 % (11.5-14.5)
[2017-08-02 10:11] LABS: ANION GAP 7 mmol/L (8-16); CALCIUM, TOTAL 9.2 mg/dL (8.8-10.5); CARBON DIOXIDE 28 mmol/L (22-29); CHLORIDE 96 mmol/L (98-107); GLOMERULAR FILTR. RATE CALC > 60 mL/min (>60); GLUCOSE,RANDOM 307 mg/dL (70-110); POTASSIUM 3.9 mmol/L (3.5-5.1); SODIUM SERUM 131 mmol/L (136-145); UREA NITROGEN, BLOOD 11 mg/dL (7-18)
[2017-08-02 10:17] LABS: ALANINE AMINOTRANSFERASE 24 U/L (12-78); ALBUMIN 3.5 g/dL (3.4-5.0); ALKALINE PHOSPHATASE 118 U/L (46-116); ASPARTATE AMINOTRANSFERASE 16 U/L (15-37); BILIRUBIN,TOTAL 0.6 mg/dL (0.1-1.0)
[2017-08-02 10:24] LABS: B-TYPE NATRIURETIC PEPTIDE 14 pg/mL (0-100)
[2017-08-02] MEDS ORDERED: ONDANSETRON HCL 4 MG/2 ML VIAL IVP ONE (12:00)
[2017-08-02] MEDS ORDERED: ALBUTEROL SULFATE 5 MG/ML 20 ML NEB SOLN [BULK] NEB ONE (13:15)
[2017-08-02] MEDS ORDERED: AZITHROMYCIN 500 MG/NS 250 ML IV ONE (14:00)
[2017-08-02 15:19] VITALS: BP 148/98
[2017-08-02] MEDS ORDERED: INSULIN LISPRO 100 UNITS/ML SQ PRN ×2 (16:45→17:15)
[2017-08-02] MEDS ORDERED: DEXTROSE 50%-WATER 25 GM/50 ML SYRINGE IVP PRN ×2 (16:45→17:30)
[2017-08-02] MEDS ORDERED: ALBUTEROL SULFATE 2.5 MG/0.5 ML NEB SOLUTION NEB PRN ×2 (17:00)
[2017-08-02] MEDS ORDERED: ACETAMINOPHEN/CODEINE 300-30 MG TABLET PO PRN (17:00)
[2017-08-02] MEDS ORDERED: MAGNESIUM HYDROXIDE SUSPENSION 30 ML UDCUP PO PRN (17:00)
[2017-08-02] MEDS ORDERED: ZOLPIDEM TARTRATE 5 MG TABLET PO PRN (17:00)
[2017-08-02] MEDS ORDERED: ACETAMINOPHEN 325 MG TABLET PO PRN (17:00)
[2017-08-02] MEDS ORDERED: OxyCODONE HCL/ACETAMINOPHEN 5-325 MG TABLET PO PRN (17:00)
[2017-08-02] MEDS ORDERED: HYDROCODONE/ACETAMINOPHEN 5-325 MG TABLET PO PRN (17:00)
[2017-08-02] MEDS ORDERED: IPRATROPIUM BROMIDE 0.5 MG/2.5 ML NEB SOLUTION NEB PRN (17:00)
[2017-08-02] MEDS ORDERED: GLUCAGON,HUMAN RECOMBINANT 1 MG VIAL IM PRN (17:15)
[2017-08-02 17:27] LABS: GLUCOMETER DEV NAME(LOC) 6N 1E; GLUCOSE,POINT OF CARE > 600 MG/DL (70-110)
[2017-08-02] MEDS ORDERED: INSULIN GLARGINE,HUM.REC.ANLOG 100 UNITS/ML SQ ONE ×2 (17:30→21:00)
[2017-08-02] MEDS: POTASSIUM CHLORIDE IV SCH ×2 (17:48→17:52)
[2017-08-02] MEDS: SODIUM CHLORIDE 0.9% IV SCH ×2 (17:48→17:52)
[2017-08-02] MEDS: AmLODIPine BESYLATE 5 MG TABLET PO SCH (17:49)
[2017-08-02] MEDS: INSULIN LISPRO 100 UNITS/ML SQ PRN ×2 (17:51→19:52)
[2017-08-02] MEDS: MethylPREDNISolone SOD SUCC 40 MG/ML VIAL IVP SCH (18:01)
[2017-08-02 18:07] LABS: ALBUMIN 3.4 g/dL (3.4-5.0); BILIRUBIN,TOTAL 0.4 mg/dL (0.1-1.0); CALCIUM, TOTAL 8.7 mg/dL (8.8-10.5); CREATININE 1.39 mg/dL (0.60-1.30); POTASSIUM 4.4 mmol/L (3.5-5.1); THYROID STIMULATING HORMONE 0.35 uIU/mL (0.36-3.74); TOTAL PROTEIN, SERUM 7.9 g/dL (6.4-8.2)
[2017-08-02 19:22] VITALS: BP 146/82
[2017-08-02] MEDS: MetroNIDAZOLE 500 MG TABLET PO SCH (19:46)
[2017-08-02] MEDS: PRAVASTATIN SODIUM 40 MG TABLET PO SCH (19:46)
[2017-08-02] MEDS: DOCUSATE SODIUM 100 MG CAPSULE PO SCH (19:46)
[2017-08-02] MEDS: QUEtiapine FUMARATE 100 MG TABLET PO SCH (19:46)
[2017-08-02] MEDS: ALBUTEROL SULFATE 2.5 MG/0.5 ML NEB SOLUTION NEB SCH (20:24)
[2017-08-02] MEDS: IPRATROPIUM BROMIDE 0.5 MG/2.5 ML NEB SOLUTION NEB SCH (20:24)
[2017-08-02] MEDS: INSULIN GLARGINE,HUM.REC.ANLOG 100 UNITS/ML SQ SCH (21:00)
[2017-08-02] MEDS ORDERED: INSULIN DETEMIR 100 UNITS/ML SQ SCH (21:00)
[2017-08-02] MEDS ORDERED: INSULIN GLARGINE,HUM.REC.ANLOG 100 UNITS/ML SQ SCH (21:00)
[2017-08-02 23:20] VITALS: BP 138/76
[2017-08-03] MEDS: HEPARIN SODIUM,PORCINE 5,000 UNITS/ML VIAL SQ SCH ×3 (00:32→15:56)
[2017-08-03] MEDS: MethylPREDNISolone SOD SUCC 40 MG/ML VIAL IVP SCH ×2 (00:32→05:55)
[2017-08-03 00:53] LABS: GLUCOMETER DEV NAME(LOC) 6N 1E; GLUCOSE,POINT OF CARE 573 MG/DL (70-110)
[2017-08-03 04:41] VITALS: BP 137/80
[2017-08-03 05:04] LABS: AMPHET/METH SCREEN,URINE NEGATIVE (NEGATIVE); BARBITURATE SCREEN, URINE NEGATIVE (NEGATIVE); BENZODIAZEPINES SCREEN,URINE NEGATIVE (NEGATIVE); CANNABINOID SCREEN,URINE NEGATIVE (NEGATIVE); COCAINE SCREEN,URINE POSITIVE (NEGATIVE); METHADONE SCREEN, URINE NEGATIVE (NEGATIVE); OPIATE SCREEN,URINE NEGATIVE (NEGATIVE); PHENCYCLIDINE SCREEN,URINE NEGATIVE (NEGATIVE)
[2017-08-03] MEDS: INSULIN LISPRO 100 UNITS/ML SQ PRN ×4 (05:51→20:10)
[2017-08-03 06:13] LABS: GLUCOMETER DEV NAME(LOC) 6N 2D; GLUCOSE,POINT OF CARE 477 MG/DL (70-110)
[2017-08-03 06:20] LABS: BASOPHILS % (AUTO) 0.5 % (0.0-2.0); EOSINOPHILS % (AUTO) 0 % (1.0-6.0); HEMATOCRIT 39.9 % (36-46); HEMOGLOBIN 13.3 g/dL (12.0-16.0); LYMPHOCYTES # (AUTO) 0.6 K/uL (1.0-4.8); LYMPHOCYTES % (AUTO) 5.6 % (22.0-44.0); MEAN CORPUSCULAR HEMOGLOBIN 31.5 pg (26.0-34.0); MEAN CORPUSCULAR HGB CONC 33.3 G/dL (31.0-37.0); MEAN CORPUSCULAR VOLUME 95 fL (80-100); MONOCYTES # (AUTO) 0.2 K/uL (0.1-1.0); NEUTROPHILS # (AUTO) 10.4 K/uL (1.8-7.7); PLATELET COUNT (AUTO) 267 K/uL (150-450); RED BLOOD CELL COUNT(AUTO) 4.22 MIL/uL (4.00-5.20); RED CELL DISTRIBUTION WIDTH 13.6 % (11.5-14.5)
[2017-08-03 06:33] LABS: ALANINE AMINOTRANSFERASE 22 U/L (12-78); ALBUMIN 3.3 g/dL (3.4-5.0); ALKALINE PHOSPHATASE 126 U/L (46-116); ANION GAP 7 mmol/L (8-16); ASPARTATE AMINOTRANSFERASE 10 U/L (15-37); BILIRUBIN,TOTAL 0.4 mg/dL (0.1-1.0); CALCIUM, TOTAL 9.6 mg/dL (8.8-10.5); CARBON DIOXIDE 29 mmol/L (22-29); CHLORIDE 95 mmol/L (98-107); CHOL/HDL RATIO 2.7 (3.9-5.7); CHOLESTEROL 243 mg/dL (131-200); CREATINE KINASE, TOTAL 36 U/L (26-192); CREATININE 1.17 mg/dL (0.60-1.30); FREE T4 (FREE THYROXINE) 0.89 ng/dL (0.76-1.46); GLOMERULAR FILTR. RATE CALC 58 mL/min (>60); HDL CHOLESTEROL 90 mg/dL (40-60); LDL CHOL (CALC.) 142 mg/dL (0-130); POTASSIUM 4.8 mmol/L (3.5-5.1); SODIUM SERUM 131 mmol/L (136-145); TOTAL PROTEIN, SERUM 7.7 g/dL (6.4-8.2); TRIGLYCERIDES 56 mg/dL (15-150); UREA NITROGEN, BLOOD 23 mg/dL (7-18)
[2017-08-03] MEDS ORDERED: INSULIN GLARGINE,HUM.REC.ANLOG 100 UNITS/ML SQ ONE (07:00)
[2017-08-03 07:06] LABS: NEUTROPHILS % (AUTO) 91.9 % (40.0-70.0)
[2017-08-03 07:25] LABS: GLUCOSE,RANDOM 513 mg/dL (70-110)
[2017-08-03 07:52] VITALS: BP 140/78
[2017-08-03] MEDS: ALBUTEROL SULFATE 2.5 MG/0.5 ML NEB SOLUTION NEB SCH ×4 (09:00→19:30)
[2017-08-03] MEDS: IPRATROPIUM BROMIDE 0.5 MG/2.5 ML NEB SOLUTION NEB SCH ×4 (09:00→19:30)
[2017-08-03] MEDS: FLUTICASONE/VILANTEROL 100-25 MCG/INH INHALER [14] IH SCH (09:03)
[2017-08-03] MEDS: PANTOPRAZOLE SODIUM 40 MG DR TABLET PO SCH (09:03)
[2017-08-03] MEDS: PredniSONE 20 MG TABLET PO SCH ×2 (09:03→19:44)
[2017-08-03] MEDS: DOCUSATE SODIUM 100 MG CAPSULE PO SCH ×2 (09:03→19:43)
[2017-08-03] MEDS: AmLODIPine BESYLATE 5 MG TABLET PO SCH (09:03)
[2017-08-03] MEDS: MetroNIDAZOLE 500 MG TABLET PO SCH ×3 (09:03→19:43)
[2017-08-03 11:38] LABS: GLUCOMETER DEV NAME(LOC) 6N 2D; GLUCOSE,POINT OF CARE 225 MG/DL (70-110)
[2017-08-03 15:35] VITALS: BP 141/85
[2017-08-03 17:53] LABS: GLUCOMETER DEV NAME(LOC) 6N 2D; GLUCOSE,POINT OF CARE 262 MG/DL (70-110)
[2017-08-03] MEDS: PRAVASTATIN SODIUM 40 MG TABLET PO SCH (19:43)
[2017-08-03] MEDS: QUEtiapine FUMARATE 100 MG TABLET PO SCH (19:43)
[2017-08-03 19:45] VITALS: BP 155/80
[2017-08-03] MEDS: INSULIN GLARGINE,HUM.REC.ANLOG 100 UNITS/ML SQ SCH (20:09)
[2017-08-03 21:33] LABS: GLUCOMETER DEV NAME(LOC) 6N 1E; GLUCOSE,POINT OF CARE 253 MG/DL (70-110)
[2017-08-04] VITALS (7 sets, daily range): BP systolic 129–154; BP diastolic 72–98
[2017-08-04] MEDS: INSULIN LISPRO 100 UNITS/ML SQ PRN ×4 (05:10→20:08)
[2017-08-04 05:38] LABS: GLUCOMETER DEV NAME(LOC) 6N 2D; GLUCOSE,POINT OF CARE 429 MG/DL (70-110)
[2017-08-04 06:04] LABS: BASOPHILS % (AUTO) 0.2 % (0.0-2.0); EOSINOPHILS % (AUTO) 0 % (1.0-6.0); HEMATOCRIT 36.2 % (36-46); HEMOGLOBIN 12.3 g/dL (12.0-16.0); LYMPHOCYTES # (AUTO) 0.7 K/uL (1.0-4.8); LYMPHOCYTES % (AUTO) 6.4 % (22.0-44.0); MEAN CORPUSCULAR HEMOGLOBIN 31.6 pg (26.0-34.0); MEAN CORPUSCULAR HGB CONC 33.9 G/dL (31.0-37.0); MEAN CORPUSCULAR VOLUME 93 fL (80-100); MONOCYTES # (AUTO) 0.3 K/uL (0.1-1.0); NEUTROPHILS # (AUTO) 9.8 K/uL (1.8-7.7); PLATELET COUNT (AUTO) 269 K/uL (150-450); RED BLOOD CELL COUNT(AUTO) 3.89 MIL/uL (4.00-5.20); RED CELL DISTRIBUTION WIDTH 13.5 % (11.5-14.5)
[2017-08-04] MEDS ORDERED: INSULIN LISPRO 100 UNITS/ML SQ ONE (06:15)
[2017-08-04 06:28] LABS: ALANINE AMINOTRANSFERASE 20 U/L (12-78); ALBUMIN 2.9 g/dL (3.4-5.0); ALKALINE PHOSPHATASE 113 U/L (46-116); ANION GAP 7 mmol/L (8-16); ASPARTATE AMINOTRANSFERASE 10 U/L (15-37); BILIRUBIN,TOTAL 0.2 mg/dL (0.1-1.0); CALCIUM, TOTAL 9.1 mg/dL (8.8-10.5); CARBON DIOXIDE 28 mmol/L (22-29); CHLORIDE 94 mmol/L (98-107); CREATININE 0.97 mg/dL (0.60-1.30); GLOMERULAR FILTR. RATE CALC > 60 mL/min (>60); POTASSIUM 4.1 mmol/L (3.5-5.1); SODIUM SERUM 129 mmol/L (136-145); TOTAL PROTEIN, SERUM 6.7 g/dL (6.4-8.2); UREA NITROGEN, BLOOD 17 mg/dL (7-18)
[2017-08-04 06:40] LABS: NEUTROPHILS % (AUTO) 90.4 % (40.0-70.0)
[2017-08-04 06:58] LABS: GLUCOSE,RANDOM 417 mg/dL (70-110)
[2017-08-04] MEDS: IPRATROPIUM BROMIDE 0.5 MG/2.5 ML NEB SOLUTION NEB SCH ×4 (09:00→20:28)
[2017-08-04] MEDS: ALBUTEROL SULFATE 2.5 MG/0.5 ML NEB SOLUTION NEB SCH ×4 (09:00→20:28)
[2017-08-04] MEDS: PANTOPRAZOLE SODIUM 40 MG DR TABLET PO SCH (09:11)
[2017-08-04] MEDS: AmLODIPine BESYLATE 5 MG TABLET PO SCH (09:11)
[2017-08-04] MEDS: FLUTICASONE/VILANTEROL 100-25 MCG/INH INHALER [14] IH SCH (09:11)
[2017-08-04] MEDS: PredniSONE 20 MG TABLET PO SCH ×2 (09:11→20:00)
[2017-08-04] MEDS: MetroNIDAZOLE 500 MG TABLET PO SCH ×3 (09:12→20:00)
[2017-08-04] MEDS: DOCUSATE SODIUM 100 MG CAPSULE PO SCH ×2 (09:12→20:00)
[2017-08-04] MEDS: HEPARIN SODIUM,PORCINE 5,000 UNITS/ML VIAL SQ SCH ×3 (09:12→16:01)
[2017-08-04] MEDS ORDERED: FLUCONAZOLE 150 MG TABLET PO ONE (10:15)
[2017-08-04] MEDS: INSULIN GLARGINE,HUM.REC.ANLOG 100 UNITS/ML SQ SCH ×2 (10:24→20:08)
[2017-08-04] MEDS: CefTRIAXone SODIUM 2 GM in DEXTROSE 5%-WATER 20 ML IV SCH (11:10)
[2017-08-04] MEDS ORDERED: BISACODYL 10 MG RECTAL RECTAL SUPPOSITORY PR PRN (14:15)
[2017-08-04 14:23] LABS: GLUCOMETER DEV NAME(LOC) 6N 1E; GLUCOSE,POINT OF CARE 152 MG/DL (70-110)
[2017-08-04] MEDS: HYDROCODONE/ACETAMINOPHEN 5-325 MG TABLET PO PRN (15:59)
[2017-08-04 19:05] LABS: GLUCOMETER DEV NAME(LOC) 6N 2D; GLUCOSE,POINT OF CARE 263 MG/DL (70-110)
[2017-08-04] MEDS: PRAVASTATIN SODIUM 40 MG TABLET PO SCH (20:00)
[2017-08-04] MEDS: QUEtiapine FUMARATE 100 MG TABLET PO SCH (20:00)
[2017-08-04 20:48] LABS: GLUCOMETER DEV NAME(LOC) 6N 2D; GLUCOSE,POINT OF CARE 215 MG/DL (70-110)
[2017-08-05] MEDS: HEPARIN SODIUM,PORCINE 5,000 UNITS/ML VIAL SQ SCH ×2 (00:01→10:37)
[2017-08-05] MEDS: HYDROCODONE/ACETAMINOPHEN 5-325 MG TABLET PO PRN (00:03)
[2017-08-05 04:08] VITALS: BP 148/75
[2017-08-05] MEDS: INSULIN LISPRO 100 UNITS/ML SQ PRN ×2 (05:12→11:52)
[2017-08-05 05:43] LABS: GLUCOMETER DEV NAME(LOC) 6N 1E; GLUCOSE,POINT OF CARE 354 MG/DL (70-110)
[2017-08-05 07:01] VITALS: BP 144/90
[2017-08-05] MEDS: ALBUTEROL SULFATE 2.5 MG/0.5 ML NEB SOLUTION NEB SCH ×2 (09:00→13:00)
[2017-08-05] MEDS: IPRATROPIUM BROMIDE 0.5 MG/2.5 ML NEB SOLUTION NEB SCH ×2 (09:00→13:00)
[2017-08-05] MEDS: PANTOPRAZOLE SODIUM 40 MG DR TABLET PO SCH (10:34)
[2017-08-05] MEDS: DOCUSATE SODIUM 100 MG CAPSULE PO SCH (10:35)
[2017-08-05] MEDS: AmLODIPine BESYLATE 5 MG TABLET PO SCH (10:35)
[2017-08-05] MEDS: MetroNIDAZOLE 500 MG TABLET PO SCH (10:36)
[2017-08-05] MEDS: PredniSONE 20 MG TABLET PO SCH (10:38)
[2017-08-05] MEDS: FLUTICASONE/VILANTEROL 100-25 MCG/INH INHALER [14] IH SCH (10:48)
[2017-08-05] MEDS: INSULIN GLARGINE,HUM.REC.ANLOG 100 UNITS/ML SQ SCH (10:51)
[2017-08-05 11:01] VITALS: BP 140/79
[2017-08-05] MEDS: CefTRIAXone SODIUM 2 GM in DEXTROSE 5%-WATER 20 ML IV SCH (11:53)
[2017-08-05 12:23] LABS: GLUCOMETER DEV NAME(LOC) 6N 1E; GLUCOSE,POINT OF CARE 340 MG/DL (70-110)
[2017-08-05 12:23] LABS: GLUCOMETER DEV NAME(LOC) 6N 1E; GLUCOSE,POINT OF CARE 296 MG/DL (70-110)
[2017-08-05 15:30] VITALS: BP 150/88
[2017-08-05] MEDS ORDERED: LEVO250 PO (16:32)
[2017-08-05] MEDS ORDERED: PRED20 PO (16:34)
[2017-08-05] MEDS ORDERED: FLUT1AER IH (16:35)
[2017-08-05] MEDS ORDERED: ALBU8HFA IH (16:39)
== END 2017-08-05 17:10 | disposition home or self-care (01) | DRG 383 ==
LOC: EMS 07:53 → 6N 13:38
PROVIDERS: ADMIT Internal Medicine; ATTEND Internal Medicine
DX: L03.211 Cellulitis of face (principal); E11.00 Type 2 diabetes mellitus with hyperosmolarity without nonketotic hyperglycemic-hyperosmolar coma (NKHHC); J44.1 Chronic obstructive pulmonary disease with (acute) exacerbation; I10 Essential (primary) hypertension; M54.30 Sciatica, unspecified side; E78.5 Hyperlipidemia, unspecified; F31.9 Bipolar disorder, unspecified; K21.9 Gastro-esophageal reflux disease without esophagitis; F17.210 Nicotine dependence, cigarettes, uncomplicated; F14.90 Cocaine use, unspecified, uncomplicated; Z59.0 Homelessness; Z88.0 Allergy status to penicillin; Z88.1 Allergy status to other antibiotic agents; Z91.013 Allergy to seafood; Z79.899 Other long term (current) drug therapy; Z79.4 Long term (current) use of insulin
CPT/HCPCS: 80307; 83735; 84439; 84443; 87040; 93005; 94640; 94644; 96374; 96375; 97161; 99285; G0480; J0456; J0696; J1644; J1815; J1885; J2405; J2920; J2930; J3480; J7030; J7060

== ENCOUNTER 2017-08-10 19:21 | Emergency (ER) | payer OTHER ==
[~2017-08-10] VITALS: Ht 162.6 cm; Wt 68.2 kg
[~2017-08-10 19:21] MED LIST changes: +LEVO250 PO; +PRED20 PO
[2017-08-10 19:41] LABS: GLUCOSE,POINT OF CARE 406 MG/DL (70-110)
[2017-08-10] MEDS ORDERED: ALBUTEROL SULFATE 5 MG/ML 20 ML NEB SOLN [BULK] NEB ONE ×2 (19:45→23:15)
[2017-08-10] MEDS ORDERED: IPRATROPIUM BROMIDE 0.5 MG/2.5 ML NEB SOLUTION NEB ONE ×2 (19:45→23:15)
[2017-08-10] MEDS ORDERED: 0.9% SODIUM CHLORIDE 15 ML NEB SOLUTION NEB ONE (19:46)
[2017-08-10] MEDS ORDERED: EPINEPHrine 1:1,000 [1 MG/ML] AMP SQ ONE (23:15)
[2017-08-10] MEDS ORDERED: INSULIN REGULAR, HUMAN 100 UNITS/ML IVP ONE (23:15)
[2017-08-10] MEDS ORDERED: MethylPREDNISolone SOD SUCC 125 MG/2 ML VIAL IVP ONE (23:15)
[2017-08-10 23:51] LABS: BASOPHILS % (AUTO) 0.6 % (0.0-2.0); EOSINOPHILS % (AUTO) 0.5 % (1.0-6.0); HEMATOCRIT 41.9 % (36-46); HEMOGLOBIN 14.3 g/dL (12.0-16.0); LYMPHOCYTES # (AUTO) 2.3 K/uL (1.0-4.8); MEAN CORPUSCULAR HEMOGLOBIN 32.5 pg (26.0-34.0); MEAN CORPUSCULAR HGB CONC 34.1 G/dL (31.0-37.0); MEAN CORPUSCULAR VOLUME 95 fL (80-100); MONOCYTES # (AUTO) 0.7 K/uL (0.1-1.0); MONOCYTES % (AUTO) 10.4 % (2.0-9.0); NEUTROPHILS # (AUTO) 3.7 K/uL (1.8-7.7); NEUTROPHILS % (AUTO) 54.5 % (40.0-70.0); PLATELET COUNT (AUTO) 338 K/uL (150-450); RED CELL DISTRIBUTION WIDTH 14.2 % (11.5-14.5)
[2017-08-11 00:03] LABS: ALANINE AMINOTRANSFERASE 43 U/L (12-78); ALBUMIN 3.2 g/dL (3.4-5.0); ALKALINE PHOSPHATASE 204 U/L (46-116); ANION GAP 3 mmol/L (8-16); ASPARTATE AMINOTRANSFERASE 17 U/L (15-37); BILIRUBIN,TOTAL 0.2 mg/dL (0.1-1.0); CALCIUM, TOTAL 8.9 mg/dL (8.8-10.5); CARBON DIOXIDE 30 mmol/L (22-29); CHLORIDE 98 mmol/L (98-107); CREATININE 1.17 mg/dL (0.60-1.30); GLOMERULAR FILTR. RATE CALC 58 mL/min (>60); LIPASE 238 U/L (73-393); POTASSIUM 3.8 mmol/L (3.5-5.1); SODIUM SERUM 131 mmol/L (136-145); TOTAL PROTEIN, SERUM 7.1 g/dL (6.4-8.2); UREA NITROGEN, BLOOD 18 mg/dL (7-18)
[2017-08-11 00:09] LABS: GLUCOSE,RANDOM 589 mg/dL (70-110)
[2017-08-11] MEDS ORDERED: 0.9% SODIUM CHLORIDE 15 ML NEB SOLUTION NEB ONE (00:41)
[2017-08-11 01:53] LABS: GLUCOSE,POINT OF CARE 376 MG/DL (70-110)
[2017-08-11 03:08] LABS: GLUCOSE,POINT OF CARE 463 MG/DL (70-110)
[2017-08-11] MEDS ORDERED: INSULIN REGULAR, HUMAN 100 UNITS/ML IVP ONE (04:15)
[2017-08-11 05:00] VITALS: BP 135/88
[2017-08-11 05:33] LABS: GLUCOSE,POINT OF CARE 349 MG/DL (70-110)
[2017-08-11] MEDS ORDERED: ALBUTEROL SULFATE HFA 90 MCG/PUFF 8 GM INHALER IH ONE (05:45)
== END 2017-08-11 06:09 | disposition home or self-care (01) ==
LOC: EMS 19:22
DX: J44.1 Chronic obstructive pulmonary disease with (acute) exacerbation (principal); E11.65 Type 2 diabetes mellitus with hyperglycemia; I10 Essential (primary) hypertension; F31.9 Bipolar disorder, unspecified; K21.9 Gastro-esophageal reflux disease without esophagitis; F17.210 Nicotine dependence, cigarettes, uncomplicated; Z79.4 Long term (current) use of insulin; Z88.0 Allergy status to penicillin; Z91.11 Patient's noncompliance with dietary regimen; Z79.899 Other long term (current) drug therapy
CPT/HCPCS: 36415; 71045; 80053; 82962; 83690; 84484; 85025; 94644; 96372; 96374; 96375; 96376; 99285; 99406; G0480; J0171; J1815; J2930; J7611 ×2; 94640

== ENCOUNTER 2017-10-13 09:43 | Emergency (ER) | payer OTHER ==
[~2017-10-13] VITALS: Ht 157.5 cm; Wt 63.6 kg
[~2017-10-13 09:43] MED LIST changes: +AMLO-512 PO; +AUD NEB; +BENZ-51 PO; +DIPH25 PO; +DSS100 PO; +HEPA500018 SQ; +HYDR25TA84 PO; +INSLAN SQ; +INSU100V SQ; +IPRNEB IH; -LEVO250 PO; +LEVO500 PO; +MOM30 PO; +PANT40TA25 PO; +QUET25TA PO; +VANC750P10 IVPB
[2017-10-13] MEDS ORDERED: 0.9% SODIUM CHLORIDE 15 ML NEB SOLUTION NEB ONE ×2 (10:43→14:51)
[2017-10-13] MEDS ORDERED: PredniSONE 20 MG TABLET PO ONE (10:45)
[2017-10-13] MEDS ORDERED: IPRATROPIUM BROMIDE 0.5 MG/2.5 ML NEB SOLUTION NEB ONE (10:45)
[2017-10-13] MEDS ORDERED: ALBUTEROL SULFATE 5 MG/ML 20 ML NEB SOLN [BULK] NEB ONE ×3 (10:45→13:45)
[2017-10-13 11:00] LABS: BASOPHILS % (AUTO) 1.4 % (0.0-2.0); EOSINOPHILS % (AUTO) 2.2 % (1.0-6.0); HEMATOCRIT 45.1 % (36-46); HEMOGLOBIN 15.4 g/dL (12.0-16.0); LYMPHOCYTES # (AUTO) 1.5 K/uL (1.0-4.8); LYMPHOCYTES % (AUTO) 40.6 % (22.0-44.0); MEAN CORPUSCULAR HEMOGLOBIN 31.8 pg (26.0-34.0); MEAN CORPUSCULAR HGB CONC 34.3 G/dL (31.0-37.0); MEAN CORPUSCULAR VOLUME 93 fL (80-100); MONOCYTES # (AUTO) 0.3 K/uL (0.1-1.0); MONOCYTES % (AUTO) 7.4 % (2.0-9.0); NEUTROPHILS # (AUTO) 1.8 K/uL (1.8-7.7); NEUTROPHILS % (AUTO) 48.4 % (40.0-70.0); PLATELET COUNT (AUTO) 216 K/uL (150-450); RED BLOOD CELL COUNT(AUTO) 4.86 MIL/uL (4.00-5.20); RED CELL DISTRIBUTION WIDTH 13.9 % (11.5-14.5)
[2017-10-13 11:34] LABS: ANION GAP 8 mmol/L (8-16); CALCIUM, TOTAL 9.1 mg/dL (8.8-10.5); CARBON DIOXIDE 29 mmol/L (22-29); CHLORIDE 95 mmol/L (98-107); CREATININE 0.68 mg/dL (0.60-1.30); GLOMERULAR FILTR. RATE CALC > 60 mL/min (>60); GLUCOSE,RANDOM 290 mg/dL (70-110); POTASSIUM 4.1 mmol/L (3.5-5.1); SODIUM SERUM 132 mmol/L (136-145); UREA NITROGEN, BLOOD 8 mg/dL (7-18)
[2017-10-13 11:41] LABS: ALANINE AMINOTRANSFERASE 36 U/L (12-78); ALBUMIN 3.8 g/dL (3.4-5.0); ALKALINE PHOSPHATASE 116 U/L (46-116); ASPARTATE AMINOTRANSFERASE 32 U/L (15-37); BILIRUBIN,TOTAL 0.5 mg/dL (0.1-1.0); TOTAL PROTEIN, SERUM 8.1 g/dL (6.4-8.2)
[2017-10-13] MEDS ORDERED: ALBUTEROL SULFATE 2.5 MG/0.5 ML NEB SOLUTION NEB ONE (12:13)
[2017-10-13 14:55] LABS: GLUCOSE,POINT OF CARE 271 MG/DL (70-110)
[2017-10-13 16:26] VITALS: BP 149/95
== END 2017-10-13 16:28 | disposition home or self-care (01) ==
LOC: EMS 09:44
DX: J44.1 Chronic obstructive pulmonary disease with (acute) exacerbation (principal); F31.9 Bipolar disorder, unspecified; E11.9 Type 2 diabetes mellitus without complications; K21.9 Gastro-esophageal reflux disease without esophagitis; I10 Essential (primary) hypertension; F17.210 Nicotine dependence, cigarettes, uncomplicated; F14.90 Cocaine use, unspecified, uncomplicated; Z71.6 Tobacco abuse counseling; Z88.0 Allergy status to penicillin; Z88.1 Allergy status to other antibiotic agents; Z79.4 Long term (current) use of insulin; Z79.899 Other long term (current) drug therapy
CPT/HCPCS: 36415; 80053; 82962; 85025; 94644; 99285; 99406; J7512; J7611; J7613; 94640

== ENCOUNTER 2017-11-06 19:21 | Emergency (ER) | payer OTHER ==
[~2017-11-06] VITALS: Ht 162.6 cm; Wt 68.2 kg
[~2017-11-06 19:21] MED LIST changes: -ALBU8HFA IH; -AMLO-511 PO; -FLUT1AER IH; -HEPA500018 SQ; -INSU100V12 SQ; -LEVO500 PO; -METF500T6 PO; -MOM30 PO; -PRAV40TA4 PO; -PRED20 PO; -QUET100T PO; -TIOT185 IH; -VANC750P10 IVPB
[2017-11-06 20:34] LABS: BASOPHILS % (AUTO) 0.9 % (0.0-2.0); EOSINOPHILS % (AUTO) 2.6 % (1.0-6.0); HEMATOCRIT 45.8 % (36-46); HEMOGLOBIN 15.7 g/dL (12.0-16.0); LYMPHOCYTES # (AUTO) 1.7 K/uL (1.0-4.8); MEAN CORPUSCULAR HEMOGLOBIN 32.2 pg (26.0-34.0); MEAN CORPUSCULAR HGB CONC 34.3 G/dL (31.0-37.0); MEAN CORPUSCULAR VOLUME 94 fL (80-100); MONOCYTES # (AUTO) 0.3 K/uL (0.1-1.0); MONOCYTES % (AUTO) 5.2 % (2.0-9.0); NEUTROPHILS # (AUTO) 3.1 K/uL (1.8-7.7); NEUTROPHILS % (AUTO) 59.3 % (40.0-70.0); PLATELET COUNT (AUTO) 270 K/uL (150-450); RED BLOOD CELL COUNT(AUTO) 4.89 MIL/uL (4.00-5.20); RED CELL DISTRIBUTION WIDTH 14.3 % (11.5-14.5)
[2017-11-06 21:00] LABS: B-TYPE NATRIURETIC PEPTIDE 8 pg/mL (0-100)
[2017-11-06 21:19] LABS: ALANINE AMINOTRANSFERASE 19 U/L (12-78); ALBUMIN 3.6 g/dL (3.4-5.0); ALKALINE PHOSPHATASE 140 U/L (46-116); ANION GAP 13 mmol/L (8-16); ASPARTATE AMINOTRANSFERASE 14 U/L (15-37); BILIRUBIN,TOTAL 0.3 mg/dL (0.1-1.0); CALCIUM, TOTAL 9.7 mg/dL (8.8-10.5); CARBON DIOXIDE 24 mmol/L (22-29); CHLORIDE 94 mmol/L (98-107); CREATINE KINASE MB 1.2 ng/mL (0-5); CREATINE KINASE, TOTAL 80 U/L (26-192); CREATININE 1.05 mg/dL (0.60-1.30); GLOMERULAR FILTR. RATE CALC > 60 mL/min (>60); POTASSIUM 4.2 mmol/L (3.5-5.1); SODIUM SERUM 131 mmol/L (136-145); TOTAL PROTEIN, SERUM 7.7 g/dL (6.4-8.2); UREA NITROGEN, BLOOD 11 mg/dL (7-18)
[2017-11-06 21:21] LABS: GLUCOSE,RANDOM 484 mg/dL (70-110)
[2017-11-06] MEDS ORDERED: IPRATROPIUM BROMIDE 0.5 MG/2.5 ML NEB SOLUTION NEB ONE (21:45)
[2017-11-06] MEDS ORDERED: DiphenhydrAMINE HCL 50 MG/ML VIAL IVP ONE (21:45)
[2017-11-06] MEDS ORDERED: MethylPREDNISolone SOD SUCC 125 MG/2 ML VIAL IVP ONE (21:45)
[2017-11-06] MEDS ORDERED: ALBUTEROL SULFATE 5 MG/ML 20 ML NEB SOLN [BULK] NEB ONE (21:45)
[2017-11-06] MEDS ORDERED: INSULIN REGULAR, HUMAN 100 UNITS/ML IVP ONE (21:45)
[2017-11-06] MEDS ORDERED: 0.9% SODIUM CHLORIDE 5 ML NEB SOLUTION NEB ONE (23:17)
[2017-11-06 23:33] LABS: GLUCOSE,POINT OF CARE 139 MG/DL (70-110)
[2017-11-07] MEDS ORDERED: 0.9% SODIUM CHLORIDE 5 ML NEB SOLUTION NEB ONE (00:39)
[2017-11-07] MEDS ORDERED: ALBUTEROL SULFATE 5 MG/ML 20 ML NEB SOLN [BULK] NEB ONE (00:45)
[2017-11-07] MEDS ORDERED: IPRATROPIUM BROMIDE 0.5 MG/2.5 ML NEB SOLUTION NEB ONE (00:45)
[2017-11-07] MEDS ORDERED: ALBUTEROL SULFATE HFA 90 MCG/PUFF 8 GM INHALER IH ONE (01:45)
[2017-11-07 01:57] VITALS: BP 138/83
[2017-11-07] MEDS ORDERED: GLYB5 PO (11:11)
[2017-11-07] MEDS ORDERED: METF-960 PO (11:11)
[2017-11-10 17:14] LABS: GLUCOSE,POINT OF CARE 443 MG/DL (70-110)
== END 2017-11-07 02:38 | disposition home or self-care (01) ==
LOC: EMS 21:44
DX: S60.862A Insect bite (nonvenomous) of left wrist, initial encounter (principal); T78.49XA Other allergy, initial encounter; J45.901 Unspecified asthma with (acute) exacerbation; J44.1 Chronic obstructive pulmonary disease with (acute) exacerbation; R07.89 Other chest pain; E11.65 Type 2 diabetes mellitus with hyperglycemia; K21.9 Gastro-esophageal reflux disease without esophagitis; F31.9 Bipolar disorder, unspecified; I10 Essential (primary) hypertension; F14.10 Cocaine abuse, uncomplicated; F17.210 Nicotine dependence, cigarettes, uncomplicated; Z79.4 Long term (current) use of insulin; Z79.899 Other long term (current) drug therapy; Z88.1 Allergy status to other antibiotic agents; Z88.0 Allergy status to penicillin; Z91.013 Allergy to seafood; W57.XXXA Bitten or stung by nonvenomous insect and other nonvenomous arthropods, initial encounter; Y93.89 Activity, other specified; Y92.89 Other specified places as the place of occurrence of the external cause; Y99.8 Other external cause status
CPT/HCPCS: 71045; 80053; 82550; 82553; 82962; 83880; 84484; 85025; 85379; 93005; 94644; 94645; 96374; 96375; 99285; 99406; J1200; J1815; J2930; J7611 ×2; J3535

== ENCOUNTER 2017-12-07 11:58 | Emergency (ER) | payer OTHER ==
[~2017-12-07] VITALS: Ht 154.9 cm; Wt 68.2 kg
[~2017-12-07 11:58] MED LIST changes: -DIPH25 PO; -DSS100 PO; +GLYB5 PO; -HYDR25TA84 PO
[2017-12-07 12:10] LABS: GLUCOSE,POINT OF CARE 373 MG/DL (70-110)
[2017-12-07] MEDS ORDERED: IPRATROPIUM BROMIDE 0.5 MG/2.5 ML NEB SOLUTION NEB ONE ×2 (15:00→16:45)
[2017-12-07] MEDS ORDERED: DEXAMETHASONE SOD PHOS 4 MG/ML 5 ML VIAL IM ONE (15:00)
[2017-12-07] MEDS ORDERED: LEVALBUTEROL HCL 1.25 MG/0.5 ML NEB SOLUTION NEB ONE ×2 (15:00→16:45)
[2017-12-07] MEDS ORDERED: 0.9% SODIUM CHLORIDE 15 ML NEB SOLUTION NEB ONE (15:07)
[2017-12-07 16:07] VITALS: BP 148/93
[2017-12-07] MEDS ORDERED: ALBUTEROL SULFATE 2.5 MG/0.5 ML NEB SOLUTION NEB ONE ×2 (17:03→17:15)
[2017-12-07] MEDS ORDERED: ALBUTEROL SULFATE HFA 90 MCG/PUFF 8 GM INHALER IH ONE (18:00)
== END 2017-12-07 18:25 | disposition home or self-care (01) ==
LOC: EMS 12:00
DX: J44.1 Chronic obstructive pulmonary disease with (acute) exacerbation (principal); J45.901 Unspecified asthma with (acute) exacerbation; E11.9 Type 2 diabetes mellitus without complications; K21.9 Gastro-esophageal reflux disease without esophagitis; I10 Essential (primary) hypertension; F31.9 Bipolar disorder, unspecified; F17.210 Nicotine dependence, cigarettes, uncomplicated; F14.90 Cocaine use, unspecified, uncomplicated; Z88.0 Allergy status to penicillin; Z88.5 Allergy status to narcotic agent; Z79.4 Long term (current) use of insulin
CPT/HCPCS: 82962; 94644; 96372; 99285; J1100; J7613; Z7610; 94640; J3535

== ENCOUNTER 2018-01-20 08:21 | Emergency (ER) | payer OTHER ==
[~2018-01-20] VITALS: Ht 162.6 cm; Wt 63.6 kg
[~2018-01-20 08:21] MED LIST changes: +AMLO-511 PO; -AMLO-512 PO; +ATOR10TA84 PO; +LISI-661 PO; +PRED10 PO
[2018-01-20 08:38] LABS: GLUCOSE,POINT OF CARE 163 MG/DL (70-110)
[2018-01-20] MEDS ORDERED: MethylPREDNISolone SOD SUCC 125 MG/2 ML VIAL IVP ONE (09:15)
[2018-01-20] MEDS ORDERED: ALBUTEROL SULFATE 5 MG/ML 20 ML NEB SOLN [BULK] NEB ONE (09:15)
[2018-01-20] MEDS ORDERED: IPRATROPIUM BROMIDE 0.5 MG/2.5 ML NEB SOLUTION NEB ONE (09:15)
[2018-01-20] MEDS ORDERED: 0.9% SODIUM CHLORIDE 15 ML NEB SOLUTION NEB ONE (09:26)
[2018-01-20 09:37] LABS: EOSINOPHILS % (AUTO) 2.4 % (1.0-6.0); HEMATOCRIT 46.3 % (36-46); HEMOGLOBIN 15.9 g/dL (12.0-16.0); LYMPHOCYTES # (AUTO) 1.9 K/uL (1.0-4.8); LYMPHOCYTES % (AUTO) 45.1 % (22.0-44.0); MEAN CORPUSCULAR HEMOGLOBIN 32.1 pg (26.0-34.0); MEAN CORPUSCULAR HGB CONC 34.4 G/dL (31.0-37.0); MEAN CORPUSCULAR VOLUME 94 fL (80-100); MONOCYTES # (AUTO) 0.3 K/uL (0.1-1.0); MONOCYTES % (AUTO) 7.7 % (2.0-9.0); NEUTROPHILS # (AUTO) 1.8 K/uL (1.8-7.7); NEUTROPHILS % (AUTO) 42.8 % (40.0-70.0); PLATELET COUNT (AUTO) 266 K/uL (150-450); RED BLOOD CELL COUNT(AUTO) 4.95 MIL/uL (4.00-5.20); RED CELL DISTRIBUTION WIDTH 13.3 % (11.5-14.5)
[2018-01-20] MEDS ORDERED: 0.9% SODIUM CHLORIDE 5 ML NEB SOLUTION NEB ONE (11:26)
[2018-01-20] MEDS ORDERED: ALBUTEROL SULFATE 2.5 MG/0.5 ML NEB SOLUTION NEB ONE (11:30)
[2018-01-20 12:20] VITALS: BP 125/75
== END 2018-01-20 12:20 | disposition home or self-care (01) ==
LOC: EMS 08:22
DX: J44.1 Chronic obstructive pulmonary disease with (acute) exacerbation (principal); J45.901 Unspecified asthma with (acute) exacerbation; E11.9 Type 2 diabetes mellitus without complications; K21.9 Gastro-esophageal reflux disease without esophagitis; I10 Essential (primary) hypertension; F31.9 Bipolar disorder, unspecified; F14.90 Cocaine use, unspecified, uncomplicated; F17.210 Nicotine dependence, cigarettes, uncomplicated; Z88.0 Allergy status to penicillin; Z79.4 Long term (current) use of insulin; Z79.899 Other long term (current) drug therapy
CPT/HCPCS: 36415; 82962; 85025; 94640; 94644; 96374; 99285; 99406; J2930

== ENCOUNTER 2018-02-02 06:03 | Emergency (ER) | payer OTHER ==
[~2018-02-02] VITALS: Ht 162.6 cm; Wt 68.0 kg
[2018-02-02 06:23] LABS: GLUCOSE,POINT OF CARE 107 MG/DL (70-110)
[2018-02-02] MEDS ORDERED: DIPHENOXYLATE/ATROP 2.5-0.025 MG/5 ML ORAL.SYG LIQUID PO ONE (07:00)
[2018-02-02] MEDS ORDERED: IPRATROPIUM BROMIDE 0.5 MG/2.5 ML NEB SOLUTION NEB ONE (07:00)
[2018-02-02] MEDS ORDERED: DIPHENOXYLATE/ATROP 2.5-0.025 MG TABLET PO ONE (07:00)
[2018-02-02] MEDS ORDERED: ALBUTEROL SULFATE 5 MG/ML 20 ML NEB SOLN [BULK] NEB ONE (07:00)
[2018-02-02] MEDS ORDERED: MethylPREDNISolone SOD SUCC 125 MG/2 ML VIAL IVP ONE (07:00)
[2018-02-02] MEDS ORDERED: 0.9% SODIUM CHLORIDE 15 ML NEB SOLUTION NEB ONE (07:03)
[2018-02-02 07:25] LABS: BASOPHILS % (AUTO) 1.3 % (0.0-2.0); EOSINOPHILS % (AUTO) 1.9 % (1.0-6.0); HEMATOCRIT 43.1 % (36-46); HEMOGLOBIN 15.1 g/dL (12.0-16.0); LYMPHOCYTES % (AUTO) 38.1 % (22.0-44.0); MEAN CORPUSCULAR HEMOGLOBIN 32.6 pg (26.0-34.0); MEAN CORPUSCULAR HGB CONC 35.1 G/dL (31.0-37.0); MEAN CORPUSCULAR VOLUME 93 fL (80-100); MONOCYTES # (AUTO) 0.4 K/uL (0.1-1.0); MONOCYTES % (AUTO) 8.6 % (2.0-9.0); NEUTROPHILS # (AUTO) 2.6 K/uL (1.8-7.7); NEUTROPHILS % (AUTO) 50.1 % (40.0-70.0); PLATELET COUNT (AUTO) 280 K/uL (150-450); RED BLOOD CELL COUNT(AUTO) 4.64 MIL/uL (4.00-5.20); RED CELL DISTRIBUTION WIDTH 13.2 % (11.5-14.5)
[2018-02-02 07:36] LABS: ANION GAP 5 mmol/L (8-16); CALCIUM, TOTAL 9.8 mg/dL (8.8-10.5); CARBON DIOXIDE 31 mmol/L (22-29); CHLORIDE 100 mmol/L (98-107); CREATININE 0.96 mg/dL (0.60-1.30); GLOMERULAR FILTR. RATE CALC > 60 mL/min (>60); GLUCOSE,RANDOM 94 mg/dL (70-110); POTASSIUM 4.4 mmol/L (3.5-5.1); SODIUM SERUM 136 mmol/L (136-145); UREA NITROGEN, BLOOD 17 mg/dL (7-18)
[2018-02-02 07:42] LABS: ALANINE AMINOTRANSFERASE 47 U/L (12-78); ALBUMIN 3.9 g/dL (3.4-5.0); ALKALINE PHOSPHATASE 108 U/L (46-116); ASPARTATE AMINOTRANSFERASE 38 U/L (15-37); BILIRUBIN,TOTAL 0.4 mg/dL (0.1-1.0); TOTAL PROTEIN, SERUM 8.1 g/dL (6.4-8.2)
[2018-02-02 10:03] VITALS: BP 141/85
== END 2018-02-02 10:17 | disposition home or self-care (01) ==
LOC: EMS 06:05
DX: J45.901 Unspecified asthma with (acute) exacerbation (principal); J44.1 Chronic obstructive pulmonary disease with (acute) exacerbation; R19.7 Diarrhea, unspecified; F31.9 Bipolar disorder, unspecified; K21.9 Gastro-esophageal reflux disease without esophagitis; I10 Essential (primary) hypertension; F17.210 Nicotine dependence, cigarettes, uncomplicated; F14.90 Cocaine use, unspecified, uncomplicated; Z88.0 Allergy status to penicillin; Z79.899 Other long term (current) drug therapy; Z79.4 Long term (current) use of insulin
CPT/HCPCS: 36415; 71045; 80053; 82962; 85025; 94644; 96374; 99285; J2930

== ENCOUNTER 2018-02-19 17:40 | Emergency (ER) | payer OTHER ==
[~2018-02-19] VITALS: Ht 162.6 cm; Wt 63.6 kg
[2018-02-19 17:41] VITALS: BP 156/95
[2018-02-19] MEDS ORDERED: CYCLOBENZAPRINE HCL 10 MG TABLET PO ONE (19:15)
[2018-02-19] MEDS ORDERED: KETOROLAC TROMETHAMINE 60 MG/2 ML VIAL IM ONE (19:15)
== END 2018-02-19 19:38 | disposition home or self-care (01) ==
LOC: EMS 17:41
DX: M54.31 Sciatica, right side (principal); F31.9 Bipolar disorder, unspecified; J44.9 Chronic obstructive pulmonary disease, unspecified; I10 Essential (primary) hypertension; F17.210 Nicotine dependence, cigarettes, uncomplicated; F12.10 Cannabis abuse, uncomplicated; Z88.0 Allergy status to penicillin; Z91.013 Allergy to seafood; Z79.4 Long term (current) use of insulin; Z79.899 Other long term (current) drug therapy
CPT/HCPCS: 96372; 99283; J1885

== ENCOUNTER 2018-03-01 18:28 | Emergency (ER) | payer OTHER ==
[~2018-03-01] VITALS: Ht 162.6 cm; Wt 63.6 kg
[2018-03-01 18:48] LABS: GLUCOSE,POINT OF CARE 185 MG/DL (70-110)
[2018-03-01 19:58] LABS: HEMATOCRIT 40.8 % (36-46); HEMOGLOBIN 13.9 g/dL (12.0-16.0); LYMPHOCYTES # (AUTO) 2.9 K/uL (1.0-4.8); MEAN CORPUSCULAR HEMOGLOBIN 31.3 pg (26.0-34.0); MEAN CORPUSCULAR VOLUME 92 fL (80-100); MONOCYTES # (AUTO) 0.3 K/uL (0.1-1.0); MONOCYTES % (AUTO) 5.3 % (2.0-9.0); NEUTROPHILS # (AUTO) 1.9 K/uL (1.8-7.7); NEUTROPHILS % (AUTO) 35.7 % (40.0-70.0); PLATELET COUNT (AUTO) 262 K/uL (150-450); RED BLOOD CELL COUNT(AUTO) 4.43 MIL/uL (4.00-5.20); RED CELL DISTRIBUTION WIDTH 12.8 % (11.5-14.5)
[2018-03-01 20:07] LABS: ANION GAP 7 mmol/L (8-16); CALCIUM, TOTAL 9.1 mg/dL (8.8-10.5); CARBON DIOXIDE 30 mmol/L (22-29); CHLORIDE 96 mmol/L (98-107); CREATININE 0.71 mg/dL (0.60-1.30); GLOMERULAR FILTR. RATE CALC > 60 mL/min (>60); GLUCOSE,RANDOM 194 mg/dL (70-110); POTASSIUM 3.6 mmol/L (3.5-5.1); SODIUM SERUM 133 mmol/L (136-145); UREA NITROGEN, BLOOD 6 mg/dL (7-18)
[2018-03-01 20:13] LABS: ALANINE AMINOTRANSFERASE 45 U/L (12-78); ALBUMIN 3.9 g/dL (3.4-5.0); ALKALINE PHOSPHATASE 88 U/L (46-116); ASPARTATE AMINOTRANSFERASE 31 U/L (15-37); BILIRUBIN,TOTAL 0.2 mg/dL (0.1-1.0); TOTAL PROTEIN, SERUM 7.7 g/dL (6.4-8.2)
[2018-03-01] MEDS: GuaiFENesin/D-METHORPHAN [SUGAR-FREE] 200-20MG/10 ML SYRUP UDCUP PO ONE (21:17)
[2018-03-01] MEDS: ACETAMINOPHEN 500 MG TABLET PO ONE (21:17)
[2018-03-01] MEDS: KETOROLAC TROMETHAMINE 60 MG/2 ML VIAL IM ONE (21:18)
[2018-03-01] MEDS: PredniSONE 20 MG TABLET PO ONE (21:18)
[2018-03-01] MEDS: ALBUTEROL SULFATE 2.5 MG/0.5 ML NEB SOLUTION NEB ONE ×2 (21:37→22:00)
[2018-03-01] MEDS: IPRATROPIUM BROMIDE 0.5 MG/2.5 ML NEB SOLUTION NEB ONE ×2 (21:38→22:00)
[2018-03-01] MEDS: ALBUTEROL SULFATE HFA 90 MCG/PUFF 8 GM INHALER IH ONE (23:34)
[2018-03-01 23:35] VITALS: BP 137/86
== END 2018-03-01 23:44 | disposition home or self-care (01) ==
LOC: EMS 18:29
DX: J44.1 Chronic obstructive pulmonary disease with (acute) exacerbation (principal); E11.65 Type 2 diabetes mellitus with hyperglycemia; F10.129 Alcohol abuse with intoxication, unspecified; M25.561 Pain in right knee; M25.562 Pain in left knee; F17.210 Nicotine dependence, cigarettes, uncomplicated; K21.9 Gastro-esophageal reflux disease without esophagitis; I10 Essential (primary) hypertension; F14.90 Cocaine use, unspecified, uncomplicated; Z59.0 Homelessness; Z88.0 Allergy status to penicillin; Z79.4 Long term (current) use of insulin; Z79.899 Other long term (current) drug therapy; Y90.6 Blood alcohol level of 120-199 mg/100 ml
CPT/HCPCS: 36415; 80053; 82962; 84484; 85025; 94640; 96372; 99284; 99406; G0480; J1885; J7512; J3535

== ENCOUNTER 2018-03-09 14:18 | Emergency (ER) | payer OTHER ==
[~2018-03-09] VITALS: Ht 160 cm; Wt 81.8 kg
[2018-03-09 16:02] LABS: BASOPHILS % (AUTO) 1.6 % (0.0-2.0); EOSINOPHILS % (AUTO) 3.2 % (1.0-6.0); HEMATOCRIT 43.7 % (36-46); HEMOGLOBIN 15.3 g/dL (12.0-16.0); LYMPHOCYTES # (AUTO) 2.1 K/uL (1.0-4.8); MEAN CORPUSCULAR HGB CONC 34.9 G/dL (31.0-37.0); MEAN CORPUSCULAR VOLUME 92 fL (80-100); MONOCYTES # (AUTO) 0.2 K/uL (0.1-1.0); MONOCYTES % (AUTO) 4.4 % (2.0-9.0); NEUTROPHILS # (AUTO) 2.8 K/uL (1.8-7.7); NEUTROPHILS % (AUTO) 51.8 % (40.0-70.0); PLATELET COUNT (AUTO) 246 K/uL (150-450); RED BLOOD CELL COUNT(AUTO) 4.78 MIL/uL (4.00-5.20); RED CELL DISTRIBUTION WIDTH 13.1 % (11.5-14.5)
[2018-03-09 16:24] LABS: ANION GAP 10 mmol/L (8-16); CALCIUM, TOTAL 9.3 mg/dL (8.8-10.5); CARBON DIOXIDE 29 mmol/L (22-29); CHLORIDE 94 mmol/L (98-107); CREATININE 0.72 mg/dL (0.60-1.30); GLOMERULAR FILTR. RATE CALC > 60 mL/min (>60); GLUCOSE,RANDOM 189 mg/dL (70-110); POTASSIUM 3.6 mmol/L (3.5-5.1); SODIUM SERUM 133 mmol/L (136-145); UREA NITROGEN, BLOOD 7 mg/dL (7-18)
[2018-03-09 16:29] LABS: ALANINE AMINOTRANSFERASE 29 U/L (12-78); ALBUMIN 4.2 g/dL (3.4-5.0); ALKALINE PHOSPHATASE 92 U/L (46-116); ASPARTATE AMINOTRANSFERASE 19 U/L (15-37); BILIRUBIN,TOTAL 0.4 mg/dL (0.1-1.0); TOTAL PROTEIN, SERUM 8.5 g/dL (6.4-8.2)
[2018-03-09] MEDS: SODIUM CHLORIDE 0.9% 1,000 ML IV ONE (16:42)
[2018-03-09] MEDS ORDERED: 0.9% SODIUM CHLORIDE 5 ML NEB SOLUTION NEB ONE (18:38)
[2018-03-09] MEDS: IBUPROFEN 600 MG TABLET PO ONE (18:40)
[2018-03-09] MEDS: ALBUTEROL SULFATE 5 MG/ML 20 ML NEB SOLN [BULK] NEB ONE (18:43)
[2018-03-09] MEDS: IPRATROPIUM BROMIDE 0.5 MG/2.5 ML NEB SOLUTION NEB ONE (18:43)
[2018-03-09 20:05] VITALS: BP 153/88
== END 2018-03-09 20:41 | disposition home or self-care (01) ==
LOC: EMS 14:19
DX: J44.9 Chronic obstructive pulmonary disease, unspecified (principal); F10.129 Alcohol abuse with intoxication, unspecified; E11.9 Type 2 diabetes mellitus without complications; K21.9 Gastro-esophageal reflux disease without esophagitis; I10 Essential (primary) hypertension; F31.9 Bipolar disorder, unspecified; F14.90 Cocaine use, unspecified, uncomplicated; F17.210 Nicotine dependence, cigarettes, uncomplicated; Z79.4 Long term (current) use of insulin; Z79.899 Other long term (current) drug therapy; Z88.0 Allergy status to penicillin; Y90.6 Blood alcohol level of 120-199 mg/100 ml
CPT/HCPCS: 36415; 71045; 80053; 85025; 94644; 99285; G0480; J7030

== ENCOUNTER 2018-03-12 10:19 | Emergency (ER) | payer OTHER ==
[~2018-03-12] VITALS: Ht 162.6 cm; Wt 63.5 kg
[2018-03-12 10:44] LABS: GLUCOSE,POINT OF CARE 181 MG/DL (70-110)
[2018-03-12] MEDS ORDERED: ACETAMINOPHEN/CODEINE 300-30 MG TABLET PO ONE (12:15)
[2018-03-12] MEDS ORDERED: PERTUSS(ACELL),DIPH,TET VAC/PF 0.5 ML VIAL IM ONE (12:30)
[2018-03-12 13:43] VITALS: BP 165/94
== END 2018-03-12 14:00 | disposition home or self-care (01) ==
LOC: EMS 10:21
DX: S01.302A Unspecified open wound of left ear, initial encounter (principal); S01.102A Unspecified open wound of left eyelid and periocular area, initial encounter; M25.512 Pain in left shoulder; E11.9 Type 2 diabetes mellitus without complications; I10 Essential (primary) hypertension; J44.9 Chronic obstructive pulmonary disease, unspecified; K21.9 Gastro-esophageal reflux disease without esophagitis; F31.9 Bipolar disorder, unspecified; F17.210 Nicotine dependence, cigarettes, uncomplicated; F14.90 Cocaine use, unspecified, uncomplicated; Z88.0 Allergy status to penicillin; Z88.1 Allergy status to other antibiotic agents; Z79.4 Long term (current) use of insulin; Z79.899 Other long term (current) drug therapy; W18.39XA Other fall on same level, initial encounter; Y93.01 Activity, walking, marching and hiking; Y92.488 Other paved roadways as the place of occurrence of the external cause; Y99.8 Other external cause status
CPT/HCPCS: 70450; 72125; 90471; 90715

== ENCOUNTER → 2018-04-03 | Emergency (ER) | payer OTHER ==
[~2018-04-03] VITALS: Ht 162.6 cm; Wt 59.1 kg
[~2018-04-03] MED LIST changes: +MORPHINE SULFATE 4 MG/ML SYRINGE IVP ONE; +ONDANSETRON HCL 4 MG/2 ML VIAL IVP ONE
[2018-04-03 03:59] LABS: GLUCOSE,POINT OF CARE 154 MG/DL (70-110)
[2018-04-03 04:49] LABS: BASOPHILS % (AUTO) 0.5 % (0.0-2.0); EOSINOPHILS % (AUTO) 1.8 % (1.0-6.0); HEMATOCRIT 41.2 % (36-46); HEMOGLOBIN 14.1 g/dL (12.0-16.0); LYMPHOCYTES # (AUTO) 4.5 K/uL (1.0-4.8); LYMPHOCYTES % (AUTO) 41.2 % (22.0-44.0); MEAN CORPUSCULAR HEMOGLOBIN 31.3 pg (26.0-34.0); MEAN CORPUSCULAR HGB CONC 34.2 G/dL (31.0-37.0); MEAN CORPUSCULAR VOLUME 92 fL (80-100); MONOCYTES # (AUTO) 0.7 K/uL (0.1-1.0); MONOCYTES % (AUTO) 6.7 % (2.0-9.0); NEUTROPHILS # (AUTO) 5.4 K/uL (1.8-7.7); NEUTROPHILS % (AUTO) 49.8 % (40.0-70.0); PLATELET COUNT (AUTO) 293 K/uL (150-450); RED CELL DISTRIBUTION WIDTH 13.2 % (11.5-14.5)
[2018-04-03 04:56] LABS: ANION GAP 8 mmol/L (8-16); CALCIUM, TOTAL 8.9 mg/dL (8.8-10.5); CARBON DIOXIDE 32 mmol/L (22-29); CHLORIDE 93 mmol/L (98-107); CREATININE 0.77 mg/dL (0.60-1.30); GLOMERULAR FILTR. RATE CALC > 60 mL/min (>60); GLUCOSE,RANDOM 138 mg/dL (70-110); POTASSIUM 3.8 mmol/L (3.5-5.1); SODIUM SERUM 133 mmol/L (136-145); UREA NITROGEN, BLOOD 20 mg/dL (7-18)
[2018-04-03 05:01] LABS: ALANINE AMINOTRANSFERASE 26 U/L (12-78); ALBUMIN 3.5 g/dL (3.4-5.0); ALKALINE PHOSPHATASE 86 U/L (46-116); ASPARTATE AMINOTRANSFERASE 19 U/L (15-37); BILIRUBIN,TOTAL 0.3 mg/dL (0.1-1.0); LIPASE 191 U/L (73-393); TOTAL PROTEIN, SERUM 7.3 g/dL (6.4-8.2)
[2018-04-03 05:22] VITALS: BP 140/83
== END | disposition home or self-care (01) ==
LOC: EMS 03:28
DX: R11.2 Nausea with vomiting, unspecified (principal); R19.7 Diarrhea, unspecified; R10.84 Generalized abdominal pain; M25.511 Pain in right shoulder; I10 Essential (primary) hypertension; E11.9 Type 2 diabetes mellitus without complications; K21.9 Gastro-esophageal reflux disease without esophagitis; J44.9 Chronic obstructive pulmonary disease, unspecified; F31.9 Bipolar disorder, unspecified; F17.210 Nicotine dependence, cigarettes, uncomplicated; F14.90 Cocaine use, unspecified, uncomplicated; Z88.0 Allergy status to penicillin; Z88.1 Allergy status to other antibiotic agents; Z79.4 Long term (current) use of insulin; Z79.899 Other long term (current) drug therapy
CPT/HCPCS: 80053; 82962; 83690; 85025; 96374; 96375; 99283; J2270; J2405

== ENCOUNTER 2019-03-15 01:40 | Inpatient (IN) | payer OTHER ==
[~2019-03-15] VITALS: Ht 162.6 cm; Wt 63.6 kg
[~2019-03-15 01:40] MED LIST changes: -AMLO-511 PO; +AMLO5TAB9 PO; -MORPHINE SULFATE 4 MG/ML SYRINGE IVP ONE; -ONDANSETRON HCL 4 MG/2 ML VIAL IVP ONE
[2019-03-15] MEDS ORDERED: ALBUTEROL SULFATE 2.5 MG/0.5 ML NEB SOLUTION NEB ONE (02:00)
[2019-03-15] MEDS ORDERED: IPRATROPIUM BROMIDE 0.5 MG/2.5 ML NEB SOLUTION NEB ONE (02:00)
[2019-03-15] MEDS ORDERED: MAGNESIUM SULFATE 2 GM/WATER 50 ML IV ONE (04:15)
[2019-03-15] MEDS ORDERED: ALBUTEROL SULFATE 5 MG/ML 20 ML NEB SOLN [BULK] NEB ONE (04:15)
[2019-03-15] MEDS ORDERED: MethylPREDNISolone SOD SUCC 125 MG/2 ML VIAL IVP ONE (04:15)
[2019-03-15] MEDS ORDERED: CloNIDine HCL 0.2 MG TABLET PO ONE (04:30)
[2019-03-15 04:43] LABS: BASOPHILS % (AUTO) 1.1 % (0.0-2.0); EOSINOPHILS % (AUTO) 4.9 % (1.0-6.0); HEMATOCRIT 40.4 % (36-46); HEMOGLOBIN 13.7 g/dL (12.0-16.0); LYMPHOCYTES # (AUTO) 1.9 K/uL (1.0-4.8); LYMPHOCYTES % (AUTO) 45.1 % (22.0-44.0); MEAN CORPUSCULAR HEMOGLOBIN 31.6 pg (26.0-34.0); MEAN CORPUSCULAR VOLUME 93 fL (80-100); MONOCYTES # (AUTO) 0.4 K/uL (0.1-1.0); MONOCYTES % (AUTO) 9.2 % (2.0-9.0); NEUTROPHILS # (AUTO) 1.7 K/uL (1.8-7.7); NEUTROPHILS % (AUTO) 39.7 % (40.0-70.0); PLATELET COUNT (AUTO) 255 K/uL (150-450); RED BLOOD CELL COUNT(AUTO) 4.34 MIL/uL (4.00-5.20); RED CELL DISTRIBUTION WIDTH 13.4 % (11.5-14.5)
[2019-03-15] MEDS ORDERED: 0.9% SODIUM CHLORIDE 15 ML NEB SOLUTION NEB ONE (04:46)
[2019-03-15 04:51] LABS: ANION GAP 10 mmol/L (8-16); CALCIUM, TOTAL 9.6 mg/dL (8.8-10.5); CARBON DIOXIDE 28 mmol/L (22-29); CHLORIDE 95 mmol/L (98-107); GLOMERULAR FILTR. RATE CALC > 60 mL/min (>60); GLUCOSE,RANDOM 222 mg/dL (70-110); POTASSIUM 3.9 mmol/L (3.5-5.1); SODIUM SERUM 133 mmol/L (136-145); UREA NITROGEN, BLOOD 8 mg/dL (7-18)
[2019-03-15 04:57] LABS: ALANINE AMINOTRANSFERASE 25 U/L (12-78); ALBUMIN 3.9 g/dL (3.4-5.0); ALKALINE PHOSPHATASE 98 U/L (46-116); ASPARTATE AMINOTRANSFERASE 17 U/L (15-37); BILIRUBIN,TOTAL 0.8 mg/dL (0.1-1.0); TOTAL PROTEIN, SERUM 7.4 g/dL (6.4-8.2)
[2019-03-15 05:04] LABS: B-TYPE NATRIURETIC PEPTIDE 8 pg/mL (0-100)
[2019-03-15] MEDS ORDERED: LISINOPRIL 10 MG TABLET PO ONE (06:00)
[2019-03-15] MEDS ORDERED: AmLODIPine BESYLATE 5 MG TABLET PO ONE (06:00)
[2019-03-15 06:01] LABS: GLUCOSE,POINT OF CARE 169 MG/DL (70-110)
[2019-03-15] MEDS ORDERED: DEXTROSE 50%-WATER 25 GM/50 ML SYRINGE IVP PRN (07:45)
[2019-03-15] MEDS ORDERED: IPRATROPIUM BROMIDE 0.5 MG/2.5 ML NEB SOLUTION NEB PRN (07:45)
[2019-03-15] MEDS ORDERED: ALBUTEROL SULFATE 2.5 MG/0.5 ML NEB SOLUTION NEB PRN (07:45)
[2019-03-15] MEDS ORDERED: ACETAMINOPHEN 325 MG TABLET PO PRN (07:45)
[2019-03-15] MEDS ORDERED: MAGNESIUM HYDROXIDE SUSPENSION 30 ML UDCUP PO PRN (07:45)
[2019-03-15 07:49] LABS: INFLUENZA TYPE A NEGATIVE FOR TYPE A (NEGATIVE); INFLUENZA TYPE B NEGATIVE FOR TYPE B (NEGATIVE)
[2019-03-15] MEDS: AZITHROMYCIN 500 MG/NS 250 ML IV SCH (08:05)
[2019-03-15] MEDS: HEPARIN SODIUM,PORCINE 5,000 UNITS/ML VIAL SQ SCH ×2 (09:00→15:42)
[2019-03-15] MEDS: MULTIVITAMINS WITH MINERALS, THERAPEUTIC TABLET PO SCH (09:04)
[2019-03-15] MEDS: DOCUSATE SODIUM 100 MG CAPSULE PO SCH ×2 (09:05→20:20)
[2019-03-15] MEDS: FAMOTIDINE 20 MG TABLET PO SCH ×2 (09:06→20:20)
[2019-03-15 09:27] LABS: GLUCOSE,POINT OF CARE 501 MG/DL (70-110)
[2019-03-15] MEDS ORDERED: INSULIN LISPRO 100 UNITS/ML SQ ONE (10:00)
[2019-03-15 11:06] VITALS: BP 132/77
[2019-03-15] MEDS: INSULIN LISPRO 100 UNITS/ML SQ PRN ×3 (11:40→20:20)
[2019-03-15] MEDS: MethylPREDNISolone SOD SUCC 125 MG/2 ML VIAL IVP SCH ×2 (12:10→17:20)
[2019-03-15 17:07] VITALS: BP 121/81
[2019-03-15] MEDS ORDERED: INFLUENZA VIRUS VACCINE QVS 2019-20 (3YR+)/PF 60 MCG/0.5 ML SYRINGE IM ONE (19:15)
[2019-03-15 20:09] VITALS: BP 142/90
[2019-03-16] VITALS (7 sets, daily range): BP systolic 120–156; BP diastolic 75–96
[2019-03-16] MEDS: MethylPREDNISolone SOD SUCC 125 MG/2 ML VIAL IVP SCH ×5 (01:09→23:57)
[2019-03-16] MEDS: HEPARIN SODIUM,PORCINE 5,000 UNITS/ML VIAL SQ SCH ×4 (01:10→23:56)
[2019-03-16] MEDS: INSULIN LISPRO 100 UNITS/ML SQ PRN ×4 (06:47→21:15)
[2019-03-16 07:13] LABS: GLUCOMETER DEV NAME(LOC) 6N.2; GLUCOSE,POINT OF CARE 317 MG/DL (70-110)
[2019-03-16 07:13] LABS: GLUCOMETER DEV NAME(LOC) 6N.2; GLUCOSE,POINT OF CARE 349 MG/DL (70-110)
[2019-03-16 07:13] LABS: GLUCOMETER DEV NAME(LOC) 6N.2; GLUCOSE,POINT OF CARE 363 MG/DL (70-110)
[2019-03-16 07:14] LABS: GLUCOMETER DEV NAME(LOC) 6N.2; GLUCOSE,POINT OF CARE 328 MG/DL (70-110)
[2019-03-16 07:14] LABS: GLUCOMETER DEV NAME(LOC) 6N.2; GLUCOSE,POINT OF CARE 221 MG/DL (70-110)
[2019-03-16] MEDS: AZITHROMYCIN 500 MG/NS 250 ML IV SCH (08:00)
[2019-03-16] MEDS: FAMOTIDINE 20 MG TABLET PO SCH ×2 (10:32→21:14)
[2019-03-16] MEDS: DOCUSATE SODIUM 100 MG CAPSULE PO SCH ×2 (10:32→21:15)
[2019-03-16 12:17] LABS: GLUCOMETER DEV NAME(LOC) 6N.2; GLUCOSE,POINT OF CARE 458 MG/DL (70-110)
[2019-03-16] MEDS: MULTIVITAMINS WITH MINERALS, THERAPEUTIC TABLET PO SCH (12:51)
[2019-03-16] MEDS ORDERED: INSULIN LISPRO 100 UNITS/ML SQ PRN (14:30)
[2019-03-16] MEDS ORDERED: DEXTROSE 50%-WATER 25 GM/50 ML SYRINGE IVP PRN (14:30)
[2019-03-16] MEDS: BENZONATATE 100 MG CAPSULE PO SCH ×2 (17:37→21:15)
[2019-03-16] MEDS: GlyBURIDE 5 MG TABLET PO SCH (17:38)
[2019-03-16] MEDS: GuaiFENesin/CODEINE [SUGAR FREE] 200-20MG/10 ML SYRUP UDCUP PO PRN (17:38)
[2019-03-16 18:13] LABS: GLUCOMETER DEV NAME(LOC) 6N.2; GLUCOSE,POINT OF CARE 407 MG/DL (70-110)
[2019-03-16] MEDS ORDERED: INSULIN GLARGINE,HUM.REC.ANLOG 100 UNITS/ML SQ SCH (21:00)
[2019-03-17 05:00] VITALS: BP 137/79
[2019-03-17 05:30] LABS: GLUCOMETER DEV NAME(LOC) 6N.2; GLUCOSE,POINT OF CARE 393 MG/DL (70-110)
[2019-03-17] MEDS: INSULIN LISPRO 100 UNITS/ML SQ PRN ×3 (05:44→21:10)
[2019-03-17] MEDS: MethylPREDNISolone SOD SUCC 125 MG/2 ML VIAL IVP SCH (05:44)
[2019-03-17] MEDS ORDERED: INSULIN LISPRO 100 UNITS/ML SQ ONE (06:45)
[2019-03-17 07:11] LABS: GLUCOMETER DEV NAME(LOC) 6N.2; GLUCOSE,POINT OF CARE 406 MG/DL (70-110)
[2019-03-17 08:34] VITALS: BP 144/99
[2019-03-17] MEDS: LISINOPRIL 10 MG TABLET PO SCH (08:39)
[2019-03-17] MEDS: AmLODIPine BESYLATE 5 MG TABLET PO SCH (08:39)
[2019-03-17] MEDS: BENZONATATE 100 MG CAPSULE PO SCH ×3 (08:39→21:09)
[2019-03-17] MEDS: HYDROCODONE/ACETAMINOPHEN 5-325 MG TABLET PO PRN (08:39)
[2019-03-17] MEDS: FAMOTIDINE 20 MG TABLET PO SCH ×2 (08:39→21:09)
[2019-03-17] MEDS: ATORVASTATIN CALCIUM 10 MG TABLET PO SCH (08:39)
[2019-03-17] MEDS: MULTIVITAMINS WITH MINERALS, THERAPEUTIC TABLET PO SCH (08:39)
[2019-03-17] MEDS: GuaiFENesin/CODEINE [SUGAR FREE] 200-20MG/10 ML SYRUP UDCUP PO PRN (08:40)
[2019-03-17] MEDS: HEPARIN SODIUM,PORCINE 5,000 UNITS/ML VIAL SQ SCH ×2 (08:40→16:00)
[2019-03-17] MEDS: AZITHROMYCIN 500 MG/NS 250 ML IV SCH (08:48)
[2019-03-17] MEDS: GlyBURIDE 5 MG TABLET PO SCH ×2 (08:48→18:23)
[2019-03-17] MEDS: DOCUSATE SODIUM 100 MG CAPSULE PO SCH ×2 (09:00→21:09)
[2019-03-17 11:51] VITALS: BP 156/97
[2019-03-17] MEDS: MethylPREDNISolone SOD SUCC 40 MG/ML VIAL IVP SCH ×2 (12:00→18:48)
[2019-03-17 12:42] LABS: GLUCOMETER DEV NAME(LOC) 6N.2; GLUCOSE,POINT OF CARE 343 MG/DL (70-110)
[2019-03-17 16:21] VITALS: BP 144/112
[2019-03-17 20:00] VITALS: BP 163/98
[2019-03-17 20:13] LABS: GLUCOMETER DEV NAME(LOC) 6N.2; GLUCOSE,POINT OF CARE 365 MG/DL (70-110)
[2019-03-17] MEDS ORDERED: INSULIN GLARGINE,HUM.REC.ANLOG 100 UNITS/ML SQ SCH (21:00)
[2019-03-17 23:54] LABS: GLUCOMETER DEV NAME(LOC) 6N.2; GLUCOSE,POINT OF CARE 300 MG/DL (70-110)
[2019-03-18] MEDS: MethylPREDNISolone SOD SUCC 40 MG/ML VIAL IVP SCH ×2 (00:23→06:05)
[2019-03-18] MEDS: HEPARIN SODIUM,PORCINE 5,000 UNITS/ML VIAL SQ SCH ×4 (00:23→23:27)
[2019-03-18 04:43] VITALS: BP_SYST 138; BP_DIAS 7; BP_DIAS 87
[2019-03-18] MEDS: INSULIN LISPRO 100 UNITS/ML SQ PRN ×4 (06:57→20:19)
[2019-03-18 07:29] LABS: CALCIUM, TOTAL 9.3 mg/dL (8.8-10.5); CREATININE 1.26 mg/dL (0.60-1.30); POTASSIUM 3.9 mmol/L (3.5-5.1)
[2019-03-18] MEDS ORDERED: INSULIN LISPRO 100 UNITS/ML SQ ONE (07:45)
[2019-03-18] MEDS ORDERED: DEXTROSE 50%-WATER 25 GM/50 ML SYRINGE IVP PRN (08:00)
[2019-03-18] MEDS: AZITHROMYCIN 500 MG/NS 250 ML IV SCH (08:10)
[2019-03-18] MEDS: MULTIVITAMINS WITH MINERALS, THERAPEUTIC TABLET PO SCH (08:13)
[2019-03-18] MEDS: HYDROCODONE/ACETAMINOPHEN 5-325 MG TABLET PO PRN ×2 (08:13→20:11)
[2019-03-18] MEDS: DOCUSATE SODIUM 100 MG CAPSULE PO SCH ×2 (08:13→20:10)
[2019-03-18] MEDS: LISINOPRIL 10 MG TABLET PO SCH (08:14)
[2019-03-18] MEDS: AmLODIPine BESYLATE 5 MG TABLET PO SCH (08:14)
[2019-03-18] MEDS: ATORVASTATIN CALCIUM 10 MG TABLET PO SCH (08:14)
[2019-03-18] MEDS: GlyBURIDE 5 MG TABLET PO SCH ×2 (08:14→17:49)
[2019-03-18] MEDS: BENZONATATE 100 MG CAPSULE PO SCH ×3 (08:14→20:11)
[2019-03-18] MEDS: FAMOTIDINE 20 MG TABLET PO SCH ×2 (08:14→20:11)
[2019-03-18 08:17] VITALS: BP 151/102
[2019-03-18] MEDS ORDERED: SODIUM CHLORIDE 0.9% 500 ML IV ONE (08:45)
[2019-03-18] MEDS ORDERED: INSULIN GLARGINE,HUM.REC.ANLOG 100 UNITS/ML SQ SCH ×2 (09:00→21:00)
[2019-03-18 11:04] LABS: GLUCOMETER DEV NAME(LOC) 6N.2; GLUCOSE,POINT OF CARE > 600 MG/DL (70-110)
[2019-03-18 11:04] LABS: GLUCOMETER DEV NAME(LOC) 6N.2; GLUCOSE,POINT OF CARE 575 MG/DL (70-110)
[2019-03-18 12:02] VITALS: BP 143/87
[2019-03-18 12:42] LABS: GLUCOMETER DEV NAME(LOC) 6N.2; GLUCOSE,POINT OF CARE 250 MG/DL (70-110)
[2019-03-18] MEDS: GuaiFENesin/CODEINE [SUGAR FREE] 200-20MG/10 ML SYRUP UDCUP PO PRN ×2 (15:54→20:11)
[2019-03-18 16:31] VITALS: BP 152/95
[2019-03-18 20:23] VITALS: BP 137/84
[2019-03-18 21:44] LABS: GLUCOMETER DEV NAME(LOC) 6N.2; GLUCOSE,POINT OF CARE 258 MG/DL (70-110)
[2019-03-18 21:44] LABS: GLUCOMETER DEV NAME(LOC) 6N.2; GLUCOSE,POINT OF CARE 294 MG/DL (70-110)
[2019-03-19 05:00] VITALS: BP 152/93
[2019-03-19] MEDS: INSULIN LISPRO 100 UNITS/ML SQ PRN ×2 (05:00→12:10)
[2019-03-19 05:55] LABS: GLUCOMETER DEV NAME(LOC) 6N.2; GLUCOSE,POINT OF CARE 382 MG/DL (70-110)
[2019-03-19 07:43] VITALS: BP 130/93
[2019-03-19] MEDS: HEPARIN SODIUM,PORCINE 5,000 UNITS/ML VIAL SQ SCH (08:00)
[2019-03-19] MEDS: ATORVASTATIN CALCIUM 10 MG TABLET PO SCH (09:00)
[2019-03-19] MEDS ORDERED: INSULIN GLARGINE,HUM.REC.ANLOG 100 UNITS/ML SQ SCH (09:00)
[2019-03-19] MEDS: AZITHROMYCIN 500 MG/NS 250 ML IV SCH ×2 (10:00→10:29)
[2019-03-19] MEDS: GlyBURIDE 5 MG TABLET PO SCH ×2 (10:21→10:28)
[2019-03-19] MEDS: DOCUSATE SODIUM 100 MG CAPSULE PO SCH ×2 (10:21→10:28)
[2019-03-19] MEDS: MULTIVITAMINS WITH MINERALS, THERAPEUTIC TABLET PO SCH ×2 (10:22→10:30)
[2019-03-19] MEDS: FAMOTIDINE 20 MG TABLET PO SCH ×2 (10:22→10:28)
[2019-03-19] MEDS: BENZONATATE 100 MG CAPSULE PO SCH ×3 (10:22→10:49)
[2019-03-19] MEDS: LISINOPRIL 10 MG TABLET PO SCH ×2 (10:22→10:30)
[2019-03-19] MEDS: AmLODIPine BESYLATE 5 MG TABLET PO SCH ×2 (10:22→10:29)
[2019-03-19 11:30] VITALS: BP 133/95
[2019-03-19 12:34] LABS: GLUCOMETER DEV NAME(LOC) 6N.2; GLUCOSE,POINT OF CARE 266 MG/DL (70-110)
== END 2019-03-19 12:50 | disposition home or self-care (01) | DRG 140 ==
LOC: EMS 01:41 → 4E 08:07
PROVIDERS: ADMIT Internal Medicine; ATTEND Internal Medicine
DX: J44.1 Chronic obstructive pulmonary disease with (acute) exacerbation (principal); J96.01 Acute respiratory failure with hypoxia; E11.65 Type 2 diabetes mellitus with hyperglycemia; I25.10 Atherosclerotic heart disease of native coronary artery without angina pectoris; Z91.19 Patient's noncompliance with other medical treatment and regimen; F19.10 Other psychoactive substance abuse, uncomplicated; K21.9 Gastro-esophageal reflux disease without esophagitis; I10 Essential (primary) hypertension; F17.210 Nicotine dependence, cigarettes, uncomplicated; M54.30 Sciatica, unspecified side; F14.90 Cocaine use, unspecified, uncomplicated; F29 Unspecified psychosis not due to a substance or known physiological condition; Z88.1 Allergy status to other antibiotic agents; Z88.0 Allergy status to penicillin; Z91.013 Allergy to seafood; Z79.4 Long term (current) use of insulin
CPT/HCPCS: 83036; 87804; 93005; 93306; 94060; 94640; 94644; G0378; J0456; J1644; J1815; J2920; J2930; J3475; J7040

== ENCOUNTER 2019-03-21 06:10 | Emergency (ER) | payer OTHER ==
[~2019-03-21] VITALS: Ht 162.6 cm; Wt 59.1 kg
[2019-03-21] MEDS ORDERED: QUET100T PO (06:18)
[2019-03-21] MEDS ORDERED: IPRATROPIUM BROMIDE 0.5 MG/2.5 ML NEB SOLUTION NEB ONE (06:30)
[2019-03-21] MEDS ORDERED: ALBUTEROL SULFATE 5 MG/ML 20 ML NEB SOLN [BULK] NEB ONE (06:30)
[2019-03-21 06:36] LABS: GLUCOSE,POINT OF CARE 322 MG/DL (70-110)
[2019-03-21] MEDS ORDERED: ACETAMINOPHEN 500 MG TABLET PO ONE (07:45)
[2019-03-21] MEDS ORDERED: 0.9% SODIUM CHLORIDE 15 ML NEB SOLUTION NEB ONE (07:52)
[2019-03-21 10:12] VITALS: BP 140/86
== END 2019-03-21 10:55 | disposition home or self-care (01) ==
LOC: EMS 06:10
DX: J44.1 Chronic obstructive pulmonary disease with (acute) exacerbation (principal); J45.901 Unspecified asthma with (acute) exacerbation; F31.9 Bipolar disorder, unspecified; E11.9 Type 2 diabetes mellitus without complications; K21.9 Gastro-esophageal reflux disease without esophagitis; I10 Essential (primary) hypertension; F17.210 Nicotine dependence, cigarettes, uncomplicated; F14.90 Cocaine use, unspecified, uncomplicated; Z88.0 Allergy status to penicillin; Z79.899 Other long term (current) drug therapy; Z79.4 Long term (current) use of insulin
CPT/HCPCS: 94644

== ENCOUNTER 2019-05-11 07:52 | Emergency (ER) | payer OTHER ==
[~2019-05-11] VITALS: Ht 162.6 cm; Wt 72.7 kg
[~2019-05-11 07:52] MED LIST changes: -BENZ-51 PO; -PRED10 PO; +QUET100T PO
[2019-05-11] MEDS ORDERED: IPRATROPIUM BROMIDE 0.5 MG/2.5 ML NEB SOLUTION NEB ONE (08:30)
[2019-05-11] MEDS ORDERED: ALBUTEROL SULFATE 5 MG/ML 20 ML NEB SOLN [BULK] NEB ONE (08:30)
[2019-05-11] MEDS ORDERED: PredniSONE 20 MG TABLET PO ONE (08:30)
[2019-05-11] MEDS ORDERED: 0.9% SODIUM CHLORIDE 15 ML NEB SOLUTION NEB ONE ×2 (08:43→10:40)
[2019-05-11 08:58] LABS: BASOPHILS % (AUTO) 1.9 % (0.0-2.0); EOSINOPHILS % (AUTO) 2.3 % (1.0-6.0); HEMATOCRIT 43.3 % (36-46); HEMOGLOBIN 14.6 g/dL (12.0-16.0); LYMPHOCYTES # (AUTO) 1.3 K/uL (1.0-4.8); LYMPHOCYTES % (AUTO) 38.2 % (22.0-44.0); MEAN CORPUSCULAR HGB CONC 33.7 G/dL (31.0-37.0); MEAN CORPUSCULAR VOLUME 95 fL (80-100); MONOCYTES # (AUTO) 0.3 K/uL (0.1-1.0); MONOCYTES % (AUTO) 9.2 % (2.0-9.0); NEUTROPHILS # (AUTO) 1.6 K/uL (1.8-7.7); NEUTROPHILS % (AUTO) 48.4 % (40.0-70.0); PLATELET COUNT (AUTO) 219 K/uL (150-450); RED BLOOD CELL COUNT(AUTO) 4.56 MIL/uL (4.00-5.20); RED CELL DISTRIBUTION WIDTH 13.8 % (11.5-14.5)
[2019-05-11 09:05] LABS: ANION GAP 7 mmol/L (8-16); CALCIUM, TOTAL 9.5 mg/dL (8.8-10.5); CARBON DIOXIDE 28 mmol/L (22-29); CHLORIDE 95 mmol/L (98-107); CREATININE 1.08 mg/dL (0.60-1.30); GLOMERULAR FILTR. RATE CALC > 60 mL/min (>60); GLUCOSE,RANDOM 393 mg/dL (70-110); POTASSIUM 3.9 mmol/L (3.5-5.1); SODIUM SERUM 130 mmol/L (136-145); UREA NITROGEN, BLOOD 11 mg/dL (7-18)
[2019-05-11 09:12] LABS: ALANINE AMINOTRANSFERASE 35 U/L (12-78); ALBUMIN 3.6 g/dL (3.4-5.0); ALKALINE PHOSPHATASE 82 U/L (46-116); ASPARTATE AMINOTRANSFERASE 23 U/L (15-37); BILIRUBIN,TOTAL 0.9 mg/dL (0.1-1.0); TOTAL PROTEIN, SERUM 7.3 g/dL (6.4-8.2)
[2019-05-11] MEDS ORDERED: ACETAMINOPHEN 500 MG TABLET PO ONE (10:45)
[2019-05-11] MEDS: ALBUTEROL SULFATE 5 MG/ML 20 ML NEB SOLN [BULK] NEB ONE ×2 (11:37→12:53)
[2019-05-11 14:08] VITALS: BP 138/80
== END 2019-05-11 14:41 | disposition home or self-care (01) ==
LOC: EMS 07:55
DX: J44.1 Chronic obstructive pulmonary disease with (acute) exacerbation (principal); J45.901 Unspecified asthma with (acute) exacerbation; F17.210 Nicotine dependence, cigarettes, uncomplicated; F31.9 Bipolar disorder, unspecified; E11.9 Type 2 diabetes mellitus without complications; K21.9 Gastro-esophageal reflux disease without esophagitis; I10 Essential (primary) hypertension; F14.90 Cocaine use, unspecified, uncomplicated; Z79.4 Long term (current) use of insulin; Z79.899 Other long term (current) drug therapy; Z88.1 Allergy status to other antibiotic agents; Z88.0 Allergy status to penicillin
CPT/HCPCS: 36415; 71046; 80053; 82962; 85025; 93005; 94640; 94644; 99285; 99406; J7512

== ENCOUNTER 2019-05-21 07:07 | Emergency (ER) | payer OTHER ==
[~2019-05-21] VITALS: Ht 162.6 cm; Wt 72.7 kg
[2019-05-21 07:33] LABS: GLUCOSE,POINT OF CARE 306 MG/DL (70-110)
[2019-05-21] MEDS ORDERED: IPRATROPIUM BROMIDE 0.5 MG/2.5 ML NEB SOLUTION NEB ONE ×2 (08:00→09:15)
[2019-05-21] MEDS ORDERED: ALBUTEROL SULFATE 2.5 MG/0.5 ML NEB SOLUTION NEB ONE (08:00)
[2019-05-21] MEDS ORDERED: ALBUTEROL SULFATE 5 MG/ML 20 ML NEB SOLN [BULK] NEB ONE (09:15)
[2019-05-21 12:29] VITALS: BP 163/64
== END 2019-05-21 12:42 | disposition home or self-care (01) ==
LOC: EMS 07:09
DX: J44.1 Chronic obstructive pulmonary disease with (acute) exacerbation (principal); J45.909 Unspecified asthma, uncomplicated; E11.9 Type 2 diabetes mellitus without complications; I10 Essential (primary) hypertension; K21.9 Gastro-esophageal reflux disease without esophagitis; F17.210 Nicotine dependence, cigarettes, uncomplicated; F31.9 Bipolar disorder, unspecified; F11.90 Opioid use, unspecified, uncomplicated; Z79.4 Long term (current) use of insulin; Z88.0 Allergy status to penicillin; Z98.890 Other specified postprocedural states; Z79.899 Other long term (current) drug therapy; Z88.1 Allergy status to other antibiotic agents
CPT/HCPCS: 94640; 94644

== ENCOUNTER 2019-05-25 07:44 | Emergency (ER) | payer OTHER ==
[~2019-05-25] VITALS: Ht 165.1 cm; Wt 68.2 kg
[2019-05-25] MEDS ORDERED: MethylPREDNISolone SOD SUCC 125 MG/2 ML VIAL IVP ONE (08:00)
[2019-05-25] MEDS ORDERED: IPRATROPIUM BROMIDE 0.5 MG/2.5 ML NEB SOLUTION NEB ONE (08:00)
[2019-05-25] MEDS ORDERED: ALBUTEROL SULFATE 2.5 MG/0.5 ML NEB SOLUTION NEB ONE (08:00)
[2019-05-25 08:50] LABS: BASOPHILS % (AUTO) 0.9 % (0.0-2.0); EOSINOPHILS % (AUTO) 1.3 % (1.0-6.0); HEMATOCRIT 48.5 % (36-46); HEMOGLOBIN 16.2 g/dL (12.0-16.0); LYMPHOCYTES # (AUTO) 2.6 K/uL (1.0-4.8); LYMPHOCYTES % (AUTO) 43.6 % (22.0-44.0); MEAN CORPUSCULAR HEMOGLOBIN 31.8 pg (26.0-34.0); MEAN CORPUSCULAR HGB CONC 33.5 G/dL (31.0-37.0); MEAN CORPUSCULAR VOLUME 95 fL (80-100); MONOCYTES # (AUTO) 0.4 K/uL (0.1-1.0); NEUTROPHILS # (AUTO) 2.8 K/uL (1.8-7.7); NEUTROPHILS % (AUTO) 47.2 % (40.0-70.0); PLATELET COUNT (AUTO) 230 K/uL (150-450); RED BLOOD CELL COUNT(AUTO) 5.11 MIL/uL (4.00-5.20); RED CELL DISTRIBUTION WIDTH 14.1 % (11.5-14.5)
[2019-05-25 09:03] LABS: ANION GAP 9 mmol/L (8-16); CALCIUM, TOTAL 9.7 mg/dL (8.8-10.5); CARBON DIOXIDE 26 mmol/L (22-29); CHLORIDE 98 mmol/L (98-107); CREATININE 0.87 mg/dL (0.60-1.30); GLOMERULAR FILTR. RATE CALC > 60 mL/min (>60); GLUCOSE,RANDOM 243 mg/dL (70-110); POTASSIUM 4.1 mmol/L (3.5-5.1); SODIUM SERUM 133 mmol/L (136-145); UREA NITROGEN, BLOOD 7 mg/dL (7-18)
[2019-05-25 09:25] LABS: INFLUENZA TYPE A NEGATIVE FOR TYPE A (NEGATIVE); INFLUENZA TYPE B NEGATIVE FOR TYPE B (NEGATIVE)
[2019-05-25] MEDS ORDERED: ACETAMINOPHEN 500 MG TABLET PO ONE (09:30)
[2019-05-25 09:37] LABS: ALANINE AMINOTRANSFERASE 47 U/L (12-78); ALBUMIN 4.1 g/dL (3.4-5.0); ALKALINE PHOSPHATASE 98 U/L (46-116); ASPARTATE AMINOTRANSFERASE 39 U/L (15-37); BILIRUBIN,TOTAL 0.5 mg/dL (0.1-1.0); CREATINE KINASE, TOTAL ONLY 104 U/L (26-192); TOTAL PROTEIN, SERUM 8.3 g/dL (6.4-8.2)
[2019-05-25 09:41] LABS: B-TYPE NATRIURETIC PEPTIDE 11 pg/mL (0-100)
[2019-05-25] MEDS ORDERED: ALBUTEROL SULFATE HFA 90 MCG/PUFF 8 GM INHALER IH ONE (10:00)
[2019-05-25 10:04] VITALS: BP 149/98
== END 2019-05-25 11:24 | disposition home or self-care (01) ==
LOC: EMS 07:48
DX: J44.9 Chronic obstructive pulmonary disease, unspecified (principal); F31.9 Bipolar disorder, unspecified; E11.9 Type 2 diabetes mellitus without complications; K21.9 Gastro-esophageal reflux disease without esophagitis; I10 Essential (primary) hypertension; F17.210 Nicotine dependence, cigarettes, uncomplicated; F14.90 Cocaine use, unspecified, uncomplicated; Z88.1 Allergy status to other antibiotic agents; Z88.0 Allergy status to penicillin; Z79.4 Long term (current) use of insulin; Z79.899 Other long term (current) drug therapy; Z03.818 Encounter for observation for suspected exposure to other biological agents ruled out
CPT/HCPCS: 36415; 71045; 80053; 82550; 82962; 83880; 84484; 85025; 85610; 85730; 87635; 87804; 93005; 94640; 96374; 99285; J2930; 94060; J3535

== ENCOUNTER 2019-06-24 05:44 | Emergency (ER) | payer OTHER ==
[~2019-06-24] VITALS: Ht 157.5 cm; Wt 59.1 kg
[2019-06-24] MEDS ORDERED: PredniSONE 20 MG TABLET PO ONE (06:15)
[2019-06-24] MEDS ORDERED: ALBUTEROL SULFATE HFA 90 MCG/PUFF 8 GM INHALER IH ONE (06:15)
[2019-06-24 06:45] LABS: GLUCOMETER DEV NAME(LOC) AHU.; GLUCOSE,POINT OF CARE 251 MG/DL (70-110)
[2019-06-24 07:31] VITALS: BP 135/82
[2019-06-24] MEDS ORDERED: ACETAMINOPHEN 500 MG TABLET PO ONE (09:30)
== END 2019-06-24 09:45 | disposition home or self-care (01) ==
LOC: EMS 05:48
DX: J44.1 Chronic obstructive pulmonary disease with (acute) exacerbation (principal); J45.901 Unspecified asthma with (acute) exacerbation; F10.129 Alcohol abuse with intoxication, unspecified; F31.9 Bipolar disorder, unspecified; E11.9 Type 2 diabetes mellitus without complications; K21.9 Gastro-esophageal reflux disease without esophagitis; I10 Essential (primary) hypertension; F17.210 Nicotine dependence, cigarettes, uncomplicated; F14.90 Cocaine use, unspecified, uncomplicated; Z79.899 Other long term (current) drug therapy; Z79.4 Long term (current) use of insulin; Z88.1 Allergy status to other antibiotic agents; Z88.0 Allergy status to penicillin
CPT/HCPCS: 82962; 94640; 99283; 99406; J7512; 82948; J3535

== ENCOUNTER 2020-01-20 20:44 | Inpatient (IN) | payer OTHER ==
[~2020-01-20] VITALS: Ht 167.6 cm; Wt 65.5 kg
[~2020-01-20 20:44] MED LIST changes: +AMLO-257 PO; -AMLO5TAB9 PO; +PANT-31 PO; -PANT40TA25 PO
[2020-01-20 22:30] LABS: BASOPHILS % (AUTO) 0.8 % (0.0-2.0); EOSINOPHILS % (AUTO) 5.2 % (1.0-6.0); HEMATOCRIT 42.2 % (36-46); HEMOGLOBIN 13.9 g/dL (12.0-16.0); LYMPHOCYTES % (AUTO) 30.5 % (22.0-44.0); MEAN CORPUSCULAR HEMOGLOBIN 31.1 pg (26.0-34.0); MEAN CORPUSCULAR VOLUME 94 fL (80-100); MONOCYTES # (AUTO) 0.3 K/uL (0.1-1.0); MONOCYTES % (AUTO) 4.1 % (2.0-9.0); NEUTROPHILS # (AUTO) 3.8 K/uL (1.8-7.7); NEUTROPHILS % (AUTO) 59.4 % (40.0-70.0); PLATELET COUNT (AUTO) 248 K/uL (150-450); RED BLOOD CELL COUNT(AUTO) 4.47 MIL/uL (4.00-5.20)
[2020-01-20 22:32] LABS: ANION GAP 12 mmol/L (8-16); CALCIUM, TOTAL 9.7 mg/dL (8.8-10.5); CARBON DIOXIDE 26 mmol/L (22-29); CHLORIDE 97 mmol/L (98-107); CREATININE 0.75 mg/dL (0.60-1.30); GLOMERULAR FILTR. RATE CALC > 60 mL/min (>60); GLUCOSE,RANDOM 186 mg/dL (70-110); POTASSIUM 3.4 mmol/L (3.5-5.1); SODIUM SERUM 135 mmol/L (136-145); UREA NITROGEN, BLOOD 10 mg/dL (7-18)
[2020-01-20 22:36] LABS: COVID AG,FIA SOURCE NASOPHARYNGEAL
[2020-01-20 22:39] LABS: INR 0.9 (0.9-1.1)
[2020-01-20 22:58] LABS: ALANINE AMINOTRANSFERASE 20 U/L (12-78); ALKALINE PHOSPHATASE 78 U/L (46-116); ASPARTATE AMINOTRANSFERASE 14 U/L (15-37); BILIRUBIN,TOTAL 0.2 mg/dL (0.1-1.0); CREATINE KINASE, TOTAL ONLY 94 U/L (26-192); TOTAL PROTEIN, SERUM 8.2 g/dL (6.4-8.2)
[2020-01-20 23:10] LABS: B-TYPE NATRIURETIC PEPTIDE 6 pg/mL (0-100)
[2020-01-20] MEDS ORDERED: IPRATROPIUM BROMIDE 0.5 MG/2.5 ML NEB SOLUTION NEB ONE (23:15)
[2020-01-20] MEDS ORDERED: MethylPREDNISolone SOD SUCC 125 MG/2 ML VIAL IVP ONE (23:15)
[2020-01-20] MEDS ORDERED: ALBUTEROL SULFATE 5 MG/ML 20 ML NEB SOLN [BULK] NEB ONE (23:15)
[2020-01-20 23:17] LABS: LIPASE 144 U/L (73-393)
[2020-01-20] MEDS ORDERED: 0.9% SODIUM CHLORIDE 15 ML NEB SOLUTION NEB ONE (23:39)
[2020-01-21] MEDS ORDERED: SODIUM CHLORIDE 0.9% 100 ML ONE (00:12)
[2020-01-21] MEDS ORDERED: IOVERSOL 350 MG/ML 100 ML VIAL ONE (00:12)
[2020-01-21] MEDS ORDERED: 0.9% SODIUM CHLORIDE 10 ML SYRINGE IVP PRN (02:00)
[2020-01-21] MEDS ORDERED: ALBUTEROL SULFATE 2.5 MG/0.5 ML NEB SOLUTION NEB SCH (02:00)
[2020-01-21] MEDS ORDERED: ONDANSETRON HCL 4 MG/2 ML VIAL IVP PRN ×2 (02:00→06:30)
[2020-01-21] MEDS ORDERED: IPRATROPIUM BROMIDE 0.5 MG/2.5 ML NEB SOLUTION NEB SCH (02:00)
[2020-01-21] MEDS ORDERED: ACETAMINOPHEN 325 MG TABLET PO PRN (02:00)
[2020-01-21 05:00] VITALS: BP 164/83
[2020-01-21] MEDS ORDERED: IPRATROPIUM BROMIDE 0.5 MG/2.5 ML NEB SOLUTION NEB PRN (06:30)
[2020-01-21] MEDS ORDERED: HYDROCODONE/ACETAMINOPHEN 5-325 MG TABLET PO PRN (06:30)
[2020-01-21] MEDS ORDERED: ZOLPIDEM TARTRATE 5 MG TABLET PO PRN (06:30)
[2020-01-21] MEDS ORDERED: BISACODYL 10 MG RECTAL RECTAL SUPPOSITORY PR PRN (06:30)
[2020-01-21] MEDS ORDERED: MORPHINE SULFATE 2 MG/ML SYRINGE IVP PRN (06:30)
[2020-01-21] MEDS ORDERED: MAGNESIUM HYDROXIDE SUSPENSION 30 ML UDCUP PO PRN (06:30)
[2020-01-21] MEDS ORDERED: ALBUTEROL SULFATE 2.5 MG/0.5 ML NEB SOLUTION NEB PRN (06:30)
[2020-01-21 07:32] VITALS: BP 136/83
[2020-01-21] MEDS: AmLODIPine BESYLATE 5 MG TABLET PO SCH (08:14)
[2020-01-21] MEDS: QUEtiapine FUMARATE 100 MG TABLET PO SCH (08:14)
[2020-01-21] MEDS: GlyBURIDE 5 MG TABLET PO SCH ×2 (08:14→17:05)
[2020-01-21] MEDS: HEPARIN SODIUM,PORCINE 5,000 UNITS/ML VIAL SQ SCH ×3 (08:14→23:51)
[2020-01-21] MEDS: GuaiFENesin SR 600 MG ER TABLET PO SCH ×2 (08:15→21:00)
[2020-01-21] MEDS: ATORVASTATIN CALCIUM 10 MG TABLET PO SCH (08:15)
[2020-01-21] MEDS: LISINOPRIL 10 MG TABLET PO SCH (08:15)
[2020-01-21] MEDS: DOCUSATE SODIUM 100 MG CAPSULE PO SCH ×2 (08:15→21:00)
[2020-01-21] MEDS: BENZONATATE 100 MG CAPSULE PO SCH ×3 (08:15→21:01)
[2020-01-21] MEDS: ALBUTEROL SULFATE 2.5 MG/0.5 ML NEB SOLUTION NEB SCH ×3 (08:54→19:25)
[2020-01-21] MEDS: IPRATROPIUM BROMIDE 0.5 MG/2.5 ML NEB SOLUTION NEB SCH ×3 (08:54→19:25)
[2020-01-21] MEDS ORDERED: SODIUM CHLORIDE 0.9% 250 ML IV ONE (08:57)
[2020-01-21] MEDS: AZITHROMYCIN 500 MG/NS 250 ML IV SCH (09:12)
[2020-01-21] MEDS: PANTOPRAZOLE SODIUM 40 MG DR TABLET PO SCH (09:12)
[2020-01-21] MEDS: INSULIN GLARGINE,HUM.REC.ANLOG 100 UNITS/ML SQ SCH ×2 (09:13→21:02)
[2020-01-21 09:30] LABS: GLUCOMETER DEV NAME(LOC) 5S.1; GLUCOSE,POINT OF CARE 442 MG/DL (70-110)
[2020-01-21] MEDS: ACETAMINOPHEN 325 MG TABLET PO PRN ×2 (10:15→21:01)
[2020-01-21] MEDS ORDERED: DEXTROSE 50%-WATER 25 GM/50 ML SYRINGE IVP PRN (10:15)
[2020-01-21] MEDS ORDERED: INSULIN LISPRO 100 UNITS/ML SQ ONE (10:30)
[2020-01-21 10:58] VITALS: BP 157/87
[2020-01-21] MEDS: MethylPREDNISolone SOD SUCC 125 MG/2 ML VIAL IVP SCH ×3 (11:17→23:52)
[2020-01-21] MEDS: POLYETHYLENE GLYCOL 3350 17 GM PACKET PO SCH (11:17)
[2020-01-21] MEDS: INSULIN LISPRO 100 UNITS/ML SQ PRN ×3 (12:16→21:03)
[2020-01-21 13:09] LABS: GLUCOMETER DEV NAME(LOC) 5S.1; GLUCOSE,POINT OF CARE 231 MG/DL (70-110)
[2020-01-21 15:46] VITALS: BP 153/86
[2020-01-21 18:20] LABS: GLUCOMETER DEV NAME(LOC) 5S.1; GLUCOSE,POINT OF CARE 224 MG/DL (70-110)
[2020-01-21] MEDS: BUDESONIDE 0.5 MG/2 ML NEB SOLUTION NEB SCH (19:25)
[2020-01-21 20:33] VITALS: BP 152/86
[2020-01-21 20:45] LABS: APPEARANCE,URINE CLOUDY (CLEAR); BILIRUBIN,URINE NEGATIVE (NEGATIVE); GLUCOSE, URINE (UA) >=1000 mg/dL (NEGATIVE); KETONES,URINE NEGATIVE (NEGATIVE); LEUKOCYTE ESTERASE ,URINE NEGATIVE (NEGATIVE); NITRATE,URINE NEGATIVE (NEGATIVE); OCCULT BLOOD,URINE NEGATIVE (NEGATIVE); PH,URINE 5.5 (5.0-8.0); PROTEIN,URINE NEGATIVE (NEGATIVE); UROBILINOGEN,URINE 0.2 mg/dL (<=1.0)
[2020-01-21 20:49] LABS: AMPHET/METH SCREEN,URINE NEGATIVE (NEGATIVE); BARBITURATE SCREEN, URINE NEGATIVE (NEGATIVE); BENZODIAZEPINES SCREEN,URINE NEGATIVE (NEGATIVE); CANNABINOID SCREEN,URINE NEGATIVE (NEGATIVE); COCAINE SCREEN,URINE POSITIVE (NEGATIVE); METHADONE SCREEN, URINE NEGATIVE (NEGATIVE); OPIATE SCREEN,URINE NEGATIVE (NEGATIVE)
[2020-01-21 20:51] LABS: PHENCYCLIDINE SCREEN,URINE NEGATIVE (NEGATIVE)
[2020-01-21] MEDS ORDERED: QUEtiapine FUMARATE 25 MG TABLET PO SCH (21:00)
[2020-01-21 21:01] LABS: BACTERIA,URINE Many /HPF (None Seen)
[2020-01-21 21:02] LABS: RBC,URINE 0-2 /HPF (0-2); SQUAMOUS EPITHELIAL CELL,UR Few /LPF (None Seen)
[2020-01-21] MEDS: GuaiFENesin [SUGAR-FREE] 200 MG/10 ML SOLUTION UDCUP PO PRN (21:50)
[2020-01-21 23:56] VITALS: BP 142/64
[2020-01-22] MEDS: IPRATROPIUM BROMIDE 0.5 MG/2.5 ML NEB SOLUTION NEB SCH ×3 (01:57→13:16)
[2020-01-22] MEDS: ALBUTEROL SULFATE 2.5 MG/0.5 ML NEB SOLUTION NEB SCH ×3 (01:57→13:15)
[2020-01-22 03:25] LABS: GLUCOMETER DEV NAME(LOC) 5N.3; GLUCOSE,POINT OF CARE 340 MG/DL (70-110)
[2020-01-22 04:00] VITALS: BP 144/79
[2020-01-22] MEDS: MethylPREDNISolone SOD SUCC 125 MG/2 ML VIAL IVP SCH ×2 (06:00→11:23)
[2020-01-22] MEDS: INSULIN LISPRO 100 UNITS/ML SQ PRN ×2 (06:02→11:20)
[2020-01-22] MEDS: GuaiFENesin [SUGAR-FREE] 200 MG/10 ML SOLUTION UDCUP PO PRN (06:06)
[2020-01-22 06:42] LABS: BASOPHILS % (AUTO) 0.2 % (0.0-2.0); EOSINOPHILS % (AUTO) 0 % (1.0-6.0); HEMOGLOBIN 12.8 g/dL (12.0-16.0); LYMPHOCYTES % (AUTO) 12.2 % (22.0-44.0); MEAN CORPUSCULAR HGB CONC 34.7 G/dL (31.0-37.0); MEAN CORPUSCULAR VOLUME 92 fL (80-100); MONOCYTES # (AUTO) 0.2 K/uL (0.1-1.0); MONOCYTES % (AUTO) 1.9 % (2.0-9.0); NEUTROPHILS # (AUTO) 7.1 K/uL (1.8-7.7); PLATELET COUNT (AUTO) 237 K/uL (150-450); RED BLOOD CELL COUNT(AUTO) 4.01 MIL/uL (4.00-5.20); RED CELL DISTRIBUTION WIDTH 13.6 % (11.5-14.5)
[2020-01-22 06:55] LABS: NEUTROPHILS % (AUTO) 85.7 % (40.0-70.0)
[2020-01-22 07:14] LABS: ALANINE AMINOTRANSFERASE 19 U/L (12-78); ALBUMIN 3.6 g/dL (3.4-5.0); ALKALINE PHOSPHATASE 72 U/L (46-116); ANION GAP 10 mmol/L (8-16); ASPARTATE AMINOTRANSFERASE 11 U/L (15-37); BILIRUBIN,TOTAL 0.3 mg/dL (0.1-1.0); CALCIUM, TOTAL 9.3 mg/dL (8.8-10.5); CARBON DIOXIDE 25 mmol/L (22-29); CHLORIDE 97 mmol/L (98-107); CREATININE 0.84 mg/dL (0.60-1.30); GLOMERULAR FILTR. RATE CALC > 60 mL/min (>60); GLUCOSE,RANDOM 276 mg/dL (70-110); SODIUM SERUM 132 mmol/L (136-145); TOTAL PROTEIN, SERUM 7.6 g/dL (6.4-8.2); UREA NITROGEN, BLOOD 15 mg/dL (7-18)
[2020-01-22] MEDS: HEPARIN SODIUM,PORCINE 5,000 UNITS/ML VIAL SQ SCH (08:00)
[2020-01-22 08:02] VITALS: BP 157/96
[2020-01-22] MEDS: BUDESONIDE 0.5 MG/2 ML NEB SOLUTION NEB SCH (08:19)
[2020-01-22] MEDS: POLYETHYLENE GLYCOL 3350 17 GM PACKET PO SCH (08:39)
[2020-01-22] MEDS: GuaiFENesin SR 600 MG ER TABLET PO SCH (08:39)
[2020-01-22] MEDS: BENZONATATE 100 MG CAPSULE PO SCH (08:40)
[2020-01-22] MEDS: PANTOPRAZOLE SODIUM 40 MG DR TABLET PO SCH (08:40)
[2020-01-22] MEDS: LISINOPRIL 10 MG TABLET PO SCH (08:40)
[2020-01-22] MEDS: AmLODIPine BESYLATE 5 MG TABLET PO SCH (08:41)
[2020-01-22] MEDS: DOCUSATE SODIUM 100 MG CAPSULE PO SCH (08:41)
[2020-01-22] MEDS: AZITHROMYCIN 500 MG/NS 250 ML IV SCH (08:41)
[2020-01-22] MEDS: ATORVASTATIN CALCIUM 10 MG TABLET PO SCH (08:41)
[2020-01-22] MEDS: GlyBURIDE 5 MG TABLET PO SCH (08:41)
[2020-01-22] MEDS: INSULIN GLARGINE,HUM.REC.ANLOG 100 UNITS/ML SQ SCH (08:45)
[2020-01-22] MEDS: QUEtiapine FUMARATE 100 MG TABLET PO SCH (08:52)
[2020-01-22 11:43] VITALS: BP 130/79
[2020-01-22] MEDS ORDERED: BENZ100C68 PO (14:21)
[2020-01-22] MEDS ORDERED: AUD NEB (14:21)
[2020-01-22] MEDS ORDERED: IPRNEB IH (14:21)
[2020-01-22] MEDS ORDERED: PRED20 PO (14:21)
[2020-01-22] MEDS ORDERED: PRED10 PO (14:21)
[2020-01-22] MEDS ORDERED: PRED5 PO (14:21)
[2020-01-22 21:58] LABS: GLUCOMETER DEV NAME(LOC) 5S.1; GLUCOSE,POINT OF CARE 189 MG/DL (70-110)
[2020-01-22 21:58] LABS: GLUCOMETER DEV NAME(LOC) 5S.1; GLUCOSE,POINT OF CARE 270 MG/DL (70-110)
== END 2020-01-22 15:55 | disposition home or self-care (01) | DRG 140 ==
LOC: EMS 20:48 → 5S 01-21 01:30
PROVIDERS: ADMIT Internal Medicine; ATTEND Internal Medicine
DX: J44.1 Chronic obstructive pulmonary disease with (acute) exacerbation (principal); E11.9 Type 2 diabetes mellitus without complications; E87.6 Hypokalemia; F14.90 Cocaine use, unspecified, uncomplicated; F17.200 Nicotine dependence, unspecified, uncomplicated; I10 Essential (primary) hypertension; J45.901 Unspecified asthma with (acute) exacerbation; K21.9 Gastro-esophageal reflux disease without esophagitis; K59.00 Constipation, unspecified; M54.30 Sciatica, unspecified side; Z85.41 Personal history of malignant neoplasm of cervix uteri; Z90.710 Acquired absence of both cervix and uterus; Z88.0 Allergy status to penicillin; Z88.1 Allergy status to other antibiotic agents; R00.0 Tachycardia, unspecified; Z20.828 Contact with and (suspected) exposure to other viral communicable diseases
CPT/HCPCS: 74019; 74177; 80307; 87086; 87426; 93005; 94640; G0378; J0456; J1644; J1815; J2930; J7050; 36415-L1; 36415-TC; 71045-TC; J7611; J7613

== ENCOUNTER 2020-02-15 18:45 | Emergency (ER) | payer OTHER ==
[~2020-02-15] VITALS: Ht 162.6 cm; Wt 65.9 kg
[~2020-02-15 18:45] MED LIST changes: +BENZ100C68 PO; +PRED10 PO; +PRED20 PO; +PRED5 PO
[2020-02-15] MEDS ORDERED: ALBUTEROL SULFATE 5 MG/ML 20 ML NEB SOLN [BULK] NEB ONE (19:45)
[2020-02-15] MEDS ORDERED: 0.9% SODIUM CHLORIDE 15 ML NEB SOLUTION NEB ONE (20:12)
[2020-02-15 20:44] LABS: COVID AG,FIA SOURCE NASOPHARYNGEAL
[2020-02-15 20:46] LABS: GLUCOSE,POINT OF CARE 342 MG/DL (70-110)
[2020-02-15 20:48] LABS: BASOPHILS % (AUTO) 1.2 % (0.0-2.0); EOSINOPHILS % (AUTO) 2.1 % (1.0-6.0); HEMATOCRIT 41.8 % (36-46); LYMPHOCYTES # (AUTO) 1.4 K/uL (1.0-4.8); LYMPHOCYTES % (AUTO) 28.1 % (22.0-44.0); MEAN CORPUSCULAR HEMOGLOBIN 31.4 pg (26.0-34.0); MEAN CORPUSCULAR HGB CONC 33.5 G/dL (31.0-37.0); MEAN CORPUSCULAR VOLUME 94 fL (80-100); MONOCYTES # (AUTO) 0.4 K/uL (0.1-1.0); MONOCYTES % (AUTO) 7.4 % (2.0-9.0); NEUTROPHILS % (AUTO) 61.2 % (40.0-70.0); PLATELET COUNT (AUTO) 250 K/uL (150-450); RED BLOOD CELL COUNT(AUTO) 4.46 MIL/uL (4.00-5.20); RED CELL DISTRIBUTION WIDTH 13.9 % (11.5-14.5)
[2020-02-15 20:51] LABS: CALCIUM, TOTAL 9.4 mg/dL (8.8-10.5); CREATININE 1.37 mg/dL (0.60-1.30); POTASSIUM 4.2 mmol/L (3.5-5.1)
[2020-02-15 20:56] LABS: ALBUMIN 3.5 g/dL (3.4-5.0); BILIRUBIN,TOTAL 0.2 mg/dL (0.1-1.0); TOTAL PROTEIN, SERUM 7.6 g/dL (6.4-8.2)
[2020-02-15] MEDS ORDERED: INSULIN REGULAR, HUMAN 100 UNITS/ML IVP ONE (21:00)
[2020-02-15] MEDS ORDERED: ACETAMINOPHEN 325 MG TABLET PO ONE (21:15)
[2020-02-15 21:16] LABS: INFLUENZA TYPE A NEGATIVE FOR TYPE A (NEGATIVE); INFLUENZA TYPE B NEGATIVE FOR TYPE B (NEGATIVE)
[2020-02-15 22:17] VITALS: BP 142/93
[2020-02-15 23:15] LABS: GLUCOSE,POINT OF CARE 204 MG/DL (70-110)
== END 2020-02-15 23:44 | disposition home or self-care (01) ==
LOC: EMS 18:45
DX: J44.9 Chronic obstructive pulmonary disease, unspecified (principal); E11.65 Type 2 diabetes mellitus with hyperglycemia; K21.9 Gastro-esophageal reflux disease without esophagitis; I10 Essential (primary) hypertension; F17.210 Nicotine dependence, cigarettes, uncomplicated; F14.90 Cocaine use, unspecified, uncomplicated; Z79.899 Other long term (current) drug therapy; Z79.4 Long term (current) use of insulin; Z88.0 Allergy status to penicillin; Z88.1 Allergy status to other antibiotic agents; Z20.828 Contact with and (suspected) exposure to other viral communicable diseases
CPT/HCPCS: 36415; 71045; 80053; 82962; 83690; 83880; 84484; 85025; 87426; 87804; 93005; 96374; 99291; J1815; U0003; 82948; J7611

== ENCOUNTER 2020-04-04 02:23 | Emergency (ER) | payer OTHER ==
[~2020-04-04] VITALS: Ht 162.6 cm; Wt 63.6 kg
[~2020-04-04 02:23] MED LIST changes: -LISI-661 PO; +LISI-893 PO
[2020-04-04] MEDS ORDERED: MethylPREDNISolone SOD SUCC 125 MG/2 ML VIAL IM ONE (03:00)
[2020-04-04] MEDS ORDERED: IPRATROPIUM BROMIDE 0.5 MG/2.5 ML NEB SOLUTION NEB ONE (03:00)
[2020-04-04] MEDS ORDERED: ALBUTEROL SULFATE 5 MG/ML 20 ML NEB SOLN [BULK] NEB ONE (03:00)
[2020-04-04] MEDS ORDERED: GuaiFENesin/D-METHORPHAN [SUGAR-FREE] 200-20MG/10 ML SYRUP UDCUP PO ONE (03:00)
[2020-04-04 03:24] LABS: HEMATOCRIT 41.7 % (36-46); LYMPHOCYTES # (AUTO) 2.7 K/uL (1.0-4.8); LYMPHOCYTES % (AUTO) 43.9 % (22.0-44.0); MEAN CORPUSCULAR HEMOGLOBIN 31.4 pg (26.0-34.0); MEAN CORPUSCULAR HGB CONC 33.5 G/dL (31.0-37.0); MEAN CORPUSCULAR VOLUME 94 fL (80-100); MONOCYTES # (AUTO) 0.3 K/uL (0.1-1.0); MONOCYTES % (AUTO) 5.2 % (2.0-9.0); NEUTROPHILS # (AUTO) 2.9 K/uL (1.8-7.7); NEUTROPHILS % (AUTO) 46.9 % (40.0-70.0); PLATELET COUNT (AUTO) 270 K/uL (150-450); RED BLOOD CELL COUNT(AUTO) 4.45 MIL/uL (4.00-5.20); RED CELL DISTRIBUTION WIDTH 13.7 % (11.5-14.5)
[2020-04-04 03:29] LABS: ANION GAP 6 mmol/L (8-16); CALCIUM, TOTAL 9.2 mg/dL (8.8-10.5); CARBON DIOXIDE 31 mmol/L (22-29); CHLORIDE 96 mmol/L (98-107); CREATININE 0.85 mg/dL (0.60-1.30); GLOMERULAR FILTR. RATE CALC > 60 mL/min (>60); GLUCOSE,RANDOM 243 mg/dL (70-110); POTASSIUM 3.7 mmol/L (3.5-5.1); SODIUM SERUM 133 mmol/L (136-145); UREA NITROGEN, BLOOD 9 mg/dL (7-18)
[2020-04-04] MEDS ORDERED: 0.9% SODIUM CHLORIDE 15 ML NEB SOLUTION NEB ONE (03:33)
[2020-04-04 03:35] LABS: ALANINE AMINOTRANSFERASE 22 U/L (12-78); ALBUMIN 3.9 g/dL (3.4-5.0); ALKALINE PHOSPHATASE 105 U/L (46-116); ASPARTATE AMINOTRANSFERASE 13 U/L (15-37); BILIRUBIN,TOTAL 0.2 mg/dL (0.1-1.0); TOTAL PROTEIN, SERUM 8.4 g/dL (6.4-8.2)
[2020-04-04] MEDS ORDERED: ACETAMINOPHEN 500 MG TABLET PO ONE (03:45)
[2020-04-04 03:53] LABS: GLUCOSE,POINT OF CARE 209 MG/DL (70-110)
[2020-04-04] MEDS ORDERED: BACLOFEN 10 MG TABLET PO ONE (04:00)
[2020-04-04] MEDS ORDERED: QUEtiapine FUMARATE 100 MG TABLET PO ONE (04:00)
[2020-04-04 08:30] VITALS: BP 128/79
== END 2020-04-04 09:01 | disposition home or self-care (01) ==
LOC: EMS 02:25
DX: J44.1 Chronic obstructive pulmonary disease with (acute) exacerbation (principal); F25.9 Schizoaffective disorder, unspecified; M62.838 Other muscle spasm; F31.9 Bipolar disorder, unspecified; E11.9 Type 2 diabetes mellitus without complications; K21.9 Gastro-esophageal reflux disease without esophagitis; I10 Essential (primary) hypertension; F17.210 Nicotine dependence, cigarettes, uncomplicated; Z79.4 Long term (current) use of insulin; Z88.1 Allergy status to other antibiotic agents; Z88.0 Allergy status to penicillin; Z79.899 Other long term (current) drug therapy
CPT/HCPCS: 36415; 71045; 80053; 82962; 84484; 85025; 94644; 96372; 99285; J2930; J7611

== ENCOUNTER 2020-04-24 03:08 | Emergency (ER) | payer OTHER ==
[~2020-04-24] VITALS: Ht 157.5 cm; Wt 61.0 kg
[~2020-04-24 03:08] MED LIST changes: -GLYB5 PO; +GLYB5TAB10 PO; +PRED-409 PO; -PRED5 PO
[2020-04-24] MEDS ORDERED: ALBUTEROL SULFATE 5 MG/ML 20 ML NEB SOLN [BULK] NEB ONE ×3 (03:30→05:15)
[2020-04-24] MEDS ORDERED: IPRATROPIUM BROMIDE 0.5 MG/2.5 ML NEB SOLUTION NEB ONE ×3 (03:30→05:15)
[2020-04-24] MEDS: MethylPREDNISolone SOD SUCC 125 MG/2 ML VIAL IVP ONE ×2 (04:15→04:41)
[2020-04-24] MEDS: MAGNESIUM SULFATE 2 GM/WATER 50 ML IV ONE ×2 (04:15→04:41)
[2020-04-24 04:45] LABS: COVID AG,FIA SOURCE NASOPHARYNGEAL
[2020-04-24] MEDS ORDERED: PredniSONE 20 MG TABLET PO ONE (05:30)
[2020-04-24] MEDS ORDERED: 0.9% SODIUM CHLORIDE 5 ML NEB SOLUTION NEB ONE (05:41)
[2020-04-24 06:51] VITALS: BP 139/83
== END 2020-04-24 07:39 | disposition home or self-care (01) ==
LOC: EMS 03:09
DX: J44.1 Chronic obstructive pulmonary disease with (acute) exacerbation (principal); F31.9 Bipolar disorder, unspecified; E11.9 Type 2 diabetes mellitus without complications; K21.9 Gastro-esophageal reflux disease without esophagitis; I10 Essential (primary) hypertension; F17.210 Nicotine dependence, cigarettes, uncomplicated; F14.90 Cocaine use, unspecified, uncomplicated; Z20.822 Contact with and (suspected) exposure to COVID-19; Z79.4 Long term (current) use of insulin; Z88.0 Allergy status to penicillin
CPT/HCPCS: 71045; 87426; 94640; 99285; J2930; J3475; J7611

== ENCOUNTER 2023-01-27 09:45 | Emergency (ER) | payer OTHER ==
[2023-01-27] VITALS (7 sets, daily range): BP systolic 129; BP diastolic 92; PULSE 88–92; RESP 18–20; TEMP 97.8; O2SAT 98–100
[~2023-01-27] VITALS: Ht 162.6 cm; Wt 61.4 kg
[~2023-01-27 09:45] MED LIST changes: +ALBU0.8311 NEB; +ALBU18HF12 IH; -AMLO-257 PO; +ASPI-1444 PO; -ATOR10TA84 PO; +ATOR40TA28 PO; -AUD NEB; +BECL10.62 IH; +BENZ-227 PO; -BENZ100C68 PO; +CETI-450 PO; +CLOP-31 PO; +FAMO20 PO; +GLIP-383 PO; -GLYB5TAB10 PO; +IPRA3AMP24 NEB; +IPRA4AER IH; -IPRNEB IH; -LISI-893 PO; +LOSA-382 PO; +METF-1211 PO; +METR500 PO; +MONT-35 PO; +MULT-1291 PO; +NIFE90TA91 PO; +NIRM1TAB4 PO; +NITR0.4T52 SL; -PANT-31 PO; -PRED-409 PO; +PRED-554 PO; -PRED10 PO; -PRED20 PO; +SENN-160 PO
[2023-01-27] MEDS ORDERED: IPRATROPIUM BROMIDE 0.5 MG/2.5 ML NEB SOLUTION NEB ONE (10:15)
[2023-01-27] MEDS ORDERED: PredniSONE 20 MG TABLET PO ONE (10:15)
[2023-01-27] MEDS ORDERED: ALBUTEROL SULFATE 2.5 MG/0.5 ML NEB SOLUTION NEB ONE (10:15)
[2023-01-27] MEDS ORDERED: PRED-554 PO (11:03)
[2023-01-27] MEDS ORDERED: ALBUTEROL SULFATE HFA 90 MCG/PUFF 8 GM INHALER IH ONE (11:15)
== END 2023-01-27 11:25 | disposition home or self-care (01) ==
LOC: EMS 09:49
DX: J44.9 Chronic obstructive pulmonary disease, unspecified (principal); F10.20 Alcohol dependence, uncomplicated; M19.90 Unspecified osteoarthritis, unspecified site; F31.9 Bipolar disorder, unspecified; E11.9 Type 2 diabetes mellitus without complications; E78.00 Pure hypercholesterolemia, unspecified; I10 Essential (primary) hypertension; F20.9 Schizophrenia, unspecified; F17.210 Nicotine dependence, cigarettes, uncomplicated; F14.90 Cocaine use, unspecified, uncomplicated; Z90.710 Acquired absence of both cervix and uterus; Z98.890 Other specified postprocedural states; Z88.0 Allergy status to penicillin; Z91.013 Allergy to seafood; Z88.8 Allergy status to other drugs, medicaments and biological substances
CPT/HCPCS: 99283; 94640; J7512; J3535